=== PATIENT | female | born 1940 | race American Indian/Alaskan Native ===

== ENCOUNTER 2016-08-07 19:31 | Emergency (ER) | payer MEDICARE, OTHER ==
[2016-08-07 21:25] VITALS: BP 172/93
[2016-08-07] MEDS ORDERED: Acetaminophen 325 MG Tab PO ONE (21:26)
[2016-08-07] MEDS ORDERED: LORazepam 0.5 MG Tab PO ONE ×2 (21:51→22:54)
[2016-08-07] MEDS ORDERED: Albuterol 0.083% 2.5 MG/3 ML Neb Soln NEB ONE (21:52)
[2016-08-07 22:33] LABS: CHLORIDE,CL 103 mmol/L (101-111); SODIUM,NA 135 mmol/L (135-145)
--- NOTE | 2016-08-07 22:51 | EDM.PDOC ---
ED HPI GENERAL MEDICAL PROBLEM - General Chief Complaint: General Stated Complaint: FELL JITTERY/ANXIOUS/COLD Time Seen by Provider: 08/07/16 20:15 Source of Information: Reports: Patient History Limitations: Reports: No limitations - History of Present Illness INITIAL COMMENTS - FREE TEXT/NARRATIVE: c/o feeling anxious and "jittery" chilled all day. Cough past few days. Has been at hospital all day with spouse. Not used nebs or taken meds today. Seeing on 08/13 for anxiety. Quality: Reports: Same as previous episode Associated Symptoms: Reports: chest pain, cough, fever/chills, other (anxiety) - Related Data Allergies Allergy/AdvReac Type Severity Reaction Status Date / Time erythromycin base Allergy Unknown Rash Verified 08/07/16 20:10 [Erythromycin Base] ampicillin AdvReac Unknown swelling Verified 08/07/16 20:10 of legs and feet codeine AdvReac Unknown dizzy and Verified 08/07/16 20:10 lightheaded Penicillins AdvReac Unknown swelling Verified 08/07/16 20:10 of legs and feet Home Meds: Home Meds Albuterol [Proventil Neb Soln] 3 ml NEB Q6H PRN 07/23/13 [History] Hydrochlorothiazide 25 mg PO DAILY 07/23/13 [History] Lisinopril 40 mg PO DAILY 07/23/13 [History] Mometasone/Formoterol [Dulera 200 MCG/5 MCG] 2 puff INH BID 07/23/13 [History] Tiotropium [Spiriva Handihaler] 18 mcg INH BID 07/23/13 [History] metFORMIN [Glucophage] 1,000 mg PO DAILY 07/23/13 [History] Aspirin [Halfprin] 81 mg PO BRK 05/11/15 [History] Past Medical History Cardiovascular History: Reports: Hypertension Respiratory History: Reports: Asthma, COPD, SOB Other Gastrointestinal History: Appendicitis Musculoskeletal History: Reports: Arthritis Psychiatric History: Reports: Anxiety, Depression, Panic attack Endocrine/Metabolic History: Reports: Diabetes, type II Hematologic History: Reports: Anemia, Blood transfusion(s) - Infectious Disease History Infectious Disease History: Reports: None - Past Surgical History HEENT Surgical History: Reports: Tonsillectomy GI Surgical History: Reports: Appendectomy, Cholecystectomy Musculoskeletal Surgical History: Reports: Arthroscopic knee Social & Family History - Family History Family Medical History: Noncontributory - Tobacco Use Smoking Status *Q: Never Smoker Years of Tobacco use: 1 Used Tobacco, but Quit: Yes Month Tobacco Last Used: April Second Hand Smoke Exposure: Yes - Caffeine Use Caffeine Use: Reports: Coffee, Soda, Tea - Alcohol Use Days Per Week of Alcohol Use: 0 - Recreational Drug Use Recreational Drug Use: No - Living Situation & Occupation Living situation: Reports: with family Occupation: retired ED ROS GENERAL - Review of Systems Review Of Systems: See Below Constitutional: Reports: chills. Denies: decreased appetite HEENT: Reports: No symptoms Respiratory: Reports: Pleuritic Chest Pain, Cough, Sputum (green at times). Denies: Shortness of Breath Cardiovascular: Reports: No symptoms. Denies: Edema, Lightheadedness GI/Abdominal: Reports: No symptoms Musculoskeletal: Reports: no symptoms Skin: Reports: no symptoms Neurological: Reports: No Symptoms Psychiatric: Reports: Anxiety ED EXAM, GENERAL - Physical Exam Exam: See Below Exam Limited By: No limitations General Appearance: alert, anxious Eye Exam: bilateral eye: PERRL Ears: normal external exam, normal TMs Nose: normal inspection Throat/Mouth: Normal inspection Head: atraumatic, normocephalic Neck: normal inspection, supple Respiratory/Chest: no respiratory distress, lungs clear, decreased breath sounds (bases). No: respiratory distress, rales, rhonchi, wheezing Cardiovascular: normal peripheral pulses, regular rate, rhythm, no edema GI/Abdominal: normal bowel sounds Back Exam: normal inspection Extremities: normal inspection Neurological: alert, oriented, normal cognition Psychiatric: normal affect, anxious Skin Exam: Warm, Dry, Intact, Normal color Course - Vital Signs Last Recorded V/S: Last Vital Signs Temp 99.7 F 08/07/16 22:33 Pulse 104 H 08/07/16 22:13 Resp 24 H 08/07/16 21:25 BP 172/93 H 08/07/16 21:25 Pulse Ox 95 08/07/16 21:25 - Orders/Labs/Meds Orders: Active Orders 24 hr Category Date Time Status RT Aerosol Therapy [RC] ASDIRECTED Care 08/07/16 21:52 Active CULTURE BLOOD [BC] Stat Lab 08/07/16 21:45 Received CULTURE BLOOD [BC] Stat Lab 08/07/16 21:50 Received Blood Culture x2 Reflex Set [OM.PC] Stat Oth 08/07/16 21:26 Ordered Labs: Laboratory Tests 08/07/16 08/07/16 08/07/16 Range/Units 21:45 21:45 21:45 WBC 10.2 H (5.0-10.0) 10^3/uL RBC 4.56 (4.2-5.4) 10^6/uL Hgb 11.9 L (12.0-16.0) g/dL Hct 36.9 L (37.0-47.0) % MCV 80.9 (80-100) fL MCH 26.1 L (27.0-34.0) pg MCHC 32.2 L (33.0-35.0) g/dL Plt Count 247 (150-450) 10^3/uL Neut % (Auto) 75.2 (42.2-75.2) % Lymph % (Auto) 14.1 L (20.5-50.1) % [place] % (Auto) 8.9 H (2-8) % Eos % (Auto) 1.6 (1.0-3.0) % Baso % (Auto) 0.2 (0.0-1.0) % Sodium 135 (135-145) mmol/L Potassium 3.3 L (3.6-5.0) mmol/L Chloride 103 (101-111) mmol/L Carbon Dioxide 26.0 (21.0-31.0) mmol/L Anion Gap 9.3 BUN 9 (7-18) mg/dL Creatinine 0.8 (0.6-1.3) mg/dL Est Cr Clr Drug Dosing 45.14 mL/min Estimated GFR (MDRD) > 60 BUN/Creatinine Ratio 11.25 Glucose 160 H (74-105) mg/dL Calcium 8.4 (8.4-10.2) mg/dl Total Bilirubin 1.2 H (0.2-1.0) mg/dL AST 29 (10-42) IU/L ALT 17 (10-60) IU/L Alkaline Phosphatase 105 (42-121) IU/L C-Reactive Protein 2.1 H (0.0-1.3) mg/dL Total Protein 7.5 (6.7-8.2) g/dl Albumin 3.8 (3.2-5.5) g/dl Globulin 3.7 Albumin/Globulin Ratio 1.03 Meds: Medications Discontinued Medications Generic Name Dose Route Start Last Admin Trade Name Ashley PRN Reason Stop Dose Admin Acetaminophen 650 mg 08/07/16 21:26 08/07/16 21:32 Tylenol PO 08/07/16 21:27 650 mg NOW ONE Administration Albuterol 2.5 mg 08/07/16 21:52 08/07/16 22:00 Proventil Neb Soln NEB 08/07/16 21:53 2.5 mg ONETIME ONE Administration Lorazepam 0.5 mg 08/07/16 21:51 08/07/16 22:02 Ativan PO 08/07/16 21:52 0.5 mg ONETIME ONE Administration Lorazepam Confirm 08/07/16 22:54 08/07/16 23:33 Ativan Administered 08/07/16 22:55 Not Given Dose 1 mg .ROUTE .STK-MED ONE - Radiology Interpretation Free Text/Narrative:: CXR negative Departure - Departure Time of Disposition: 22:48 Disposition: Home, Self-Care 01 Condition: good Clinical Impression: COPD (chronic obstructive pulmonary disease) Qualifiers: COPD type: chronic bronchitis Chronic bronchitis type: unspecified Qualified Code(s): J42 - Unspecified chronic bronchitis Instructions: Shortness of Breath, [id number] Referrals: PCP,Unobtain [Primary Care Provider] - Forms: ED Department Discharge Additional Instructions: lorazepam 0.5mg one every 6 hours as needed for severe anxiety #2 Continue home medications Make sure to so scheduled nebulizer treatments during day follow up if symptoms change take rest periods during day - My Orders Last 24 Hours: My Active Orders 08/07/16 21:26 Blood Culture x2 Reflex Set [OM.PC] Stat 08/07/16 21:45 CULTURE BLOOD [BC] Stat 08/07/16 21:50 CULTURE BLOOD [BC] Stat 08/07/16 21:52 RT Aerosol Therapy [RC] ASDIRECTED - Assessment/Plan Last 24 Hours: My Active Orders 08/07/16 21:26 Blood Culture x2 Reflex Set [OM.PC] Stat 08/07/16 21:45 CULTURE BLOOD [BC] Stat 08/07/16 21:50 CULTURE BLOOD [BC] Stat 08/07/16 21:52 RT Aerosol Therapy [RC] ASDIRECTED
[2016-08-07] MEDS ORDERED: LORazepam 0.5 MG Tab ONE (22:54)
== END 2016-08-07 22:58 | disposition home or self-care (01) ==
LOC: DL.ED 19:31
DX: J42 Unspecified chronic bronchitis (principal); I10 Essential (primary) hypertension; J45.909 Unspecified asthma, uncomplicated; M19.90 Unspecified osteoarthritis, unspecified site; F41.9 Anxiety disorder, unspecified; F32.9 Major depressive disorder, single episode, unspecified; E11.9 Type 2 diabetes mellitus without complications; Z86.2 Personal history of diseases of the blood and blood-forming organs and certain disorders involving the immune mechanism; Z88.0 Allergy status to penicillin; Z88.1 Allergy status to other antibiotic agents; Z88.5 Allergy status to narcotic agent; Z79.82 Long term (current) use of aspirin; Z79.84 Long term (current) use of oral hypoglycemic drugs; Z79.899 Other long term (current) drug therapy; Z98.890 Other specified postprocedural states; Z90.49 Acquired absence of other specified parts of digestive tract
CPT/HCPCS: 36415; 71020; 80053; 85025; 86140; 87040; 94640; 99284; A9270; J7620; 99283

== ENCOUNTER 2016-10-02 22:03 | Emergency (ER) | payer MEDICARE, OTHER ==
[2016-10-02 22:50] VITALS: BP 134/93
--- NOTE | 2016-10-02 23:28 | EDM.PDOC ---
ED HPI GENERAL MEDICAL PROBLEM - General Chief Complaint: Respiratory Problem Stated Complaint: HIGH TEMP, [id number] Time Seen by Provider: 10/02/16 23:17 Source of Information: Reports: Patient History Limitations: Reports: No Limitations - History of Present Illness INITIAL COMMENTS - FREE TEXT/NARRATIVE: This 76 yo female patient reports to the ED with increased shortness of breath and a cough. The patient reports she has a history of COPD, but has been having the current cough for the past 3-4 days. The patient reports she had a fever while at home of 102. The patient reports she took Tylenol (1000 mg) due to her fever. The patient reports she has not been in to see a primary care facility due to a change in the providers at the [facility]. The patient reports she does have an appointment at the end of the month with Luanne Jasmine. Onset: Gradual Duration: Day(s):, Constant, Getting Worse Location: Reports: Chest Quality: Reports: Dull Severity: Moderate Improves with: Reports: Rest Worsens with: Reports: Movement Context: Reports: Other Associated Symptoms: Reports: cough w sputum, Fever/Chills Treatments SUPPORT TECHNICIAN: Reports: Acetaminophen Epigastric Pain Score (Numeric/FACES): 5 - Related Data Allergies Allergy/AdvReac Type Severity Reaction Status Date / Time erythromycin base Allergy Unknown Rash Verified 10/02/16 22:51 [Erythromycin Base] ampicillin AdvReac Unknown swelling Verified 10/02/16 22:51 of legs and feet codeine AdvReac Unknown dizzy and Verified 10/02/16 22:51 lightheaded Penicillins AdvReac Unknown swelling Verified 10/02/16 22:51 of legs and feet Home Meds: Home Meds Albuterol [Proventil Neb Soln] 3 ml NEB Q6H PRN 07/23/13 [History] Hydrochlorothiazide 25 mg PO DAILY 07/23/13 [History] Lisinopril 40 mg PO DAILY 07/23/13 [History] Mometasone/Formoterol [Dulera 200 MCG/5 MCG] 2 puff INH BID 07/23/13 [History] Tiotropium [Spiriva Handihaler] 18 mcg INH BID 07/23/13 [History] metFORMIN [Glucophage] 1,000 mg PO DAILY 07/23/13 [History] Aspirin [Halfprin] 81 mg PO BRK 05/11/15 [History] Past Medical History Cardiovascular History: Reports: Hypertension Respiratory History: Reports: Asthma, COPD, SOB Other Gastrointestinal History: Appendicitis Musculoskeletal History: Reports: Arthritis Psychiatric History: Reports: Anxiety, Depression, Panic Attack Endocrine/Metabolic History: Reports: Diabetes, Type II Hematologic History: Reports: Anemia, Blood Transfusion(s) - Infectious Disease History Infectious Disease History: Reports: None - Past Surgical History HEENT Surgical History: Reports: Tonsillectomy GI Surgical History: Reports: Appendectomy, Cholecystectomy Musculoskeletal Surgical History: Reports: Arthroscopic Knee Social & Family History - Family History Family Medical History: Noncontributory - Tobacco Use Smoking Status *Q: Never Smoker Years of Tobacco use: 1 Used Tobacco, but Quit: Yes Month Tobacco Last Used: April Hand Smoke Exposure: No - Caffeine Use Caffeine Use: Reports: Coffee, Soda, Tea - Alcohol Use Days Per Week of Alcohol Use: 0 - Recreational Drug Use Recreational Drug Use: No - Living Situation & Occupation Living situation: Reports: with Family Occupation: Retired ED ROS GENERAL - Review of Systems Review Of Systems: ROS reveals no pertinent complaints other than HPI. ED EXAM, GENERAL - Physical Exam Exam: See Below Exam Limited By: No Limitations General Appearance: Alert, WD/WN, Moderate Distress, Obese Eye Exam: Bilateral Eye: EOMI, Normal Inspection, PERRL Ears: Normal External Exam, Normal Canal, Hearing Grossly Normal, Normal TMs Nose: Normal Inspection, Normal Mucosa, No Blood Throat/Mouth: Normal Inspection, Normal Lips, Normal Teeth, Normal Gums, Normal Oropharynx, Normal Voice, No Airway Compromise Head: Atraumatic, Normocephalic Neck: Normal Inspection, Supple, Non-Tender, Full Range of Motion Respiratory/Chest: Decreased Breath Sounds, Rhonchi (diffuse) Cardiovascular: Normal Peripheral Pulses, Regular Rate, Rhythm, No Edema, No Gallop, No JVD, No Murmur, No Rub GI/Abdominal: Normal Bowel Sounds, Soft, Non-Tender, No Organomegaly, No Distention, No Abnormal Bruit, No Mass (Female) Exam: Deferred Rectal (Female) Exam: Deferred Back Exam: Normal Inspection, Full Range of Motion Extremities: Normal Inspection, Normal Range of Motion, Non-Tender, Normal Capillary Refill, No Pedal Edema Neurological: Alert, Oriented, CN II-XII Intact, Normal Cognition, No Motor/ Sensory Deficits Psychiatric: Normal Affect, Normal Mood Skin Exam: Warm, Dry, Intact, Normal Color, No Rash Lymphatic: No Adenopathy Course - Vital Signs Last Recorded V/S: Last Vital Signs Temp 37.6 C 10/02/16 22:46 Pulse 95 10/02/16 22:46 Resp 18 10/02/16 22:46 BP 134/93 H 10/02/16 22:46 Pulse Ox 95 10/02/16 22:46 - Orders/Labs/Meds Orders: Active Orders 24 hr Category Date Time Status CULTURE BLOOD [BC] Stat Lab 10/02/16 23:32 Received Sodium Chloride 0.9% [Normal Saline] 500 ml Med 10/02/16 23:30 Active IV .BOLUS cefTRIAXone [Rocephin] 1 gm Med 10/03/16 00:11 Ordered Sodium Chloride 0.9% [Normal Saline] 50 ml IV ONETIME Medication Orders Sodium Chloride (Normal Saline) 500 mls @ 999 mls/hr IV .BOLUS VLAD Last Admin: 10/02/16 23:33 Dose: 999 mls/hr Ceftriaxone Sodium 1 gm/ (Sodium Chloride) 50 mls @ 100 mls/hr IV ONETIME ONE Stop: 10/03/16 00:40 Labs: Laboratory Tests 10/02/16 10/02/16 10/02/16 Range/Units 23:32 23:32 23:32 WBC 12.9 H (5.0-10.0) 10^3/uL RBC 4.65 (4.2-5.4) 10^6/uL Hgb 12.2 (12.0-16.0) g/dL Hct 37.6 (37.0-47.0) % MCV 80.9 (80-100) fL MCH 26.2 L (27.0-34.0) pg MCHC 32.4 L (33.0-35.0) g/dL Plt Count 261 (150-450) 10^3/uL Neut % (Auto) 77.1 H (42.2-75.2) % Lymph % (Auto) 14.8 L (20.5-50.1) % [place] % (Auto) 7.0 (2-8) % Eos % (Auto) 0.9 L (1.0-3.0) % Baso % (Auto) 0.2 (0.0-1.0) % Sodium 135 (135-145) mmol/L Potassium 3.6 (3.6-5.0) mmol/L Chloride 102 (101-111) mmol/L Carbon Dioxide 25.0 (21.0-31.0) mmol/L Anion Gap 11.6 BUN 14 (7-18) mg/dL Creatinine 0.7 (0.6-1.3) mg/dL Est Cr Clr Drug Dosing 56.56 mL/min Estimated GFR (MDRD) > 60 BUN/Creatinine Ratio 20.00 Glucose 136 H (74-105) mg/dL Lactic Acid 0.9 (0.5-2.2) mmol/L Calcium 8.8 (8.4-10.2) mg/dl Total Bilirubin 1.3 H (0.2-1.0) mg/dL AST 32 (10-42) IU/L ALT 20 (10-60) IU/L Alkaline Phosphatase 97 (42-121) IU/L Total Protein 7.8 (6.7-8.2) g/dl Albumin 3.9 (3.2-5.5) g/dl Globulin 3.9 Albumin/Globulin Ratio 1.00 Meds: Medications Generic Name Dose Route Start Last Admin Trade Name Freq PRN Reason Stop Dose Admin Sodium Chloride 500 mls @ 999 mls/hr 10/02/16 23:30 10/02/16 23:33 Normal Saline IV 999 mls/hr .BOLUS VLAD Administration Ceftriaxone Sodium 1 gm/ 50 mls @ 100 mls/hr 10/03/16 00:11 Sodium Chloride IV 10/03/16 00:40 ONETIME ONE Discontinued Medications Generic Name Dose Route Start Last Admin Trade Name Freq PRN Reason Stop Dose Admin Azithromycin 500 mg 10/03/16 00:11 Zithromax PO 10/03/16 00:12 ONETIME ONE Benzonatate 200 mg 10/03/16 00:13 Tessalon Perles PO 10/03/16 00:14 ONETIME ONE Departure - Departure Time of Disposition: 00:25 Disposition: Home, Self-Care 01 Condition: fair Clinical Impression: Bronchitis - Discharge Information Instructions: Acute Bronchitis, [id number] Forms: ED Department Discharge Care Plan Goals: The patient was advised of the examination, lab and x-ray results during the visit. The patient was given an IV dose of Rocephin, an oral dose of Azithromycin and an oral dose of Tessalon Perles while in the ED. The patient was discharged with a script for Azithromycin (250 mg) #4 to take 1 by mouth daily for 4 days and Tessalon Perles (200 mg) #30 to take 1 by mouth 3 times per day. If the patient has any additional symptoms or concerns, the patient should follow-up with her primary care facility or return to the emergency department. - My Orders Last 24 Hours: My Active Orders 10/02/16 23:30 Sodium Chloride 0.9% [Normal Saline] 500 ml IV .BOLUS 10/02/16 23:32 CULTURE BLOOD [BC] Stat 10/03/16 00:11 cefTRIAXone [Rocephin] 1 gm Sodium Chloride 0.9% [Normal Saline] 50 ml IV ONETIME - Assessment/Plan Last 24 Hours: My Active Orders 10/02/16 23:30 Sodium Chloride 0.9% [Normal Saline] 500 ml IV .BOLUS 10/02/16 23:32 CULTURE BLOOD [BC] Stat 10/03/16 00:11 cefTRIAXone [Rocephin] 1 gm Sodium Chloride 0.9% [Normal Saline] 50 ml IV ONETIME
[2016-10-02] MEDS ORDERED: Sodium Chloride 0.9% 500 ML IV SCH (23:30)
[2016-10-03] LABS: CHLORIDE,CL 102 mmol/L (101-111); SODIUM,NA 135 mmol/L (135-145)
[2016-10-03] MEDS ORDERED: Azithromycin 250 MG Tab PO ONE (00:11)
[2016-10-03] MEDS ORDERED: cefTRIAXone 1 GM in Sodium Chloride 0.9% 50 ML IV ONE (00:11)
[2016-10-03] MEDS ORDERED: Benzonatate 100 MG Cap PO ONE (00:13)
== END 2016-10-03 01:00 | disposition home or self-care (01) ==
LOC: DL.ED 22:03
DX: J40 Bronchitis, not specified as acute or chronic (principal); I10 Essential (primary) hypertension; J45.909 Unspecified asthma, uncomplicated; J44.9 Chronic obstructive pulmonary disease, unspecified; M19.90 Unspecified osteoarthritis, unspecified site; E11.9 Type 2 diabetes mellitus without complications; Z86.2 Personal history of diseases of the blood and blood-forming organs and certain disorders involving the immune mechanism; Z90.49 Acquired absence of other specified parts of digestive tract; Z88.0 Allergy status to penicillin; Z88.1 Allergy status to other antibiotic agents; Z88.5 Allergy status to narcotic agent; Z79.899 Other long term (current) drug therapy; Z79.82 Long term (current) use of aspirin
CPT/HCPCS: 36415; 71020; 80053; 83605; 85025; 87040; 96365; 99284; A9270; J0696; J7040; J7050

== ENCOUNTER 2017-01-16 20:43 | Emergency (ER) | payer MEDICARE, OTHER ==
[2017-01-16] MEDS ORDERED: LORazepam 0.5 MG Tab PO ONE ×2 (20:44→23:39)
[2017-01-16 22:45] VITALS: BP 147/71
[2017-01-16] MEDS ORDERED: Albuterol 0.083% 2.5 MG/3 ML Neb Soln NEB ONE (23:39)
--- NOTE | 2017-01-17 00:45 | EDM.PDOC ---
ED HPI GENERAL MEDICAL PROBLEM - General Chief Complaint: Respiratory Problem Stated Complaint: HARD TIME BREATHING, [id number] Time Seen by Provider: 01/16/17 21:30 Source of Information: Reports: Patient History Limitations: Reports: No Limitations - History of Present Illness INITIAL COMMENTS - FREE TEXT/NARRATIVE: C/O of feeling short of breath, anxious and not sleeping well. Occasional cough. No fever. Reports upcoming pulmonology appointment. Has mental [facility] appointment tomorrow and felling anxious about that also. Notes some guilt that spouse is in [place] but admits that he is doing well and his health has been better since being in home. Onset: Today - Related Data Allergies Allergy/AdvReac Type Severity Reaction Status Date / Time erythromycin base Allergy Unknown Rash Verified 01/16/17 21:05 [Erythromycin Base] ampicillin AdvReac Unknown swelling Verified 01/16/17 21:05 of legs and feet codeine AdvReac Unknown dizzy and Verified 01/16/17 21:05 lightheaded Penicillins AdvReac Unknown swelling Verified 01/16/17 21:05 of legs and feet Home Meds: Home Meds Albuterol [Proventil Neb Soln] 3 ml NEB Q6H PRN 07/23/13 [History] Hydrochlorothiazide 25 mg PO DAILY 07/23/13 [History] Lisinopril 40 mg PO DAILY 07/23/13 [History] Mometasone/Formoterol [Dulera 200 MCG/5 MCG] 2 puff INH BID 07/23/13 [History] Tiotropium [Spiriva Handihaler] 18 mcg INH BID 07/23/13 [History] metFORMIN [Glucophage] 1,000 mg PO DAILY 07/23/13 [History] Aspirin [Halfprin] 81 mg PO BRK 05/11/15 [History] Past Medical History Cardiovascular History: Reports: Hypertension Respiratory History: Reports: Asthma, COPD, SOB Other Gastrointestinal History: Appendicitis 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: Musculoskeletal History: Reports: Arthritis Psychiatric History: Reports: Anxiety, Depression, Panic Attack Endocrine/Metabolic History: Reports: Diabetes, Type II Hematologic History: Reports: Anemia, Blood Transfusion(s) - Infectious Disease History Infectious Disease History: Reports: None - Past Surgical History HEENT Surgical History: Reports: Tonsillectomy GI Surgical History: Reports: Appendectomy, Cholecystectomy Musculoskeletal Surgical History: Reports: Arthroscopic Knee Social & Family History - Family History Family Medical History: Noncontributory - Tobacco Use Smoking Status *Q: Never Smoker Years of Tobacco use: 1 Used Tobacco, but Quit: Yes Month Tobacco Last Used: April Second Hand Smoke Exposure: Yes - Caffeine Use Caffeine Use: Reports: None - Alcohol Use Days Per Week of Alcohol Use: 0 - Recreational Drug Use Recreational Drug Use: No - Living Situation & Occupation Living situation: Reports: with Family Occupation: Retired ED ROS GENERAL - Review of Systems Review Of Systems: See Below Constitutional: Reports: No Symptoms. Denies: Fever HEENT: Reports: Throat Pain (intermittent) Respiratory: Reports: Shortness of Breath, Wheezing Cardiovascular: Reports: No Symptoms GI/Abdominal: Reports: No Symptoms Musculoskeletal: Reports: No Symptoms Skin: Reports: No Symptoms Neurological: Reports: No Symptoms Psychiatric: Reports: Anxiety ED EXAM, GENERAL - Physical Exam Exam: See Below Exam Limited By: No Limitations General Appearance: Alert, No Apparent Distress Eye Exam: Bilateral Eye: EOMI Ears: Normal External Exam, Hearing Grossly Normal, Normal TMs Ear Exam: Bilateral Ear: Auricle Normal, Canal Normal, TM normal Nose: Normal Inspection Throat/Mouth: Normal Inspection, Normal Oropharynx Head: Atraumatic, Normocephalic Neck: Normal Inspection. No: Lymphadenopathy (L), Lymphadenopathy (R) Respiratory/Chest: No Respiratory Distress, Decreased Breath Sounds, Wheezing ( scattered expiratory clears with deep inspiration) Cardiovascular: Normal Peripheral Pulses, Regular Rate, Rhythm GI/Abdominal: Normal Bowel Sounds Neurological: Alert, Oriented, Normal Cognition, Normal Gait Psychiatric: Normal Affect, Anxious, Flat Affect Skin Exam: Warm, Intact, Normal Color, No Rash Course - Vital Signs Last Recorded V/S: Last Vital Signs Temp 97.6 F 01/16/17 22:44 Pulse 70 01/16/17 22:44 Resp 16 01/16/17 22:44 BP 147/71 H 01/16/17 22:44 Pulse Ox 96 01/16/17 22:44 - Orders/Labs/Meds Meds: Medications Discontinued Medications Generic Name Dose Route Start Last Admin Trade Name Freq PRN Reason Stop Dose Admin Albuterol 2.5 mg 01/16/17 23:39 01/16/17 23:45 Proventil Neb Soln NEB 01/16/17 23:40 2.5 mg ONETIME ONE Administration Lorazepam 0.5 mg 01/16/17 23:39 01/16/17 23:44 Ativan PO 01/16/17 23:40 0.5 mg ONETIME ONE Administration Lorazepam Confirm 01/17/17 00:52 Ativan Administered 01/17/17 00:53 Dose 1 mg .ROUTE .STK-MED ONE Lorazepam 1 mg 01/16/17 20:44 Ativan PO 01/16/17 20:45 .STK-MED ONE - Radiology Interpretation Free Text/Narrative:: CXR unremarkable, no pnuemonia, - Re-Assessments/Exams Free Text/Narrative Re-Assessment/Exam: 01/24/17 10:52 Improved breath sounds following neb. 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
[2017-01-17] MEDS ORDERED: LORazepam 0.5 MG Tab ONE (00:52)
== END 2017-01-17 00:59 | disposition home or self-care (01) ==
LOC: DL.ED 20:43
DX: J44.9 Chronic obstructive pulmonary disease, unspecified (principal); F41.9 Anxiety disorder, unspecified; I10 Essential (primary) hypertension; F32.9 Major depressive disorder, single episode, unspecified; M19.90 Unspecified osteoarthritis, unspecified site; E11.21 Type 2 diabetes mellitus with diabetic nephropathy; Z86.2 Personal history of diseases of the blood and blood-forming organs and certain disorders involving the immune mechanism; Z90.49 Acquired absence of other specified parts of digestive tract; Z98.890 Other specified postprocedural states; Z87.891 Personal history of nicotine dependence; Z79.84 Long term (current) use of oral hypoglycemic drugs; Z79.82 Long term (current) use of aspirin; Z79.899 Other long term (current) drug therapy; Z88.0 Allergy status to penicillin; Z88.1 Allergy status to other antibiotic agents; Z88.5 Allergy status to narcotic agent
CPT/HCPCS: 71010; 99284; 99285; A9270; J7620

== ENCOUNTER 2017-02-18 20:31 | Emergency (ER) | payer MEDICARE, OTHER ==
[2017-02-18 20:37] VITALS: BP 156/62
[2017-02-18] MEDS ORDERED: Sodium Chloride 0.9% 10 ML Syringe FLUSH PRN (20:54)
--- NOTE | 2017-02-18 21:01 | EDM.PDOC ---
ED HPI GENERAL MEDICAL PROBLEM - General Chief Complaint: Syncope Stated Complaint: [facility] Time Seen by Provider: 02/18/17 20:40 Source of Information: Reports: Patient History Limitations: Reports: No Limitations, Altered Mental Status - History of Present Illness INITIAL COMMENTS - FREE TEXT/NARRATIVE: patient comes emergency department today with complaints of shortness of breath and cough. Patient does have a history of COPD and over the past 3 days has had increasing amount of coughing in the evening as well as shortness of breath. She has tried her home nebulizer without relief. She does complain of some generalized weakness and tiredness over the past 3 days as well. Denies any fevers but does complain of chills. Denies any pain in her chest. She is unable to produce anything when she coughs. Denies any abdominal pain nausea or vomiting. Denies any hematuria dysuria or urinary frequency. Denies any flank pain. She also relates that she has been dealing with quite a bit of stress recently and is quite anxious. She typically sleeps in the recliner at home and has done so for the past 4 years due to some pain in her knee following her procedure and she is unable to sleep in a bed. Her was recently put in the skilled nursing and she has to commute to see him every day. She lies awake at night many times worrying and concerned about many family tragic deaths as well as her in the skilled nursing. She lives a home alone for the first time in her life. 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 - Related Data Allergies Allergy/AdvReac Type Severity Reaction Status Date / Time erythromycin base Allergy Unknown Rash Verified 02/18/17 20:38 [Erythromycin Base] ampicillin AdvReac Unknown swelling Verified 02/18/17 20:38 of legs and feet codeine AdvReac Unknown dizzy and Verified 02/18/17 20:38 lightheaded Penicillins AdvReac Unknown swelling Verified 02/18/17 20:38 of legs and feet Home Meds: Home Meds Albuterol [Proventil Neb Soln] 3 ml NEB Q6H PRN 07/23/13 [History] Hydrochlorothiazide 25 mg PO DAILY 07/23/13 [History] Lisinopril 40 mg PO DAILY 07/23/13 [History] Mometasone/Formoterol [Dulera 200 MCG/5 MCG] 2 puff INH BID 07/23/13 [History] Tiotropium [Spiriva Handihaler] 18 mcg INH BID 07/23/13 [History] metFORMIN [Glucophage] 1,000 mg PO DAILY 07/23/13 [History] Aspirin [Halfprin] 81 mg PO BRK 05/11/15 [History] Past Medical History Cardiovascular History: Reports: Hypertension Respiratory History: Reports: Asthma, COPD, SOB Other Gastrointestinal History: Appendicitis 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: Musculoskeletal History: Reports: Arthritis Neurological History: Reports: Head Trauma Psychiatric History: Reports: Anxiety, Depression, Panic Attack Endocrine/Metabolic History: Reports: Diabetes, Type II Hematologic History: Reports: Anemia, Blood Transfusion(s) Immunologic History: Reports: None Oncologic (Cancer) History: Reports: None Dermatologic History: Reports: None - Infectious Disease History Infectious Disease History: Reports: None - Past Surgical History HEENT Surgical History: Reports: Tonsillectomy GI Surgical History: Reports: Appendectomy, Cholecystectomy Musculoskeletal Surgical History: Reports: Arthroscopic Knee Social & Family History - Family History Family Medical History: Noncontributory - Tobacco Use Smoking Status *Q: Never Smoker Years of Tobacco use: 1 Used Tobacco, but Quit: Yes Month Tobacco Last Used: April Second Hand Smoke Exposure: Yes - Caffeine Use Caffeine Use: Reports: None - Alcohol Use Days Per Week of Alcohol Use: 0 - Recreational Drug Use Recreational Drug Use: No - Living Situation & Occupation Living situation: Reports: with Family Occupation: Retired ED ROS GENERAL - Review of Systems Review Of Systems: ROS reveals no pertinent complaints other than HPI. ED EXAM, GENERAL - Physical Exam Exam: See Below Exam Limited By: No Limitations General Appearance: Alert, WD/WN, No Apparent Distress Ears: Normal External Exam, Normal Canal, Normal TMs Nose: Normal Inspection Throat/Mouth: Normal Inspection Head: Atraumatic, Normocephalic Neck: Normal Inspection, Supple, Non-Tender Respiratory/Chest: No Respiratory Distress, Lungs Clear, Normal Breath Sounds, No Accessory Muscle Use, Chest Non-Tender Cardiovascular: Normal Peripheral Pulses, Regular Rate, Rhythm, No Edema, No Gallop, No JVD, No Murmur Peripheral Pulses: 2+: Brachial (L), Brachial (R), Radial (L), Radial (R), Posterior Tibial (L), Posterior Tibial (R), Dorsalis Pedis (L), Dorsalis Pedis ( R) GI/Abdominal: Normal Bowel Sounds, Soft, Non-Tender, No Organomegaly, No Distention (Female) Exam: Deferred Rectal (Female) Exam: Deferred Back Exam: Normal Inspection, Full Range of Motion Extremities: Normal Inspection, Normal Range of Motion, Non-Tender, No Pedal Edema, Normal Capillary Refill Neurological: Alert, Oriented, CN II-XII Intact, Normal Cognition Psychiatric: Normal Affect Skin Exam: Warm, Dry, Intact, Normal Color, No Rash Lymphatic: No Adenopathy EKG INTERPRETATION EKG Date: 02/18/17 Time: 20:38 Rhythm: NSR Rate (Beats/Min): 79 P-Wave: Present QRS: Other (and Left anterior fasicular block.) ST-T: Normal QT: Normal Comparison: No Change Course - Vital Signs Last Recorded V/S: Last Vital Signs Temp 36.3 C 02/18/17 20:33 Pulse 77 02/18/17 20:33 Resp 20 02/18/17 20:33 BP 156/62 H 02/18/17 20:33 Pulse Ox 97 02/18/17 20:33 - Orders/Labs/Meds Orders: Active Orders 24 hr Category Date Time Status EKG 12 Lead [EKG Documentation Completion] [RC] STAT Care 02/18/17 20:39 Active Peripheral IV Care [RC] . DIRECTED Care 02/18/17 20:54 Active LORazepam [Ativan] Med 02/18/17 21:39 Once 0.5 mg PO ONETIME ONE Sodium Chloride 0.9% [Saline Flush] Med 02/18/17 20:54 Active 10 ml FLUSH ASDIRECTED PRN Peripheral IV Insertion Adult [OM.PC] Stat Oth 02/18/17 20:54 Ordered Medication Orders Sodium Chloride (Saline Flush) 10 ml FLUSH ASDIRECTED PRN PRN Reason: Keep Vein Open Last Admin: 02/18/17 20:50 Dose: 10 ml Labs: Laboratory Tests 02/18/17 02/18/17 02/18/17 Range/Units 20:47 20:47 20:47 WBC 6.6 (5.0-10.0) 10^3/uL RBC 4.23 (4.2-5.4) 10^6/uL Hgb 11.6 L (12.0-16.0) g/dL Hct 34.9 L (37.0-47.0) % MCV 82.5 (80-100) fL MCH 27.4 (27.0-34.0) pg MCHC 33.2 (33.0-35.0) g/dL Plt Count 267 (150-450) 10^3/uL Neut % (Auto) 46.4 (42.2-75.2) % Lymph % (Auto) 38.4 (20.5-50.1) % [place] % (Auto) 11.8 H (2-8) % Eos % (Auto) 3.2 H (1.0-3.0) % Baso % (Auto) 0.2 (0.0-1.0) % Sodium 133 L (135-145) mmol/L Potassium 3.4 L (3.6-5.0) mmol/L Chloride 99 L (101-111) mmol/L Carbon Dioxide 26.0 (21.0-31.0) mmol/L Anion Gap 11.4 BUN 13 (7-18) mg/dL Creatinine 0.6 (0.6-1.3) mg/dL Est Cr Clr Drug Dosing 67.80 mL/min Estimated GFR (MDRD) > 60 BUN/Creatinine Ratio 21.66 Glucose 120 H (74-105) mg/dL Lactic Acid 1.3 (0.5-2.2) mmol/L Calcium 8.9 (8.4-10.2) mg/dl Total Bilirubin 0.9 (0.2-1.0) mg/dL AST 27 (10-42) IU/L ALT 16 (10-60) IU/L Alkaline Phosphatase 92 (42-121) IU/L Troponin I < 0.02 (0.00-0.02) ng/ml B-Natriuretic Peptide (0-100) pg/ml Total Protein 7.4 (6.7-8.2) g/dl Albumin 3.8 (3.2-5.5) g/dl Globulin 3.6 Albumin/Globulin Ratio 1.06 02/18/17 Range/Units 20:47 WBC (5.0-10.0) 10^3/uL RBC (4.2-5.4) 10^6/uL Hgb (12.0-16.0) g/dL Hct (37.0-47.0) % MCV (80-100) fL MCH (27.0-34.0) pg MCHC (33.0-35.0) g/dL Plt Count (150-450) 10^3/uL Neut % (Auto) (42.2-75.2) % Lymph % (Auto) (20.5-50.1) % [place] % (Auto) (2-8) % Eos % (Auto) (1.0-3.0) % Baso % (Auto) (0.0-1.0) % Sodium (135-145) mmol/L Potassium (3.6-5.0) mmol/L Chloride (101-111) mmol/L Carbon Dioxide (21.0-31.0) mmol/L Anion Gap BUN (7-18) mg/dL Creatinine (0.6-1.3) mg/dL Est Cr Clr Drug Dosing mL/min Estimated GFR (MDRD) BUN/Creatinine Ratio Glucose (74-105) mg/dL Lactic Acid (0.5-2.2) mmol/L Calcium (8.4-10.2) mg/dl Total Bilirubin (0.2-1.0) mg/dL AST (10-42) IU/L ALT (10-60) IU/L Alkaline Phosphatase (42-121) IU/L Troponin I (0.00-0.02) ng/ml B-Natriuretic Peptide 20 (0-100) pg/ml Total Protein (6.7-8.2) g/dl Albumin (3.2-5.5) g/dl Globulin Albumin/Globulin Ratio Meds: Medications Generic Name Dose Route Start Last Admin Trade Name Freq PRN Reason Stop Dose Admin Sodium Chloride 10 ml 02/18/17 20:54 02/18/17 20:50 Saline Flush FLUSH 10 ml ASDIRECTED PRN Administration Keep Vein Open - Radiology Interpretation Free Text/Narrative:: CXR per radiology, No acute pulmonary findings. No significant interval change when compared to the chest 01/16/17. - Re-Assessments/Exams Free Text/Narrative Re-Assessment/Exam: 02/18/17 21:42 review of the laboratory evaluation as well as a chest x-ray and the labs with the patient and family as a negative workup was relayed to them. Further discussion with the patient and the family this really sounds like anxiety not a true COPD exacerbation. Further discussion identifies that she has been more anxious especially at night when she goes to sleep at home alone since her has moved into the skilled nursing and she is anxious about sleeping by herself at home. Her shortness of breath is primarily at night when she is getting ready to go to bed. Recently she was seen in this emergency department and was prescribed Ativan with resolution of the above symptoms. Follow-up with her primary care at that time. I will give her another short course of Ativan at this time for her anxiety I do not think acute management of COPD exacerbation as needed with a negative workup and history of this going on for quite some time. Discussed this with patient and her family are comfortable with this plan and her questions are answered. Departure - Departure Time of Disposition: 19:39 Disposition: Home, Self-Care 01 Clinical Impression: SOB (shortness of breath), Anxiety Instructions: Panic Attacks, [id number], Chronic Obstructive Pulmonary Disease, [id number] Forms: ED Department Discharge Additional Instructions: Continue previous medication therapy for COPD. Ativan 0.5mg every 6 hrs as needed for anxiety. Caution sedation. RX given to the patient. Contact PCP and make appointment in the next week for residential therapy of your anxiety and counseling. Return to the ed if new or worsening symptoms. Recheck as guided above. - My Orders Last 24 Hours: My Active Orders 02/18/17 20:39 EKG 12 Lead [EKG Documentation Completion] [RC] STAT 02/18/17 20:54 Peripheral IV Care [RC] . DIRECTED Sodium Chloride 0.9% [Saline Flush] 10 ml FLUSH ASDIRECTED PRN Peripheral IV Insertion Adult [OM.PC] Stat 02/18/17 21:39 LORazepam [Ativan] 0.5 mg PO ONETIME ONE - Assessment/Plan Last 24 Hours: My Active Orders 02/18/17 20:39 EKG 12 Lead [EKG Documentation Completion] [RC] STAT 02/18/17 20:54 Peripheral IV Care [RC] . DIRECTED Sodium Chloride 0.9% [Saline Flush] 10 ml FLUSH ASDIRECTED PRN Peripheral IV Insertion Adult [OM.PC] Stat 02/18/17 21:39 LORazepam [Ativan] 0.5 mg PO ONETIME ONE Assessment:: Anxiety SOB/COPD Plan: Continue previous medication therapy for COPD. Ativan 0.5mg every 6 hrs as needed for anxiety. Caution sedation. RX given to the patient. Contact PCP and make appointment in the next week for residential therapy of your anxiety and counseling. Return to the ed if new or worsening symptoms. Recheck as guided above.
[2017-02-18 21:15] LABS: CHLORIDE,CL 99 mmol/L (101-111); SODIUM,NA 133 mmol/L (135-145)
[2017-02-18] MEDS ORDERED: LORazepam 0.5 MG Tab PO ONE (21:39)
--- NOTE | 2017-02-19 11:16 | EKG ---
02/18/2017 - NETTE ROBLERO - TIME: 2037 hours. FINDINGS: EKG shows normal sinus rhythm. There is right bundle-branch block. [facility] /[id number]
== END 2017-02-18 21:49 | disposition home or self-care (01) ==
LOC: DL.ED 20:31
DX: R06.02 Shortness of breath (principal); F41.9 Anxiety disorder, unspecified; J44.9 Chronic obstructive pulmonary disease, unspecified; Z88.1 Allergy status to other antibiotic agents; Z88.0 Allergy status to penicillin; Z88.5 Allergy status to narcotic agent; Z79.84 Long term (current) use of oral hypoglycemic drugs; Z79.82 Long term (current) use of aspirin
CPT/HCPCS: 36415; 71020; 80053; 83605; 83880; 84484; 85025; 93005; 93010; 99285; A9270; J7050

== ENCOUNTER 2017-05-12 17:46 | Emergency (ER) | payer MEDICARE, OTHER ==
[2017-05-12 17:55] VITALS: BP 148/80
[2017-05-12] MEDS ORDERED: Albuterol/Ipratropium 3.0-0.5 MG/3 ML Neb Soln NEB ONE (18:24)
--- NOTE | 2017-05-12 18:28 | EDM.PDOC ---
ED HPI GENERAL MEDICAL PROBLEM - General Stated Complaint: COLD [id number] Time Seen by Provider: 05/12/17 18:20 Source of Information: Reports: Patient History Limitations: Reports: No Limitations - History of Present Illness INITIAL COMMENTS - FREE TEXT/NARRATIVE: This 77 yo female patient reports to the ED with a 4 day history of increased shortness of breath. The patient reports that she has used her albuterol neb treatment 2 times today which helped her shortness of breath. The patient reports she has been previously diagnosed with COPD, but later told that she does not have COPD. The patient denies any fever or chills. Onset Date: 05/09/17 Duration: Day(s): (4), Constant, Getting Worse Location: Reports: Chest Quality: Reports: Other Severity: Moderate Improves with: Reports: Rest Worsens with: Reports: Movement Associated Symptoms: Reports: Cough, Fever/Chills, Shortness of Breath - Related Data Allergies Allergy/AdvReac Type Severity Reaction Status Date / Time erythromycin base Allergy Unknown Rash Verified 05/12/17 18:04 [Erythromycin Base] ampicillin AdvReac Unknown swelling Verified 05/12/17 18:04 of legs and feet codeine AdvReac Unknown dizzy and Verified 05/12/17 18:04 lightheaded Penicillins AdvReac Unknown swelling Verified 05/12/17 18:04 of legs and feet Home Meds: Home Meds Albuterol [Proventil Neb Soln] 3 ml NEB Q6H PRN 07/23/13 [History] Hydrochlorothiazide 25 mg PO DAILY 07/23/13 [History] Lisinopril 40 mg PO DAILY 07/23/13 [History] Mometasone/Formoterol [Dulera 200 MCG/5 MCG] 2 puff INH BID 07/23/13 [History] Tiotropium [Spiriva Handihaler] 18 mcg INH BID 07/23/13 [History] metFORMIN [Glucophage] 1,000 mg PO DAILY 07/23/13 [History] Aspirin [Halfprin] 81 mg PO BRK 05/11/15 [History] Past Medical History Cardiovascular History: Reports: Hypertension Respiratory History: Reports: Asthma, COPD, SOB Other Gastrointestinal History: Appendicitis 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: Musculoskeletal History: Reports: Arthritis Neurological History: Reports: Head Trauma Psychiatric History: Reports: Anxiety, Depression, Panic Attack Endocrine/Metabolic History: Reports: Diabetes, Type II Hematologic History: Reports: Anemia, Blood Transfusion(s) Immunologic History: Reports: None Oncologic (Cancer) History: Reports: None Dermatologic History: Reports: None - Infectious Disease History Infectious Disease History: Reports: None - Past Surgical History HEENT Surgical History: Reports: Tonsillectomy GI Surgical History: Reports: Appendectomy, Cholecystectomy Musculoskeletal Surgical History: Reports: Arthroscopic Knee Social & Family History - Family History Family Medical History: Noncontributory - Tobacco Use Smoking Status *Q: Never Smoker Years of Tobacco use: 1 Used Tobacco, but Quit: No Month Tobacco Last Used: April Second Hand Smoke Exposure: Yes - Caffeine Use Caffeine Use: Reports: None - Alcohol Use Days Per Week of Alcohol Use: 0 - Recreational Drug Use Recreational Drug Use: No - Living Situation & Occupation Living situation: Reports: with Family Occupation: Retired ED ROS GENERAL - Review of Systems Review Of Systems: ROS reveals no pertinent complaints other than HPI. ED EXAM, GENERAL - Physical Exam Exam: See Below Exam Limited By: No Limitations General Appearance: Alert, WD/WN, Anxious, Moderate Distress Eye Exam: Bilateral Eye: EOMI, Normal Inspection, PERRL Ears: Normal External Exam, Normal Canal, Hearing Grossly Normal, Normal TMs Nose: Normal Inspection, Normal Mucosa, No Blood Throat/Mouth: Normal Inspection, Normal Lips, Normal Teeth, Normal Gums, Normal Oropharynx, Normal Voice, No Airway Compromise Head: Atraumatic, Normocephalic Neck: Normal Inspection, Supple, Non-Tender, Full Range of Motion Respiratory/Chest: No Accessory Muscle Use, Chest Non-Tender, Decreased Breath Sounds, Rhonchi (diffuse mild) Cardiovascular: Normal Peripheral Pulses, Regular Rate, Rhythm, No Edema, No Gallop, No JVD, No Murmur, No Rub GI/Abdominal: Normal Bowel Sounds, Soft, Non-Tender, No Organomegaly, No Distention, No Abnormal Bruit, No Mass (Female) Exam: Deferred Rectal (Female) Exam: Deferred Back Exam: Normal Inspection, Full Range of Motion, NT Extremities: Normal Inspection, Normal Range of Motion, Non-Tender, Normal Capillary Refill, No Pedal Edema Neurological: Alert, Oriented, CN II-XII Intact, Normal Cognition, Normal Gait, Normal Reflexes, No Motor/Sensory Deficits Psychiatric: Normal Affect, Anxious Skin Exam: Warm, Dry, Intact, Normal Color, No Rash Lymphatic: No Adenopathy Course - Vital Signs Last Recorded V/S: Last Vital Signs Temp 37.0 C 05/12/17 17:54 Pulse 106 H 05/12/17 17:54 Resp 18 05/12/17 17:54 BP 148/80 H 05/12/17 17:54 Pulse Ox 96 05/12/17 17:54 - Orders/Labs/Meds Orders: Active Orders 24 hr Category Date Time Status RT Aerosol Therapy [RC] ASDIRECTED Care 05/12/17 18:24 Ordered CULTURE STREP A CONFIRMATION [] Stat Lab 05/12/17 17:56 Results STREP SCRN A RAPID W CULT CONF [] Stat Lab 05/12/17 17:58 Ordered Labs: Laboratory Tests 05/12/17 05/12/17 Range/Units 18:05 18:05 WBC 6.7 (5.0-10.0) 10^3/uL RBC 4.31 (4.2-5.4) 10^6/uL Hgb 11.5 L (12.0-16.0) g/dL Hct 34.8 L (37.0-47.0) % MCV 80.7 (80-100) fL MCH 26.7 L (27.0-34.0) pg MCHC 33.0 (33.0-35.0) g/dL Plt Count 240 (150-450) 10^3/uL Neut % (Auto) 65.4 (42.2-75.2) % Lymph % (Auto) 19.9 L (20.5-50.1) % [place] % (Auto) 13.5 H (2-8) % Eos % (Auto) 0.9 L (1.0-3.0) % Baso % (Auto) 0.3 (0.0-1.0) % Sodium 131 L (135-145) mmol/L Potassium 3.3 L (3.6-5.0) mmol/L Chloride 98 L (101-111) mmol/L Carbon Dioxide 24.0 (21.0-31.0) mmol/L Anion Gap 12.3 BUN 11 (7-18) mg/dL Creatinine 0.8 (0.6-1.3) mg/dL Est Cr Clr Drug Dosing 48.72 mL/min Estimated GFR (MDRD) > 60 BUN/Creatinine Ratio 13.75 Glucose 120 H (74-105) mg/dL Calcium 8.6 (8.4-10.2) mg/dl Total Bilirubin 0.7 (0.2-1.0) mg/dL AST 36 (10-42) IU/L ALT 22 (10-60) IU/L Alkaline Phosphatase 82 (42-121) IU/L Total Protein 7.5 (6.7-8.2) g/dl Albumin 3.8 (3.2-5.5) g/dl Globulin 3.7 Albumin/Globulin Ratio 1.03 Meds: Medications Discontinued Medications Generic Name Dose Route Start Last Admin Trade Name Freq PRN Reason Stop Dose Admin Albuterol/Ipratropium 3 ml 05/12/17 18:24 Duoneb 3.0-0.5 Mg/3 Ml NEB 05/12/17 18:25 ONETIME ONE Levofloxacin 500 mg 05/12/17 18:31 Levaquin PO 05/12/17 18:32 ONETIME ONE Methylprednisolone Sodium Succinate 40 mg 05/12/17 18:31 Solu-Medrol IM 05/12/17 18:32 ONETIME ONE Departure - Departure Time of Disposition: 18:35 Disposition: Home, Self-Care 01 Condition: Fair Clinical Impression: Bronchitis, COPD exacerbation - Discharge Information Instructions: Chronic Obstructive Pulmonary Disease Exacerbation, [id number] , Acute Bronchitis, [id number] Forms: ED Department Discharge Care Plan Goals: The patient was advised of the examination, lab and x-ray results during the visit. The patient was given a Duoneb treatment, an injection of Solumedrol and an oral dose of Levaquin while in the ED. The patient was discharged with a script for Levaquin (500 mg) #5 to take 1 by mouth daily for 5 days and a Medrol Dose Pack to take as directed. If the patient has any additional symptoms or concerns, the patient should follow-up with her primary care facility or return to the emergency department. - My Orders Last 24 Hours: My Active Orders 05/12/17 17:56 CULTURE STREP A CONFIRMATION [RM] Stat 05/12/17 17:58 STREP SCRN A RAPID W CULT CONF [RM] Stat 05/12/17 18:24 RT Aerosol Therapy [RC] ASDIRECTED - Assessment/Plan Last 24 Hours: My Active Orders 05/12/17 17:56 CULTURE STREP A CONFIRMATION [RM] Stat 05/12/17 17:58 STREP SCRN A RAPID W CULT CONF [RM] Stat 05/12/17 18:24 RT Aerosol Therapy [RC] ASDIRECTED
[2017-05-12 18:29] LABS: CHLORIDE,CL 98 mmol/L (101-111); SODIUM,NA 131 mmol/L (135-145)
[2017-05-12] MEDS ORDERED: methylPREDNISolone Sodium Succinate 40 MG/1 ML SDV IM ONE (18:31)
[2017-05-12] MEDS ORDERED: Levofloxacin 500 MG Tab PO ONE (18:31)
== END 2017-05-12 19:14 | disposition home or self-care (01) ==
LOC: DL.ED 17:46
DX: J44.1 Chronic obstructive pulmonary disease with (acute) exacerbation (principal); I10 Essential (primary) hypertension; Z79.84 Long term (current) use of oral hypoglycemic drugs; E11.40 Type 2 diabetes mellitus with diabetic neuropathy, unspecified; Z88.1 Allergy status to other antibiotic agents; Z88.5 Allergy status to narcotic agent; Z88.0 Allergy status to penicillin; Z79.82 Long term (current) use of aspirin; Z79.899 Other long term (current) drug therapy
CPT/HCPCS: 36415; 71046; 80053; 85025; 87081; 87430; 87804; 94640; 96372; 99284; A9270; J2920; 99283

== ENCOUNTER 2017-06-10 21:00 | Emergency (ER) | payer MEDICARE, OTHER ==
[2017-06-10] MEDS ORDERED: Sodium Chloride 0.9% 10 ML Syringe FLUSH PRN (21:14)
[2017-06-10 21:48] LABS: CHLORIDE,CL 98 mmol/L (101-111); SODIUM,NA 133 mmol/L (135-145)
[2017-06-10 21:59] VITALS: BP 131/60
[2017-06-10] MEDS ORDERED: Azithromycin 250 MG Tab PO ONE (22:03)
--- NOTE | 2017-06-10 22:03 | EDM.PDOC ---
ED HPI GENERAL MEDICAL PROBLEM - General Chief Complaint: Respiratory Problem Stated Complaint: BY AMBULANCE Time Seen by Provider: 06/10/17 21:04 Source of Information: Reports: Patient, EMS, EMS Notes Reviewed, RN, RN Notes Reviewed History Limitations: Reports: No Limitations - History of Present Illness INITIAL COMMENTS - FREE TEXT/NARRATIVE: Pt presents to ER per [facility] with c/o being sick for 1 week, and has worsened over the past 2 days. She states she has DMII and COPD. She states her sister recently and they had her this week. Pt states has had a cough, congestion, fever and chills, and SOB. She denies N/V/D, or Chest pain. Onset: Gradual - Related Data Allergies Allergy/AdvReac Type Severity Reaction Status Date / Time erythromycin base Allergy Unknown Rash Verified 06/10/17 22:02 [Erythromycin Base] ampicillin AdvReac Unknown swelling Verified 06/10/17 22:02 of legs and feet codeine AdvReac Unknown dizzy and Verified 06/10/17 22:02 lightheaded Penicillins AdvReac Unknown swelling Verified 06/10/17 22:02 of legs and feet Home Meds: Home Meds Albuterol [Proventil Neb Soln] 3 ml NEB Q6H PRN 07/23/13 [History] Hydrochlorothiazide 25 mg PO DAILY 07/23/13 [History] Lisinopril 40 mg PO DAILY 07/23/13 [History] Mometasone/Formoterol [Dulera 200 MCG/5 MCG] 2 puff INH BID 07/23/13 [History] Tiotropium [Spiriva Handihaler] 18 mcg INH BID 07/23/13 [History] metFORMIN [Glucophage] 1,000 mg PO DAILY 07/23/13 [History] Aspirin [Halfprin] 81 mg PO BRK 05/11/15 [History] Past Medical History Cardiovascular History: Reports: Hypertension Respiratory History: Reports: Asthma, COPD, SOB Other Gastrointestinal History: Appendicitis 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: Musculoskeletal History: Reports: Arthritis Neurological History: Reports: Head Trauma Psychiatric History: Reports: Anxiety, Depression, Panic Attack Endocrine/Metabolic History: Reports: Diabetes, Type II Hematologic History: Reports: Anemia, Blood Transfusion(s) Immunologic History: Reports: None Oncologic (Cancer) History: Reports: None Dermatologic History: Reports: None - Infectious Disease History Infectious Disease History: Reports: None - Past Surgical History HEENT Surgical History: Reports: Tonsillectomy GI Surgical History: Reports: Appendectomy, Cholecystectomy Musculoskeletal Surgical History: Reports: Arthroscopic Knee Social & Family History - Family History Family Medical History: Noncontributory - Tobacco Use Smoking Status *Q: Never Smoker Years of Tobacco use: 1 Used Tobacco, but Quit: No Month Tobacco Last Used: April Second Hand Smoke Exposure: Yes - Caffeine Use Caffeine Use: Reports: None - Alcohol Use Days Per Week of Alcohol Use: 0 - Recreational Drug Use Recreational Drug Use: No - Living Situation & Occupation Living situation: Reports: with Family Occupation: Retired ED ROS GENERAL - Review of Systems Review Of Systems: ROS reveals no pertinent complaints other than HPI. ED EXAM, GENERAL - Physical Exam Exam: See Below Exam Limited By: No Limitations General Appearance: Alert, WD/WN, Mild Distress Eye Exam: Bilateral Eye: EOMI, Normal Inspection, PERRL Ears: Normal External Exam, Hearing Grossly Normal Nose: Normal Inspection Throat/Mouth: Normal Inspection, Normal Lips, Normal Teeth, Normal Gums, Normal Oropharynx, Normal Voice, No Airway Compromise Head: Atraumatic, Normocephalic Neck: Normal Inspection, Supple, Non-Tender, Full Range of Motion Respiratory/Chest: Decreased Breath Sounds, Crackles, Wheezing Cardiovascular: Normal Peripheral Pulses, Regular Rate, Rhythm, No Edema, No Gallop, No JVD, No Murmur, No Rub Peripheral Pulses: 2+: Radial (L), Radial (R) GI/Abdominal: Normal Bowel Sounds, Soft, Non-Tender, No Distention (Female) Exam: Deferred Rectal (Female) Exam: Deferred Back Exam: Normal Inspection, Full Range of Motion Extremities: Normal Inspection, Normal Range of Motion, Non-Tender, No Pedal Edema, Normal Capillary Refill Neurological: Alert, Oriented, Normal Cognition, No Motor/Sensory Deficits Psychiatric: Normal Affect, Normal Mood, Anxious Skin Exam: Warm, Dry, Intact, Normal Color, No Rash Lymphatic: No Adenopathy Course - Vital Signs Last Recorded V/S: Last Vital Signs Temp 97.4 F 06/10/17 21:20 Pulse 87 06/10/17 21:20 Resp 19 06/10/17 21:20 BP 131/60 06/10/17 21:20 Pulse Ox 98 02/12/18 21:20 - Orders/Labs/Meds Orders: Active Orders 24 hr Category Date Time Status Peripheral IV Care [RC] . DIRECTED Care 06/10/17 21:14 Active CULTURE BLOOD [BC] Stat Lab 06/10/17 21:25 Received CULTURE BLOOD [BC] Stat Lab 06/10/17 21:27 Received UA W/MICROSCOPIC [URIN] Stat Lab 06/10/17 21:45 Received Sodium Chloride 0.9% [Saline Flush] Med 06/10/17 21:14 Active 10 ml FLUSH ASDIRECTED PRN Blood Culture x2 Reflex Set [OM.PC] Stat Oth 06/10/17 21:14 Ordered Peripheral IV Insertion Adult [OM.PC] Stat Oth 06/10/17 21:14 Ordered Medication Orders Sodium Chloride (Saline Flush) 10 ml FLUSH ASDIRECTED PRN PRN Reason: Keep Vein Open Last Admin: 06/10/17 22:14 Dose: 10 ml Labs: Laboratory Tests 06/10/17 06/10/17 06/10/17 Range/Units 21:25 21:25 21:25 WBC 8.1 (5.0-10.0) 10^3/uL RBC 4.42 (4.2-5.4) 10^6/uL Hgb 11.6 L (12.0-16.0) g/dL Hct 35.3 L (37.0-47.0) % MCV 79.9 L (80-100) fL MCH 26.2 L (27.0-34.0) pg MCHC 32.9 L (33.0-35.0) g/dL Plt Count 245 (150-450) 10^3/uL Neut % (Auto) 54.4 (42.2-75.2) % Lymph % (Auto) 32.0 (20.5-50.1) % [place] % (Auto) 11.3 H (2-8) % Eos % (Auto) 2.1 (1.0-3.0) % Baso % (Auto) 0.2 (0.0-1.0) % Sodium 133 L (135-145) mmol/L Potassium 3.2 L (3.6-5.0) mmol/L Chloride 98 L (101-111) mmol/L Carbon Dioxide 27.0 (21.0-31.0) mmol/L Anion Gap 11.2 BUN 9 (7-18) mg/dL Creatinine 0.6 (0.6-1.3) mg/dL Est Cr Clr Drug Dosing TNP Estimated GFR (MDRD) > 60 BUN/Creatinine Ratio 15.00 Glucose 115 H (74-105) mg/dL Lactic Acid 1.2 (0.5-2.2) mmol/L Calcium 8.7 (8.4-10.2) mg/dl Total Bilirubin 1.0 (0.2-1.0) mg/dL AST 31 (10-42) IU/L ALT 17 (10-60) IU/L Alkaline Phosphatase 78 (42-121) IU/L Total Protein 7.3 (6.7-8.2) g/dl Albumin 3.7 (3.2-5.5) g/dl Globulin 3.6 Albumin/Globulin Ratio 1.03 Meds: Medications Generic Name Dose Route Start Last Admin Trade Name Freq PRN Reason Stop Dose Admin Sodium Chloride 10 ml 06/10/17 21:14 06/10/17 22:14 Saline Flush FLUSH 10 ml ASDIRECTED PRN Administration Keep Vein Open Discontinued Medications Generic Name Dose Route Start Last Admin Trade Name Freq PRN Reason Stop Dose Admin Azithromycin 500 mg 06/10/17 22:03 06/10/17 22:13 Zithromax PO 06/10/17 22:04 500 mg ONETIME ONE Administration Methylprednisolone Sodium Succinate 125 mg 06/10/17 22:07 06/10/17 22:14 Solu-Medrol IVPUSH 06/10/17 22:08 125 mg ONETIME ONE Administration - Radiology Interpretation Free Text/Narrative:: Chest xray: Stable mild hyperinflation of the lungs. Calcified left lower lobe granuloma, unchanged. No focal consolidation. No pulmonary edema. See rad report Departure - Departure Time of Disposition: 22:01 Disposition: Home, Self-Care 01 Condition: Fair Clinical Impression: COPD exacerbation - Discharge Information Instructions: Chronic Obstructive Pulmonary Disease Exacerbation, [id number] , Shortness of Breath, [id number], Upper Respiratory Infection, Adult, Easy-to -Read Forms: ED Department Discharge Additional Instructions: RX: Azithromycin, prednisone Tylenol or ibuprofen for pain/fever as directed Continue nebs and inhaler as directed at home. Follow up with your primary care facility this week - My Orders Last 24 Hours: My Active Orders 06/10/17 21:14 Peripheral IV Care [RC] . DIRECTED Sodium Chloride 0.9% [Saline Flush] 10 ml FLUSH ASDIRECTED PRN Blood Culture x2 Reflex Set [OM.PC] Stat Peripheral IV Insertion Adult [OM.PC] Stat 06/10/17 21:25 CULTURE BLOOD [BC] Stat 06/10/17 21:27 CULTURE BLOOD [BC] Stat 06/10/17 21:45 UA W/MICROSCOPIC [URIN] Stat - Assessment/Plan Last 24 Hours: My Active Orders 06/10/17 21:14 Peripheral IV Care [RC] . DIRECTED Sodium Chloride 0.9% [Saline Flush] 10 ml FLUSH ASDIRECTED PRN Blood Culture x2 Reflex Set [OM.PC] Stat Peripheral IV Insertion Adult [OM.PC] Stat 06/10/17 21:25 CULTURE BLOOD [BC] Stat 06/10/17 21:27 CULTURE BLOOD [BC] Stat 06/10/17 21:45 UA W/MICROSCOPIC [URIN] Stat
[2017-06-10] MEDS ORDERED: methylPREDNISolone Sodium Succinate 125 MG/2 ML SDV IVPUSH ONE (22:07)
== END 2017-06-10 22:28 | disposition home or self-care (01) ==
LOC: DL.ED 21:00
DX: J44.1 Chronic obstructive pulmonary disease with (acute) exacerbation (principal); I10 Essential (primary) hypertension; E11.21 Type 2 diabetes mellitus with diabetic nephropathy; Z88.1 Allergy status to other antibiotic agents; Z88.5 Allergy status to narcotic agent; Z88.0 Allergy status to penicillin; Z79.899 Other long term (current) drug therapy
CPT/HCPCS: 36415; 71046; 80053; 81001; 83605; 85025; 87040; 96374; 99284; A9270; J2930; J7050; 99283

== ENCOUNTER 2017-07-04 21:20 | Emergency (ER) | payer MEDICARE, OTHER ==
[2017-07-04] MEDS ORDERED: Sodium Chloride 0.9% 10 ML Syringe FLUSH PRN (21:23)
[2017-07-04 21:28] VITALS: BP 148/63
[2017-07-04 22:01] LABS: ANION GAP 10.3; CHLORIDE,CL 100 mmol/L (101-111); SODIUM,NA 134 mmol/L (135-145)
--- NOTE | 2017-07-04 22:14 | EDM.PDOC ---
ED HPI GENERAL MEDICAL PROBLEM - General Chief Complaint: Cardiovascular Problem Stated Complaint: BY AMBULANCE Time Seen by Provider: 07/04/17 21:22 Source of Information: Reports: Patient, EMS, EMS Notes Reviewed, RN, RN Notes Reviewed History Limitations: Reports: No Limitations - History of Present Illness INITIAL COMMENTS - FREE TEXT/NARRATIVE: Pt presents to the ER per [facility] with c/o swelling in her ankles and shortness of breath. Pt states she noticed the swelling in her ankles last evening. She states she became more SOB today. She states a history of COPD and asthma, and exposure to second hand smoke. Pt states she used a nebulizer this morning, and she was given one in the ambulance and that made her feel better. Pt admits to chills and diarrhea, but denies chest pains, fever, N/V. Onset: Gradual Onset Date: 07/03/17 - Related Data Allergies Allergy/AdvReac Type Severity Reaction Status Date / Time erythromycin base Allergy Unknown Rash Verified 06/10/17 22:02 [Erythromycin Base] ampicillin AdvReac Unknown swelling Verified 06/10/17 22:02 of legs and feet codeine AdvReac Unknown dizzy and Verified 06/10/17 22:02 lightheaded Penicillins AdvReac Unknown swelling Verified 06/10/17 22:02 of legs and feet Home Meds: Home Meds Albuterol [Proventil Neb Soln] 3 ml NEB Q6H PRN 07/23/13 [History] Hydrochlorothiazide 25 mg PO DAILY 07/23/13 [History] Lisinopril 40 mg PO DAILY 07/23/13 [History] Mometasone/Formoterol [Dulera 200 MCG/5 MCG] 2 puff INH BID 07/23/13 [History] Tiotropium [Spiriva Handihaler] 18 mcg INH BID 07/23/13 [History] metFORMIN [Glucophage] 1,000 mg PO DAILY 07/23/13 [History] Aspirin [Halfprin] 81 mg PO BRK 05/11/15 [History] Past Medical History Cardiovascular History: Reports: Hypertension Respiratory History: Reports: Asthma, COPD, SOB Other Gastrointestinal History: Appendicitis 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: Musculoskeletal History: Reports: Arthritis Neurological History: Reports: Head Trauma Psychiatric History: Reports: Anxiety, Depression, Panic Attack Endocrine/Metabolic History: Reports: Diabetes, Type II Hematologic History: Reports: Anemia, Blood Transfusion(s) Immunologic History: Reports: None Oncologic (Cancer) History: Reports: None Dermatologic History: Reports: None - Infectious Disease History Infectious Disease History: Reports: None - Past Surgical History HEENT Surgical History: Reports: Tonsillectomy GI Surgical History: Reports: Appendectomy, Cholecystectomy Musculoskeletal Surgical History: Reports: Arthroscopic Knee Social & Family History - Family History Family Medical History: Noncontributory - Tobacco Use Smoking Status *Q: Unknown Ever Smoked Years of Tobacco use: 1 Used Tobacco, but Quit: No Month Tobacco Last Used: April Second Hand Smoke Exposure: Yes - Caffeine Use Caffeine Use: Reports: Coffee, Soda, Tea - Alcohol Use Days Per Week of Alcohol Use: 0 - Recreational Drug Use Recreational Drug Use: No - Living Situation & Occupation Living situation: Reports: with Family Occupation: Retired ED ROS GENERAL - Review of Systems Review Of Systems: ROS reveals no pertinent complaints other than HPI. ED EXAM, GENERAL - Physical Exam Exam: See Below Exam Limited By: No Limitations General Appearance: Alert, WD/WN, No Apparent Distress Eye Exam: Bilateral Eye: EOMI, Normal Inspection, PERRL Ears: Normal External Exam, Hearing Grossly Normal Nose: Normal Inspection Throat/Mouth: Normal Inspection, Normal Lips, Normal Teeth, Normal Gums, Normal Oropharynx, Normal Voice, No Airway Compromise Head: Atraumatic, Normocephalic Neck: Normal Inspection, Supple, Non-Tender, Full Range of Motion Respiratory/Chest: No Respiratory Distress, No Accessory Muscle Use, Chest Non- Tender, Decreased Breath Sounds, Rales (right base) Cardiovascular: Normal Peripheral Pulses, Regular Rate, Rhythm, No Gallop, No JVD, No Murmur, No Rub. No: No Edema (pedal/ankle edema bilaterally) Peripheral Pulses: 2+: Radial (L), Radial (R), Dorsalis Pedis (L), Dorsalis Pedis (R) GI/Abdominal: Normal Bowel Sounds, Soft, Non-Tender, No Organomegaly, No Distention, No Abnormal Bruit, No Mass (Female) Exam: Deferred Rectal (Female) Exam: Deferred Back Exam: Normal Inspection, Full Range of Motion, NT Extremities: Normal Inspection, Normal Range of Motion, Non-Tender, Normal Capillary Refill, No Pedal Edema Neurological: Alert, Oriented, CN II-XII Intact, Normal Cognition, Normal Gait, Normal Reflexes, No Motor/Sensory Deficits Psychiatric: Normal Affect, Normal Mood Skin Exam: Warm, Dry, Intact, Normal Color, No Rash Lymphatic: No Adenopathy EKG INTERPRETATION EKG Date: 07/04/17 Time: 21:20 Rhythm: NSR Rate (Beats/Min): 88 Comparison: No Change EKG Interpretation Comments: RBBB Course - Vital Signs Last Recorded V/S: Last Vital Signs Temp 98.8 F 07/04/17 21:27 Pulse 87 07/04/17 21:27 Resp 14 07/04/17 21:27 BP 148/63 H 07/04/17 21:27 Pulse Ox 97 07/04/17 21:27 - Orders/Labs/Meds Orders: Active Orders 24 hr Category Date Time Status EKG Documentation Completion [RC] STAT Care 07/04/17 21:23 Active Peripheral IV Care [RC] . DIRECTED Care 07/04/17 21:24 Active Peripheral IV Insertion Adult [OM.PC] Stat Oth 07/04/17 21:23 Ordered Labs: Laboratory Tests 07/04/17 07/04/17 07/04/17 Range/Units 21:35 21:35 22:00 WBC 7.3 (5.0-10.0) 10^3/uL RBC 4.38 (4.2-5.4) 10^6/uL Hgb 11.4 L (12.0-16.0) g/dL Hct 34.5 L (37.0-47.0) % MCV 78.8 L (80-100) fL MCH 26.0 L (27.0-34.0) pg MCHC 33.0 (33.0-35.0) g/dL Plt Count 248 (150-450) 10^3/uL Neut % (Auto) 56.5 (42.2-75.2) % Lymph % (Auto) 29.5 (20.5-50.1) % [place] % (Auto) 10.1 H (2-8) % Eos % (Auto) 3.5 H (1.0-3.0) % Baso % (Auto) 0.4 (0.0-1.0) % Sodium 134 L (135-145) mmol/L Potassium 3.3 L (3.6-5.0) mmol/L Chloride 100 L (101-111) mmol/L Carbon Dioxide 27.0 (21.0-31.0) mmol/L Anion Gap 10.3 BUN 14 (7-18) mg/dL Creatinine 0.7 (0.6-1.3) mg/dL Est Cr Clr Drug Dosing 55.68 mL/min Estimated GFR (MDRD) > 60 BUN/Creatinine Ratio 20.00 Glucose 120 H (74-105) mg/dL Calcium 8.6 (8.4-10.2) mg/dl Total Bilirubin 0.7 (0.2-1.0) mg/dL AST 31 (10-42) IU/L ALT 18 (10-60) IU/L Alkaline Phosphatase 79 (42-121) IU/L Troponin I 0.02 (0.00-0.02) ng/ml B-Natriuretic Peptide 14 (0-100) pg/ml Total Protein 7.2 (6.7-8.2) g/dl Albumin 3.6 (3.2-5.5) g/dl Globulin 3.6 Albumin/Globulin Ratio 1.00 Urine Color Yellow (YELLOW) Urine Appearance Slightly cloudy (CLEAR) Urine pH 7.0 (5.0-9.0) Ur Specific [place] 1.015 (1.005-1.030) Urine Protein Negative (NEGATIVE) Urine Glucose (UA) Negative (NEGATIVE) Urine Ketones Negative (NEGATIVE) Urine Occult Blood Negative (NEGATIVE) Urine Nitrite Negative (NEGATIVE) Urine Bilirubin Negative (NEGATIVE) Urine Urobilinogen 1.0 (0.2-1.0) mg/dL Ur Leukocyte Esterase Small H (NEGATIVE) Urine RBC 0-5 /HPF Urine WBC 0-5 (0-5/HPF) /HPF Ur Epithelial Cells Moderate H /HPF Urine Bacteria Moderate H (0-FEW/HPF) /HPF Influenza A and B: Negative Meds: Medications Discontinued Medications Generic Name Dose Route Start Last Admin Trade Name Freq PRN Reason Stop Dose Admin Sodium Chloride 10 ml 07/04/17 21:23 Saline Flush FLUSH ASDIRECTED PRN Keep Vein Open - Radiology Interpretation Free Text/Narrative:: Chest xray: No acute findings See rad report Departure - Departure Time of Disposition: 22:37 Disposition: Home, Self-Care 01 Condition: Fair Clinical Impression: SOB (shortness of breath) URI (upper respiratory infection) Qualifiers: URI type: unspecified viral URI Qualified Code(s): J06.9 - Acute upper respiratory infection, unspecified Instructions: Shortness of Breath, Adult, [id number], Upper Respiratory Infection, Adult, [id number] Forms: ED Department Discharge Additional Instructions: Use your nebulizers as directed Follow up with your primary care facility - My Orders Last 24 Hours: My Active Orders 07/04/17 21:23 EKG Documentation Completion [RC] STAT Peripheral IV Insertion Adult [OM.PC] Stat 07/04/17 21:24 Peripheral IV Care [RC] . DIRECTED - Assessment/Plan Last 24 Hours: My Active Orders 07/04/17 21:23 EKG Documentation Completion [RC] STAT Peripheral IV Insertion Adult [OM.PC] Stat 07/04/17 21:24 Peripheral IV Care [RC] . DIRECTED
--- NOTE | 2017-07-08 14:06 | EKG ---
07/04/2017- NETTE ROBLERO - FINDINGS: EKG, per my reading, shows sinus rhythm with a right bundle-branch block. [facility] /[id number]
== END 2017-07-04 22:58 | disposition home or self-care (01) ==
LOC: DL.ED 21:20
DX: J06.9 Acute upper respiratory infection, unspecified (principal); R06.02 Shortness of breath; I10 Essential (primary) hypertension; E11.21 Type 2 diabetes mellitus with diabetic nephropathy; Z88.1 Allergy status to other antibiotic agents; Z88.5 Allergy status to narcotic agent; Z88.0 Allergy status to penicillin; Z79.899 Other long term (current) drug therapy; Z79.84 Long term (current) use of oral hypoglycemic drugs
CPT/HCPCS: 36415; 71046; 80053; 81001; 83880; 84484; 85025; 87804; 93005; 93010; 99284; 99285

== ENCOUNTER 2017-08-07 21:23 | Emergency (ER) | payer MEDICARE, OTHER ==
--- NOTE | 2017-08-07 21:54 | EDM.PDOC ---
ED HPI GENERAL MEDICAL PROBLEM - General Chief Complaint: Abdominal Pain Stated Complaint: [id number] extreme pain in stomach Time Seen by Provider: 08/07/17 21:40 Source of Information: Reports: Patient, RN, RN Notes Reviewed History Limitations: Reports: No Limitations - History of Present Illness INITIAL COMMENTS - FREE TEXT/NARRATIVE: Pt presents to the ER with c/o RLQ pain for the past few weeks. Pt states the pain has worsened tonight after trying to get out of her recliner. Patient states she has normal bowel movements daily, with small amounts of bright red blood at times. She states she has diarrhea on and off at times. Pt admits to fever and chills, N/V/D, but denies chest pain. She states SOB and cough at times as she has a hx of COPD. Pt states she has had her gallbladder removed and was told that her appendix was removed at that time as well. Onset: Gradual Duration: Waxing/Waning Location: Reports: Abdomen (RLQ) Quality: Reports: Sharp, Stabbing Severity: Moderate Improves with: Reports: None Worsens with: Reports: None Associated Symptoms: Reports: Fever/Chills, Nausea/Vomiting, Weakness - Related Data Allergies Allergy/AdvReac Type Severity Reaction Status Date / Time erythromycin base Allergy Unknown Rash Verified 06/10/17 22:02 [Erythromycin Base] ampicillin AdvReac Unknown swelling Verified 06/10/17 22:02 of legs and feet codeine AdvReac Unknown dizzy and Verified 06/10/17 22:02 lightheaded Penicillins AdvReac Unknown swelling Verified 06/10/17 22:02 of legs and feet Home Meds: Home Meds Albuterol [Proventil Neb Soln] 3 ml NEB Q6H PRN 07/23/13 [History] Hydrochlorothiazide 25 mg PO DAILY 07/23/13 [History] Lisinopril 40 mg PO DAILY 07/23/13 [History] Mometasone/Formoterol [Dulera 200 MCG/5 MCG] 2 puff INH BID 07/23/13 [History] Tiotropium [Spiriva Handihaler] 18 mcg INH BID 07/23/13 [History] metFORMIN [Glucophage] 1,000 mg PO DAILY 07/23/13 [History] Aspirin [Halfprin] 81 mg PO BRK 05/11/15 [History] traZODone HCl [Trazodone HCl] 50 mg PO DAILY 08/07/17 [History] Past Medical History Cardiovascular History: Reports: Hypertension Respiratory History: Reports: Asthma, COPD, SOB Other Gastrointestinal History: Appendicitis 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: Musculoskeletal History: Reports: Arthritis Neurological History: Reports: Head Trauma Psychiatric History: Reports: Anxiety, Depression, Panic Attack Endocrine/Metabolic History: Reports: Diabetes, Type II Hematologic History: Reports: Anemia, Blood Transfusion(s) Immunologic History: Reports: None Oncologic (Cancer) History: Reports: None Dermatologic History: Reports: None - Infectious Disease History Infectious Disease History: Reports: None - Past Surgical History HEENT Surgical History: Reports: Tonsillectomy GI Surgical History: Reports: Appendectomy, Cholecystectomy Musculoskeletal Surgical History: Reports: Arthroscopic Knee Social & Family History - Family History Family Medical History: Noncontributory - Tobacco Use Smoking Status *Q: Unknown Ever Smoked Years of Tobacco use: 1 Used Tobacco, but Quit: No Month/Year Tobacco Last Used: April Second Hand Smoke Exposure: Yes - Caffeine Use Caffeine Use: Reports: Coffee, Soda, Tea - Alcohol Use Days Per Week of Alcohol Use: 0 - Recreational Drug Use Recreational Drug Use: No - Living Situation & Occupation Living situation: Reports: with Family Occupation: Retired ED ROS GENERAL - Review of Systems Review Of Systems: ROS reveals no pertinent complaints other than HPI. ED EXAM, GI/ABD - Physical Exam Exam: See Below Exam Limited By: No Limitations General Appearance: Alert, WD/WN, No Apparent Distress Eyes: Bilateral: Normal Appearance, EOMI Ears: Normal External Exam, Hearing Grossly Normal Nose: Normal Inspection Throat/Mouth: Normal Inspection, Normal Voice, No Airway Compromise Head: Atraumatic, Normocephalic Neck: Normal Inspection, Supple, Non-Tender, Full Range of Motion Respiratory/Chest: No Respiratory Distress, No Accessory Muscle Use, Chest Non- Tender, Decreased Breath Sounds, Wheezing (Exp, right side) Cardiovascular: Normal Peripheral Pulses, Regular Rate, Rhythm, No Gallop, No JVD, No Murmur, No Rub. No: No Edema (+1 pedal/ankle edema) GI/Abdominal Exam: Normal Bowel Sounds, Soft, No Organomegaly, No Distention, Guarding, Tender (RLQ, RUQ, LLQ) (Female) Exam: Deferred Rectal (Female) Exam: Deferred Back Exam: Normal Inspection, Full Range of Motion Extremities: Normal Capillary Refill, Limited Range of Motion Neurological: Alert, Oriented, CN II-XII Intact, Normal Cognition, Normal Gait, Normal Reflexes, No Motor/Sensory Deficits Psychiatric: Depressed Mood Skin Exam: Warm, Dry, Intact, Normal Color, No Rash Lymphatic: No Adenopathy Course - Vital Signs Last Recorded V/S: Last Vital Signs Temp 99.2 F 08/07/17 21:30 Pulse 80 08/07/17 23:00 Resp 20 08/07/17 23:00 BP 143/68 H 08/07/17 23:00 Pulse Ox 95 08/07/17 23:00 - Orders/Labs/Meds Orders: Active Orders 24 hr Category Date Time Status UA W/MICROSCOPIC [URIN] Stat Lab 08/07/17 22:32 Ordered Labs: Laboratory Tests 08/07/17 08/07/17 08/07/17 Range/Units 21:56 21:56 21:56 WBC 6.7 (5.0-10.0) 10^3/uL RBC 4.35 (4.2-5.4) 10^6/uL Hgb 11.2 L (12.0-16.0) g/dL Hct 34.4 L (37.0-47.0) % MCV 79.1 L (80-100) fL MCH 25.7 L (27.0-34.0) pg MCHC 32.6 L (33.0-35.0) g/dL Plt Count 259 (150-450) 10^3/uL Neut % (Auto) 61.4 (42.2-75.2) % Lymph % (Auto) 20.8 (20.5-50.1) % [place] % (Auto) 13.1 H (2-8) % Eos % (Auto) 4.5 H (1.0-3.0) % Baso % (Auto) 0.2 (0.0-1.0) % Sodium 130 L (135-145) mmol/L Potassium 3.7 (3.6-5.0) mmol/L Chloride 96 L (101-111) mmol/L Carbon Dioxide 27.0 (21.0-31.0) mmol/L Anion Gap 10.7 BUN 14 (7-18) mg/dL Creatinine 0.7 (0.6-1.3) mg/dL Est Cr Clr Drug Dosing 55.68 mL/min Estimated GFR (MDRD) > 60 BUN/Creatinine Ratio 20.00 Glucose 109 H (74-105) mg/dL Lactic Acid 0.7 (0.5-2.2) mmol/L Calcium 8.8 (8.4-10.2) mg/dl Total Bilirubin 1.1 H (0.2-1.0) mg/dL AST 28 (10-42) IU/L ALT 18 (10-60) IU/L Alkaline Phosphatase 84 (42-121) IU/L Total Protein 7.5 (6.7-8.2) g/dl Albumin 3.7 (3.2-5.5) g/dl Globulin 3.8 Albumin/Globulin Ratio 0.97 Lipase 31 (22-51) U/L Urine Color (YELLOW) Urine Appearance (CLEAR) Urine pH (5.0-9.0) Ur Specific [place] (1.005-1.030) Urine Protein (NEGATIVE) Urine Glucose (UA) (NEGATIVE) Urine Ketones (NEGATIVE) Urine Occult Blood (NEGATIVE) Urine Nitrite (NEGATIVE) Urine Bilirubin (NEGATIVE) Urine Urobilinogen (0.2-1.0) mg/dL Ur Leukocyte Esterase (NEGATIVE) Urine RBC /HPF Urine WBC (0-5/HPF) /HPF Ur Epithelial Cells /HPF Amorphous Sediment (0/HPF) /HPF Urine Bacteria (0-FEW/HPF) /HPF 08/07/17 Range/Units 22:32 WBC (5.0-10.0) 10^3/uL RBC (4.2-5.4) 10^6/uL Hgb (12.0-16.0) g/dL Hct (37.0-47.0) % MCV (80-100) fL MCH (27.0-34.0) pg MCHC (33.0-35.0) g/dL Plt Count (150-450) 10^3/uL Neut % (Auto) (42.2-75.2) % Lymph % (Auto) (20.5-50.1) % [place] % (Auto) (2-8) % Eos % (Auto) (1.0-3.0) % Baso % (Auto) (0.0-1.0) % Sodium (135-145) mmol/L Potassium (3.6-5.0) mmol/L Chloride (101-111) mmol/L Carbon Dioxide (21.0-31.0) mmol/L Anion Gap BUN (7-18) mg/dL Creatinine (0.6-1.3) mg/dL Est Cr Clr Drug Dosing mL/min Estimated GFR (MDRD) BUN/Creatinine Ratio Glucose (74-105) mg/dL Lactic Acid (0.5-2.2) mmol/L Calcium (8.4-10.2) mg/dl Total Bilirubin (0.2-1.0) mg/dL AST (10-42) IU/L ALT (10-60) IU/L Alkaline Phosphatase (42-121) IU/L Total Protein (6.7-8.2) g/dl Albumin (3.2-5.5) g/dl Globulin Albumin/Globulin Ratio Lipase (22-51) U/L Urine Color Yellow (YELLOW) Urine Appearance Slightly cloudy (CLEAR) Urine pH 7.0 (5.0-9.0) Ur Specific [place] 1.015 (1.005-1.030) Urine Protein Negative (NEGATIVE) Urine Glucose (UA) Negative (NEGATIVE) Urine Ketones Negative (NEGATIVE) Urine Occult Blood Negative (NEGATIVE) Urine Nitrite Negative (NEGATIVE) Urine Bilirubin Negative (NEGATIVE) Urine Urobilinogen 1.0 (0.2-1.0) mg/dL Ur Leukocyte Esterase Moderate H (NEGATIVE) Urine RBC 0-5 /HPF Urine WBC 5-10 H (0-5/HPF) /HPF Ur Epithelial Cells Few /HPF Amorphous Sediment Rare (0/HPF) /HPF Urine Bacteria Few (0-FEW/HPF) /HPF Meds: Medications Discontinued Medications Generic Name Dose Route Start Last Admin Trade Name Freq PRN Reason Stop Dose Admin Iopamidol 75 ml 08/07/17 23:28 08/07/17 23:29 Isovue-300 (61%) IVPUSH 08/07/17 23:29 75 ml ONETIME ONE Administration - Radiology Interpretation Free Text/Narrative:: CT Abdomen/Pelvis: No acute findings See rad report Departure - Departure Time of Disposition: 00:04 Disposition: Home, Self-Care 01 Condition: Fair Clinical Impression: Abdominal pain Qualifiers: Abdominal location: right lower quadrant Qualified Code(s): R10.31 - Right lower quadrant pain - Discharge Information Instructions: Abdominal Pain, Adult, [id number] Forms: ED Department Discharge Additional Instructions: Follow up with your primary care facility - My Orders Last 24 Hours: My Active Orders 08/07/17 22:32 UA W/MICROSCOPIC [URIN] Stat - Assessment/Plan Last 24 Hours: My Active Orders 08/07/17 22:32 UA W/MICROSCOPIC [URIN] Stat
[2017-08-07 22:25] LABS: CHLORIDE,CL 96 mmol/L (101-111); SODIUM,NA 130 mmol/L (135-145)
[2017-08-07] MEDS ORDERED: Iopamidol 612 MG/ML 75 ML Bottle IVPUSH ONE (23:28)
[2017-08-08 00:28] VITALS: BP 132/66
== END 2017-08-08 00:14 | disposition home or self-care (01) ==
LOC: DL.ED 21:23
DX: R10.31 Right lower quadrant pain (principal); E11.21 Type 2 diabetes mellitus with diabetic nephropathy; J44.9 Chronic obstructive pulmonary disease, unspecified; Z88.1 Allergy status to other antibiotic agents; Z88.0 Allergy status to penicillin; Z88.5 Allergy status to narcotic agent; Z79.84 Long term (current) use of oral hypoglycemic drugs; Z79.899 Other long term (current) drug therapy
CPT/HCPCS: 36415; 74177; 80053; 81001; 83605; 83690; 85025; 99284; Q9967

== ENCOUNTER 2017-08-27 19:51 | Emergency (ER) | payer MEDICARE, OTHER ==
--- NOTE | 2017-08-27 20:27 | EDM.PDOC ---
ED HPI GENERAL MEDICAL PROBLEM - General Chief Complaint: Cardiovascular Problem Stated Complaint: [id number] lightheaded and vomitting Time Seen by Provider: 08/27/17 20:00 Source of Information: Reports: Patient History Limitations: Reports: No Limitations - History of Present Illness INITIAL COMMENTS - FREE TEXT/NARRATIVE: This 77 yo female patient reports to the ED with a 3 week history of dizziness and nausea/vomiting x1 today. The patient reports she was seen in the Clinic last week for these symptoms and was given "an extra pill". The patient reports that she does not have another follow-up until September 17. The patient reports her symptoms have not gotten any worse today, but she "just wants to feel better." The patient denies any pain or other problems today. Onset: Gradual Duration: Week(s): Location: Reports: Generalized Quality: Reports: Other Severity: Moderate Improves with: Reports: None Worsens with: Reports: None Context: Reports: Other Associated Symptoms: Reports: No Other Symptoms Headache Pain Score (Numeric/FACES): 3 - Related Data Allergies Allergy/AdvReac Type Severity Reaction Status Date / Time erythromycin base Allergy Unknown Rash Verified 08/27/17 20:00 [Erythromycin Base] ampicillin AdvReac Unknown swelling Verified 08/27/17 20:00 of legs and feet codeine AdvReac Unknown dizzy and Verified 08/27/17 20:00 lightheaded Penicillins AdvReac Unknown swelling Verified 08/27/17 20:00 of legs and feet Home Meds: Home Meds Albuterol [Proventil Neb Soln] 3 ml NEB Q6H PRN 07/23/13 [History] Hydrochlorothiazide 25 mg PO DAILY 07/23/13 [History] Lisinopril 40 mg PO DAILY 07/23/13 [History] Mometasone/Formoterol [Dulera 200 MCG/5 MCG] 2 puff INH BID 07/23/13 [History] Tiotropium [Spiriva Handihaler] 18 mcg INH BID 07/23/13 [History] metFORMIN [Glucophage] 1,000 mg PO DAILY 07/23/13 [History] Aspirin [Halfprin] 81 mg PO BRK 05/11/15 [History] traZODone HCl [Trazodone HCl] 50 mg PO DAILY 08/07/17 [History] Sertraline [Zoloft] 100 mg PO DAILY 08/27/17 [History] Past Medical History Cardiovascular History: Reports: Hypertension Respiratory History: Reports: Asthma, COPD, SOB Other Gastrointestinal History: Appendicitis 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: Musculoskeletal History: Reports: Arthritis Neurological History: Reports: Head Trauma Psychiatric History: Reports: Anxiety, Depression, Panic Attack Endocrine/Metabolic History: Reports: Diabetes, Type II Hematologic History: Reports: Anemia, Blood Transfusion(s) Immunologic History: Reports: None Oncologic (Cancer) History: Reports: None Dermatologic History: Reports: None - Infectious Disease History Infectious Disease History: Reports: Measles - Past Surgical History HEENT Surgical History: Reports: Tonsillectomy GI Surgical History: Reports: Appendectomy, Cholecystectomy Musculoskeletal Surgical History: Reports: Arthroscopic Knee Social & Family History - Family History Family Medical History: Noncontributory - Tobacco Use Smoking Status *Q: Never Smoker Years of Tobacco use: 1 Used Tobacco, but Quit: No Month/Year Tobacco Last Used: April Second Hand Smoke Exposure: Yes - Caffeine Use Caffeine Use: Reports: Coffee, Soda, Tea - Alcohol Use Days Per Week of Alcohol Use: 0 - Recreational Drug Use Recreational Drug Use: No - Living Situation & Occupation Living situation: Reports: with Family Occupation: Retired ED ROS GENERAL - Review of Systems Review Of Systems: ROS reveals no pertinent complaints other than HPI. ED EXAM, GENERAL - Physical Exam Exam: See Below Exam Limited By: No Limitations General Appearance: Alert, WD/WN, Moderate Distress Eye Exam: Bilateral Eye: EOMI, Normal Inspection, PERRL Ears: Normal External Exam, Normal Canal, Hearing Grossly Normal, Normal TMs Nose: Normal Inspection, Normal Mucosa, No Blood Throat/Mouth: Normal Inspection, Normal Lips, Normal Teeth, Normal Gums, Normal Oropharynx, Normal Voice, No Airway Compromise Head: Atraumatic, Normocephalic Neck: Normal Inspection, Supple, Non-Tender, Full Range of Motion Respiratory/Chest: No Respiratory Distress, Lungs Clear, Normal Breath Sounds, No Accessory Muscle Use, Chest Non-Tender Cardiovascular: Normal Peripheral Pulses, Regular Rate, Rhythm, No Edema, No Gallop, No JVD, No Murmur, No Rub GI/Abdominal: Normal Bowel Sounds, Soft, Non-Tender, No Organomegaly, No Distention, No Abnormal Bruit, No Mass (Female) Exam: Deferred Rectal (Female) Exam: Deferred Back Exam: Normal Inspection, Full Range of Motion, NT Extremities: Normal Inspection, Normal Range of Motion, Non-Tender, Normal Capillary Refill, No Pedal Edema Neurological: Alert, Oriented, CN II-XII Intact, Normal Cognition, Normal Gait, Normal Reflexes, No Motor/Sensory Deficits Psychiatric: Normal Affect, Normal Mood Skin Exam: Warm, Dry, Intact, Normal Color, No Rash Lymphatic: No Adenopathy Course - Vital Signs Last Recorded V/S: Last Vital Signs Temp 36.8 C 08/27/17 19:55 Pulse 78 08/27/17 19:55 Resp 18 08/27/17 19:55 BP 166/79 H 08/27/17 19:55 Pulse Ox 97 08/27/17 19:55 - Orders/Labs/Meds Orders: Active Orders 24 hr Category Date Time Status EKG Documentation Completion [RC] URGENT Care 08/27/17 20:08 Active UA W/MICROSCOPIC [URIN] Stat Lab 08/27/17 21:15 Ordered Labs: Laboratory Tests 08/27/17 08/27/17 08/27/17 Range/Units 20:28 20:28 21:15 WBC 6.1 (5.0-10.0) 10^3/uL RBC 4.25 (4.2-5.4) 10^6/uL Hgb 10.9 L (12.0-16.0) g/dL Hct 33.7 L (37.0-47.0) % MCV 79.3 L (80-100) fL MCH 25.6 L (27.0-34.0) pg MCHC 32.3 L (33.0-35.0) g/dL Plt Count 242 (150-450) 10^3/uL Neut % (Auto) 60.2 (42.2-75.2) % Lymph % (Auto) 26.0 (20.5-50.1) % [place] % (Auto) 12.4 H (2-8) % Eos % (Auto) 1.1 (1.0-3.0) % Baso % (Auto) 0.3 (0.0-1.0) % Sodium 134 L (135-145) mmol/L Potassium 3.4 L (3.6-5.0) mmol/L Chloride 102 (101-111) mmol/L Carbon Dioxide 25.0 (21.0-31.0) mmol/L Anion Gap 10.4 BUN 14 (7-18) mg/dL Creatinine 0.7 (0.6-1.3) mg/dL Est Cr Clr Drug Dosing 55.68 mL/min Estimated GFR (MDRD) > 60 BUN/Creatinine Ratio 20.00 Glucose 141 H (74-105) mg/dL Calcium 8.7 (8.4-10.2) mg/dl Total Bilirubin 1.1 H (0.2-1.0) mg/dL AST 29 (10-42) IU/L ALT 16 (10-60) IU/L Alkaline Phosphatase 86 (42-121) IU/L Troponin I < 0.02 (0.00-0.02) ng/ml Total Protein 7.2 (6.7-8.2) g/dl Albumin 3.7 (3.2-5.5) g/dl Globulin 3.5 Albumin/Globulin Ratio 1.06 Urine Color Yellow (YELLOW) Urine Appearance Slightly cloudy (CLEAR) Urine pH 6.5 (5.0-9.0) Ur Specific [place] 1.015 (1.005-1.030) Urine Protein Negative (NEGATIVE) Urine Glucose (UA) Negative (NEGATIVE) Urine Ketones Negative (NEGATIVE) Urine Occult Blood Negative (NEGATIVE) Urine Nitrite Negative (NEGATIVE) Urine Bilirubin Negative (NEGATIVE) Urine Urobilinogen >=8.0 H (0.2-1.0) mg/dL Ur Leukocyte Esterase Small H (NEGATIVE) Urine RBC 0-5 /HPF Urine WBC 20-30 H (0-5/HPF) /HPF Ur Epithelial Cells Few /HPF Calcium Oxalate Crystal Moderate H /HPF Amorphous Sediment Few (0/HPF) /HPF Urine Bacteria Few (0-FEW/HPF) /HPF Meds: Medications Discontinued Medications Generic Name Dose Route Start Last Admin Trade Name Freq PRN Reason Stop Dose Admin Nitrofurantoin Macrocrystals 100 mg 08/27/17 21:54 Macrobid PO 08/27/17 21:55 ONETIME ONE Departure - Departure Time of Disposition: 21:56 Disposition: Home, Self-Care 01 Condition: Fair Clinical Impression: UTI (urinary tract infection), uncomplicated Referrals: Luanne Jasmine NP [Primary Care Provider] - Forms: ED Department Discharge Care Plan Goals: The patient was advised of the examination, lab and EKG results during the visit. The patient was given an oral dose of Macrobid during the visit. The patient was discharged with a script for Macrobid (100 mg) to take 1 by mouth 2 times per day for 10 days. If the patient has any additional symptoms or concerns, the patient should follow-up with her primary care facility or return to the emergency department. - My Orders Last 24 Hours: My Active Orders 08/27/17 20:08 EKG Documentation Completion [RC] URGENT 08/27/17 21:15 UA W/MICROSCOPIC [URIN] Stat - Assessment/Plan Last 24 Hours: My Active Orders 08/27/17 20:08 EKG Documentation Completion [RC] URGENT 08/27/17 21:15 UA W/MICROSCOPIC [URIN] Stat
[2017-08-27 21:03] LABS: CHLORIDE,CL 102 mmol/L (101-111); SODIUM,NA 134 mmol/L (135-145)
[2017-08-27] MEDS ORDERED: Nitrofurantoin Monohydrate/Macrocrystalline 100 MG Cap PO ONE (21:54)
[2017-08-27 22:04] VITALS: BP 169/85
--- NOTE | 2017-08-28 14:28 | EKG ---
08/27/2017 - NETTE ROBLERO - TIME: 8:14 p.m. FINDINGS: Sinus rhythm. Right bundle branch block. [facility] /[id number]
== END 2017-08-27 22:06 | disposition home or self-care (01) ==
LOC: DL.ED 19:51
DX: N39.0 Urinary tract infection, site not specified (principal); I10 Essential (primary) hypertension; E11.21 Type 2 diabetes mellitus with diabetic nephropathy; Z88.1 Allergy status to other antibiotic agents; Z88.5 Allergy status to narcotic agent; Z88.0 Allergy status to penicillin; Z79.899 Other long term (current) drug therapy; Z79.84 Long term (current) use of oral hypoglycemic drugs; Z79.82 Long term (current) use of aspirin
CPT/HCPCS: 36415; 80053; 81001; 84484; 85025; 93005; 93010; 99284; A9270

== ENCOUNTER 2017-10-10 19:42 | Emergency (ER) | payer MEDICARE, OTHER ==
[2017-10-10 19:56] VITALS: BP 167/86
--- NOTE | 2017-10-10 19:59 | EDM.PDOC ---
ED HPI GENERAL MEDICAL PROBLEM - General Chief Complaint: Cardiovascular Problem Stated Complaint: [id number] DIZZY LIGHT HEADED Time Seen by Provider: 10/10/17 19:56 Source of Information: Reports: Patient History Limitations: Reports: No Limitations - History of Present Illness INITIAL COMMENTS - FREE TEXT/NARRATIVE: states been light headed & dizzy all winter got worse recently since spouse got pneumonia and ended up on life support and got transferred to [place]. thinks she is stressed. denies CP, only has dizziness on-off. also hadn't been able to sleep. Treatments ALTERATIONS EXPERT: Reports: Other (see below) Other Treatments ALTERATIONS EXPERT: none - Related Data Allergies Allergy/AdvReac Type Severity Reaction Status Date / Time erythromycin base Allergy Unknown Rash Verified 10/10/17 19:55 [Erythromycin Base] ampicillin AdvReac Unknown swelling Verified 10/10/17 19:55 of legs and feet codeine AdvReac Unknown dizzy and Verified 10/10/17 19:55 lightheaded Penicillins AdvReac Unknown swelling Verified 10/10/17 19:55 of legs and feet Home Meds: Home Meds Albuterol [Proventil Neb Soln] 3 ml NEB Q6H PRN 07/23/13 [History] Hydrochlorothiazide 25 mg PO DAILY 07/23/13 [History] Lisinopril 40 mg PO DAILY 07/23/13 [History] Mometasone/Formoterol [Dulera 200 MCG/5 MCG] 2 puff INH BID 07/23/13 [History] Tiotropium [Spiriva Handihaler] 18 mcg INH BID 07/23/13 [History] metFORMIN [Glucophage] 1,000 mg PO DAILY 07/23/13 [History] Aspirin [Halfprin] 81 mg PO BRK 05/11/15 [History] traZODone HCl [Trazodone HCl] 50 mg PO DAILY 08/07/17 [History] Sertraline [Zoloft] 100 mg PO DAILY 08/27/17 [History] Antibiotic 2 tab PO TID 10/10/17 [History] Past Medical History Cardiovascular History: Reports: Hypertension Respiratory History: Reports: Asthma, COPD, SOB Other Gastrointestinal History: Appendicitis 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: Musculoskeletal History: Reports: Arthritis Neurological History: Reports: Head Trauma Psychiatric History: Reports: Anxiety, Depression, Panic Attack Endocrine/Metabolic History: Reports: Diabetes, Type II Hematologic History: Reports: Anemia, Blood Transfusion(s) Immunologic History: Reports: None Oncologic (Cancer) History: Reports: None Dermatologic History: Reports: None - Infectious Disease History Infectious Disease History: Reports: Measles - Past Surgical History HEENT Surgical History: Reports: Tonsillectomy GI Surgical History: Reports: Appendectomy, Cholecystectomy Musculoskeletal Surgical History: Reports: Arthroscopic Knee Social & Family History - Family History Family Medical History: Noncontributory - Caffeine Use Caffeine Use: Reports: Coffee, Soda, Tea - Living Situation & Occupation Living situation: Reports: with Family Occupation: Retired ED ROS GENERAL - Review of Systems Review Of Systems: ROS reveals no pertinent complaints other than HPI. ED EXAM, GENERAL - Physical Exam Exam: See Below Exam Limited By: No Limitations General Appearance: Alert, WD/WN, Mild Distress, Other (distraught) Eye Exam: Bilateral Eye: PERRL (pupils ess ER @ 4mm) Ears: Hearing Grossly Normal Throat/Mouth: Normal Voice, No Airway Compromise Head: Atraumatic Neck: Non-Tender, Full Range of Motion Respiratory/Chest: No Respiratory Distress Cardiovascular: Regular Rate, Rhythm GI/Abdominal: Soft, Non-Tender Neurological: Alert, Oriented, Normal Cognition, Normal Gait, No Motor/Sensory Deficits Psychiatric: Flat Affect Skin Exam: Warm, Dry, Normal Color Lymphatic: No Adenopathy Course - Vital Signs Last Recorded V/S: Last Vital Signs Temp 36.9 C 10/10/17 19:53 Pulse 85 10/10/17 19:53 Resp 20 10/10/17 19:53 BP 167/86 H 10/10/17 19:53 Pulse Ox 98 10/10/17 19:53 - Orders/Labs/Meds Orders: Active Orders 24 hr Category Date Time Status EKG 12 Lead [EKG Documentation Completion] [RC] STAT Care 10/10/17 19:55 Active Labs: Laboratory Tests 10/10/17 10/10/17 Range/Units 20:00 20:00 WBC 6.6 (5.0-10.0) 10^3/uL RBC 4.25 (4.2-5.4) 10^6/uL Hgb 11.0 L (12.0-16.0) g/dL Hct 33.9 L (37.0-47.0) % MCV 79.8 L (80-100) fL MCH 25.9 L (27.0-34.0) pg MCHC 32.4 L (33.0-35.0) g/dL Plt Count 268 (150-450) 10^3/uL Neut % (Auto) 62.9 (42.2-75.2) % Lymph % (Auto) 23.7 (20.5-50.1) % [place] % (Auto) 11.4 H (2-8) % Eos % (Auto) 1.8 (1.0-3.0) % Baso % (Auto) 0.2 (0.0-1.0) % Sodium 135 (135-145) mmol/L Potassium 3.3 L (3.6-5.0) mmol/L Chloride 102 (101-111) mmol/L Carbon Dioxide 26.0 (21.0-31.0) mmol/L Anion Gap 10.3 BUN 13 (7-18) mg/dL Creatinine 0.8 (0.6-1.3) mg/dL Est Cr Clr Drug Dosing 48.72 mL/min Estimated GFR (MDRD) > 60 BUN/Creatinine Ratio 16.25 Glucose 104 (74-105) mg/dL Calcium 8.8 (8.4-10.2) mg/dl Total Bilirubin 1.0 (0.2-1.0) mg/dL AST 31 (10-42) IU/L ALT 18 (10-60) IU/L Alkaline Phosphatase 75 (42-121) IU/L Troponin I 0.02 (0.00-0.02) ng/ml B-Natriuretic Peptide 20 (0-100) pg/ml Total Protein 7.4 (6.7-8.2) g/dl Albumin 3.7 (3.2-5.5) g/dl Globulin 3.7 Albumin/Globulin Ratio 1.00 - Re-Assessments/Exams Free Text/Narrative Re-Assessment/Exam: 10/10/17 20:35 results discussed with pt who is feeling ok presently but would like something for her anxiety and sleep since they are driving out to [place] tomorrow to see her . 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
[2017-10-10 20:26] LABS: CHLORIDE,CL 102 mmol/L (101-111); SODIUM,NA 135 mmol/L (135-145)
[2017-10-10] MEDS ORDERED: LORazepam 1 MG Tab PO ONE (20:37)
--- NOTE | 2017-10-11 13:45 | EKG ---
10/10/2017- NETTE ROBLERO - FINDINGS: EKG, per my reading, shows sinus rhythm at the rate of 78 with a right bundle-branch block. [id number] /[id number]
== END 2017-10-10 20:59 | disposition home or self-care (01) ==
LOC: DL.ED 19:42
DX: F51.04 Psychophysiologic insomnia (principal); F43.0 Acute stress reaction; I10 Essential (primary) hypertension; E11.21 Type 2 diabetes mellitus with diabetic nephropathy; Z88.1 Allergy status to other antibiotic agents; Z88.5 Allergy status to narcotic agent; Z88.0 Allergy status to penicillin; Z79.82 Long term (current) use of aspirin; Z79.84 Long term (current) use of oral hypoglycemic drugs; Z79.899 Other long term (current) drug therapy
CPT/HCPCS: 36415; 80053; 83880; 84484; 85025; 93005; 93010; 99283; 99284; A9270

== ENCOUNTER 2017-12-29 16:55 | Emergency (ER) | payer MEDICARE, OTHER ==
[2017-12-29] MEDS ORDERED: Benzonatate 100 MG Cap PO ONE ×2 (16:56→17:13)
[2017-12-29] MEDS ORDERED: Levofloxacin 500 MG Tab PO ONE ×2 (16:56→17:47)
[2017-12-29 17:02] VITALS: BP 166/87
--- NOTE | 2017-12-29 17:55 | EDM.PDOC ---
Scribed by Cecy Jade 12/29/17 [id number] for Mark Marques MD ED HPI GENERAL MEDICAL PROBLEM - General Chief Complaint: Respiratory Problem Stated Complaint: HARD TIME BREATHING Time Seen by Provider: 12/29/17 17:08 Source of Information: Reports: Patient, RN, RN Notes Reviewed History Limitations: Reports: No Limitations - History of Present Illness INITIAL COMMENTS - FREE TEXT/NARRATIVE: Patient presents to ER with onset of cough 2 or 3 days ago, worse today with shortness of breath. Patient states she has had intermittent fever up to 105 oral. Cough has been mostly dry. Denies wheezing. Admits to some sore throat. She has had sick grandkids in her home. Kids have gotten better and have not been taken to the doctor. Onset Date: 12/27/17 Duration: Getting Worse Location: Reports: Chest, Other (throat) Quality: Reports: Ache Severity: Moderate Improves with: Reports: None Worsens with: Reports: None Associated Symptoms: Reports: No Other Symptoms Left Feet Pain Score (Numeric/FACES): 7 - Related Data Allergies Allergy/AdvReac Type Severity Reaction Status Date / Time erythromycin base Allergy Unknown Rash Verified 12/29/17 17:02 [Erythromycin Base] ampicillin AdvReac Unknown swelling Verified 12/29/17 17:02 of legs and feet codeine AdvReac Unknown dizzy and Verified 12/29/17 17:02 lightheaded Penicillins AdvReac Unknown swelling Verified 12/29/17 17:02 of legs and feet Home Meds: Home Meds Albuterol [Proventil Neb Soln] 3 ml NEB Q6H PRN 07/23/13 [History] Hydrochlorothiazide 25 mg PO DAILY 07/23/13 [History] Lisinopril 40 mg PO DAILY 07/23/13 [History] Mometasone/Formoterol [Dulera 200 MCG/5 MCG] 2 puff INH BID 07/23/13 [History] Tiotropium [Spiriva Handihaler] 18 mcg INH BID 07/23/13 [History] metFORMIN [Glucophage] 1,000 mg PO DAILY 07/23/13 [History] Aspirin [Halfprin] 81 mg PO BRK 05/11/15 [History] traZODone HCl [Trazodone HCl] 50 mg PO DAILY 08/07/17 [History] Sertraline [Zoloft] 100 mg PO DAILY 08/27/17 [History] Past Medical History Cardiovascular History: Reports: Hypertension Respiratory History: Reports: Asthma, COPD, SOB Other Gastrointestinal History: Appendicitis 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 [employer] History: Reports: Musculoskeletal History: Reports: Arthritis Neurological History: Reports: Head Trauma Psychiatric History: Reports: Anxiety, Depression, Panic Attack Endocrine/Metabolic History: Reports: Diabetes, Type II Hematologic History: Reports: Anemia, Blood Transfusion(s) Immunologic History: Reports: None Oncologic (Cancer) History: Reports: None Dermatologic History: Reports: None - Infectious Disease History Infectious Disease History: Reports: Measles - Past Surgical History HEENT Surgical History: Reports: Tonsillectomy GI Surgical History: Reports: Appendectomy, Cholecystectomy Musculoskeletal Surgical History: Reports: Arthroscopic Knee Social & Family History - Family History Family Medical History: Noncontributory - Caffeine Use Caffeine Use: Reports: Coffee - Living Situation & Occupation Living situation: Reports: with Family Occupation: Retired ED ROS GENERAL - Review of Systems Review Of Systems: ROS reveals no pertinent complaints other than HPI. ED EXAM, GENERAL - Physical Exam Exam: See Below Exam Limited By: No Limitations General Appearance: Alert, No Apparent Distress, Other (mildly ill but nontoxic appearing) Eye Exam: Bilateral Eye: Normal Inspection Ears: Normal External Exam, Normal Canal, Hearing Grossly Normal, Normal TMs Nose: No Blood, Nasal Drainage (mild and clear, congestion.) Throat/Mouth: Normal Lips, Normal Teeth, Normal Gums, Normal Voice, No Airway Compromise, Other (mild streaky pharyngeal erythema and small amount of post nasal drip. No exudates.) Head: Atraumatic Neck: Normal Inspection, Supple, Non-Tender, Full Range of Motion Respiratory/Chest: No Respiratory Distress, No Accessory Muscle Use, Chest Non- Tender, Decreased Breath Sounds, Crackles (coarse breath sounds throughout with moist nonproductive cough.). No: Rales, Rhonchi, Wheezing Cardiovascular: Regular Rate, Rhythm, No Edema GI/Abdominal: Normal Bowel Sounds, Soft, Non-Tender, No Distention. No: Guarding, Rigid, Rebound (Female) Exam: Deferred Rectal (Female) Exam: Deferred Back Exam: Normal Inspection Extremities: Normal Inspection, Normal Range of Motion, Non-Tender, Normal Capillary Refill, No Pedal Edema Neurological: Alert, Oriented, CN II-XII Intact, Normal Cognition, Normal Gait, No Motor/Sensory Deficits Psychiatric: Normal Mood Skin Exam: Warm, Dry, Intact, Normal Color, No Rash Course - Vital Signs Last Recorded V/S: Last Vital Signs Temp 36.8 C 12/29/17 16:59 Pulse 85 12/29/17 16:59 Resp 18 12/29/17 16:59 BP 166/87 H 12/29/17 16:59 Pulse Ox 98 12/29/17 16:59 - Orders/Labs/Meds Orders: Active Orders 24 hr Category Date Time Status Chest 2V [CR] Stat Exams 12/29/17 17:12 Taken STREP SCRN A RAPID W CULT CONF [RM] Stat Lab 12/29/17 17:35 Received Labs: Laboratory Tests 12/29/17 Range/Units 17:37 WBC 6.3 (5.0-10.0) 10^3/uL RBC 4.49 (4.2-5.4) 10^6/uL Hgb 11.5 L (12.0-16.0) g/dL Hct 36.1 L (37.0-47.0) % MCV 80.4 (80-100) fL MCH 25.6 L (27.0-34.0) pg MCHC 31.9 L (33.0-35.0) g/dL Plt Count 240 (150-450) 10^3/uL Neut % (Auto) 57.0 (42.2-75.2) % Lymph % (Auto) 26.8 (20.5-50.1) % Moore % (Auto) 11.8 H (2-8) % Eos % (Auto) 4.1 H (1.0-3.0) % Baso % (Auto) 0.3 (0.0-1.0) % Meds: Medications Discontinued Medications Generic Name Dose Route Start Last Admin Trade Name Freq PRN Reason Stop Dose Admin Benzonatate 200 mg 12/29/17 17:13 12/29/17 17:39 Tessalon Perles PO 12/29/17 17:14 200 mg ONETIME ONE Administration Levofloxacin 500 mg 12/29/17 17:47 Levaquin PO 12/29/17 17:48 ONETIME ONE - Radiology Interpretation Free Text/Narrative:: [facility] Final Radiology Report Call: [phone] assistance Online chat: [email or web address] Name: NETTE ROBLERO Age: 77Years F Date: 12/29/2017 SSN: -- : 1940 Study: XR CHEST 2 VIEWS Requesting Physician: MARK MARQUES Images: 2 Addl Studies: Provided Clinical History: Contrast: Contrast Medium: Contrast Amount: Contrast Method: CONFIDENTIALITY STATEMENT This report is intended only for use by the referring physician, and only in accordance with law. If you received this in error, call [phone]. Page 1 of 1 EXAM: XR Chest, 2 Views CLINICAL HISTORY: 77 years old, female; Signs and symptoms; Cough and dyspnea TECHNIQUE: Frontal and lateral views of the chest. COMPARISON: CR - Chest 2V 07/04/2017 10:10 PM FINDINGS: Lungs: Unremarkable. No consolidation. Pleural space: Unremarkable. No pneumothorax. Heart: Unremarkable. No cardiomegaly. Mediastinum: Unremarkable. Bones/joints: Unremarkable. IMPRESSION: No acute cardiopulmonary process. There is no significant interval change. Thank you for allowing us to participate in the care of your patient. Dictated and Authenticated by: Alberto Hemphill MD 12/29/2017 5:40 PM Central Time Departure - Departure Time of Disposition: 17:51 Disposition: Home, Self-Care 01 Condition: Good Clinical Impression: Acute bronchitis Qualifiers: Bronchitis organism: other organism Qualified Code(s): J20.8 - Acute bronchitis due to other specified organisms Pharyngitis Qualifiers: Pharyngitis/tonsillitis etiology: unspecified etiology Qualified Code(s): J02.9 - Acute pharyngitis, unspecified - Discharge Information Instructions: Acute Bronchitis, Adult, [id number], Pharyngitis, [id number] Forms: ED Department Discharge Additional Instructions: RX: Levaguin 500mg. RX: Tessalon [id number]. Follow up in clinic if not improved in 3 to 4 days. - My Orders Last 24 Hours: My Active Orders 12/29/17 17:12 Chest 2V [CR] Stat 12/29/17 17:35 STREP SCRN A RAPID W CULT CONF [RM] Stat - Assessment/Plan Last 24 Hours: My Active Orders 12/29/17 17:12 Chest 2V [CR] Stat 12/29/17 17:35 STREP SCRN A RAPID W CULT CONF [RM] Stat I have read and agree with the documentation that has been completed regarding this visit. By signing this record, I attest that the documentation was completed in my physical presence and is an accurate record of the encounter.
[2017-12-29] MEDS ORDERED: Levofloxacin 500 MG Tab ONE (17:56)
[2017-12-29] MEDS ORDERED: Benzonatate 100 MG Cap ONE (17:56)
== END 2017-12-29 18:04 | disposition home or self-care (01) ==
LOC: DL.ED 16:55
DX: J20.8 Acute bronchitis due to other specified organisms (principal); J02.9 Acute pharyngitis, unspecified; E11.21 Type 2 diabetes mellitus with diabetic nephropathy; I10 Essential (primary) hypertension; Z88.0 Allergy status to penicillin; Z88.5 Allergy status to narcotic agent; Z88.1 Allergy status to other antibiotic agents
CPT/HCPCS: 36415; 71046; 85025; 87081; 87430; 99285; A9270; 99283

== ENCOUNTER 2018-05-14 21:27 | Emergency (ER) | payer MEDICARE, OTHER ==
[2018-05-14 22:20] LABS: ANION GAP 12.6; CHLORIDE,CL 104 mmol/L (101-111); SODIUM,NA 135 mmol/L (135-145)
--- NOTE | 2018-05-14 23:17 | EDM.PDOC ---
ED HPI GENERAL MEDICAL PROBLEM - General Chief Complaint: Trauma Stated Complaint: UNKNOWN Time Seen by Provider: 05/14/18 21:30 Source of Information: Reports: Patient, EMS History Limitations: Reports: No Limitations - History of Present Illness INITIAL COMMENTS - FREE TEXT/NARRATIVE: Arrival via [facility] Alert talking No acute distress, C- collar on. Stated getting up out of recliner chair when heard kids coming. Dizzy with change of position and fell backwards, stated hit towards back of head, assisted up to chair by family, Initial neck pain resolved when had her usual pillow. Denied loss of consciousness, denied other injury Scheduled with PCP for problems with dizziness. - Related Data Allergies Allergy/AdvReac Type Severity Reaction Status Date / Time erythromycin base Allergy Unknown Rash Verified 05/01/18 16:26 [Erythromycin Base] ampicillin AdvReac Unknown swelling Verified 05/01/18 16:26 of legs and feet codeine AdvReac Unknown dizzy and Verified 05/01/18 16:26 lightheaded Penicillins AdvReac Unknown swelling Verified 05/01/18 16:26 of legs and feet Home Meds: Home Meds Albuterol [Proventil Neb Soln] 3 ml NEB Q6H PRN 07/23/13 [History] Hydrochlorothiazide 25 mg PO DAILY 07/23/13 [History] Lisinopril 40 mg PO DAILY 07/23/13 [History] Mometasone/Formoterol [Dulera 200 MCG/5 MCG] 2 puff INH QAM 07/23/13 [History] Tiotropium [Spiriva Handihaler] 18 mcg INH BID 07/23/13 [History] metFORMIN [Glucophage] 1,000 mg PO BID 07/23/13 [History] Aspirin [Halfprin] 81 mg PO BRK 05/11/15 [History] traZODone HCl [Trazodone HCl] 50 mg PO BEDTIME 08/07/17 [History] Sertraline [Zoloft] 100 mg PO DAILY 08/27/17 [History] Past Medical History Cardiovascular History: Reports: Hypertension Respiratory History: Reports: Asthma, COPD, SOB Other Gastrointestinal History: Appendicitis 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 [employer] History: Reports: Musculoskeletal History: Reports: Arthritis Neurological History: Reports: Head Trauma Psychiatric History: Reports: Anxiety, Depression, Panic Attack Endocrine/Metabolic History: Reports: Diabetes, Type II Hematologic History: Reports: Anemia, Blood Transfusion(s) Immunologic History: Reports: None Oncologic (Cancer) History: Reports: None Dermatologic History: Reports: None - Infectious Disease History Infectious Disease History: Reports: Measles, Shingles Other Infectious Disease History: 02/12/18 recent diagnosis of shingles - Past Surgical History HEENT Surgical History: Reports: Tonsillectomy GI Surgical History: Reports: Appendectomy, Cholecystectomy Musculoskeletal Surgical History: Reports: Arthroscopic Knee Social & Family History - Family History Family Medical History: Noncontributory - Caffeine Use Caffeine Use: Reports: Coffee - Living Situation & Occupation Living situation: Reports: with Family Occupation: Retired Review of Systems - Review of Systems Review Of Systems: See Below Constitutional: Reports: Weakness (general no recent change) Eyes: Reports: No Symptoms Ears: Reports: No Symptoms Nose: Reports: No Symptoms Mouth/Throat: Reports: No Symptoms Respiratory: Reports: No Symptoms Cardiovascular: Reports: Lightheadedness (changing position) GI/Abdominal: Reports: No Symptoms Musculoskeletal: Reports: Neck Pain Skin: Reports: No Symptoms Neurological: Reports: Headache. Denies: Confusion, Seizure, Syncope, Tremors, Difficulty Walking Psychiatric: Reports: No Symptoms ED EXAM, GENERAL - Physical Exam Exam: See Below Exam Limited By: No Limitations General Appearance: Alert, No Apparent Distress Eye Exam: Bilateral Eye: EOMI, PERRL (2) Ears: Normal External Exam, Hearing Grossly Normal, Normal TMs Nose: Normal Inspection Throat/Mouth: Normal Inspection Head: Atraumatic, Normocephalic Neck: Tender Lateral, Tender Midline (upper), Other (C collar on at scene per EMS) Respiratory/Chest: No Respiratory Distress, Lungs Clear, Normal Breath Sounds Cardiovascular: Normal Peripheral Pulses, Regular Rate, Rhythm, No Edema GI/Abdominal: Normal Bowel Sounds, Soft, Non-Tender Back Exam: Normal Inspection. No: CVA Tenderness (L), CVA Tenderness (R), Paraspinal Tenderness, Vertebral Tenderness Extremities: Normal Inspection Neurological: Oriented, CN II-XII Intact, No Motor/Sensory Deficits. No: Confused, Disoriented Psychiatric: Normal Affect Skin Exam: Warm, Dry, Intact, Normal Color. No: Wound/Incision Course - Vital Signs Last Recorded V/S: Orthostatic Blood Pressure [ 153/79 Standing] Orthostatic Blood Pressure [ 148/96 Sitting] Orthostatic Blood Pressure [ 141/77 Supine] - Orders/Labs/Meds Orders: Active Orders 24 hr Category Date Time Status Orthostatic Vital Signs [RC] ASDIRECTED Care 05/14/18 22:57 Active CULTURE URINE [RM] Urgent Lab 05/14/18 22:14 Received Labs: Laboratory Tests 05/14/18 05/14/18 05/14/18 Range/Units 21:39 21:39 21:39 WBC 4.7 L (5.0-10.0) 10^3/uL RBC 4.16 L (4.2-5.4) 10^6/uL Hgb 11.2 L (12.0-16.0) g/dL Hct 33.5 L (37.0-47.0) % MCV 80.5 (80-100) fL MCH 26.9 L (27.0-34.0) pg MCHC 33.4 (33.0-35.0) g/dL Plt Count 230 (150-450) 10^3/uL Neut % (Auto) 51.2 (42.2-75.2) % Lymph % (Auto) 30.4 (20.5-50.1) % Tate % (Auto) 14.6 H (2-8) % Eos % (Auto) 3.2 H (1.0-3.0) % Baso % (Auto) 0.6 (0.0-1.0) % PT 11.0 D (9.0-12.0) SEC INR 1.1 (0.9-1.2) Sodium 135 (135-145) mmol/L Potassium 3.6 (3.6-5.0) mmol/L Chloride 104 (101-111) mmol/L Carbon Dioxide 22.0 (21.0-31.0) mmol/L Anion Gap 12.6 BUN 11 (7-18) mg/dL Creatinine 0.7 (0.6-1.3) mg/dL Est Cr Clr Drug Dosing TNP Estimated GFR (MDRD) > 60 BUN/Creatinine Ratio 15.71 Glucose 101 (74-105) mg/dL Calcium 8.8 (8.4-10.2) mg/dl Total Bilirubin 1.4 H (0.2-1.0) mg/dL AST 32 (10-42) IU/L ALT 16 (10-60) IU/L Alkaline Phosphatase 82 (42-121) IU/L Total Protein 7.3 (6.7-8.2) g/dl Albumin 3.7 (3.2-5.5) g/dl Globulin 3.6 Albumin/Globulin Ratio 1.03 Urine Color (YELLOW) Urine Appearance (CLEAR) Urine pH (5.0-9.0) Ur Specific [place] (1.005-1.030) Urine Protein (NEGATIVE) Urine Glucose (UA) (NEGATIVE) Urine Ketones (NEGATIVE) Urine Occult Blood (NEGATIVE) Urine Nitrite (NEGATIVE) Urine Bilirubin (NEGATIVE) Urine Urobilinogen (0.2-1.0) mg/dL Ur Leukocyte Esterase (NEGATIVE) Urine RBC /HPF Urine WBC (0-5/HPF) /HPF Ur Epithelial Cells /HPF Amorphous Sediment (0/HPF) /HPF Urine Bacteria (0-FEW/HPF) /HPF 05/14/18 Range/Units 22:14 WBC (5.0-10.0) 10^3/uL RBC (4.2-5.4) 10^6/uL Hgb (12.0-16.0) g/dL Hct (37.0-47.0) % MCV (80-100) fL MCH (27.0-34.0) pg MCHC (33.0-35.0) g/dL Plt Count (150-450) 10^3/uL Neut % (Auto) (42.2-75.2) % Lymph % (Auto) (20.5-50.1) % Tate % (Auto) (2-8) % Eos % (Auto) (1.0-3.0) % Baso % (Auto) (0.0-1.0) % PT (9.0-12.0) SEC INR (0.9-1.2) Sodium (135-145) mmol/L Potassium (3.6-5.0) mmol/L Chloride (101-111) mmol/L Carbon Dioxide (21.0-31.0) mmol/L Anion Gap BUN (7-18) mg/dL Creatinine (0.6-1.3) mg/dL Est Cr Clr Drug Dosing Estimated GFR (MDRD) BUN/Creatinine Ratio Glucose (74-105) mg/dL Calcium (8.4-10.2) mg/dl Total Bilirubin (0.2-1.0) mg/dL AST (10-42) IU/L ALT (10-60) IU/L Alkaline Phosphatase (42-121) IU/L Total Protein (6.7-8.2) g/dl Albumin (3.2-5.5) g/dl Globulin Albumin/Globulin Ratio Urine Color Yellow (YELLOW) Urine Appearance Clear (CLEAR) Urine pH 7.0 (5.0-9.0) Ur Specific [place] 1.015 (1.005-1.030) Urine Protein Negative (NEGATIVE) Urine Glucose (UA) Negative (NEGATIVE) Urine Ketones Negative (NEGATIVE) Urine Occult Blood Negative (NEGATIVE) Urine Nitrite Negative (NEGATIVE) Urine Bilirubin Negative (NEGATIVE) Urine Urobilinogen 1.0 (0.2-1.0) mg/dL Ur Leukocyte Esterase Trace H (NEGATIVE) Urine RBC 0-5 /HPF Urine WBC 0-5 (0-5/HPF) /HPF Ur Epithelial Cells Rare /HPF Amorphous Sediment Rare (0/HPF) /HPF Urine Bacteria Rare (0-FEW/HPF) /HPF - Radiology Interpretation Free Text/Narrative:: Head and c- cspine negative - Re-Assessments/Exams Free Text/Narrative Re-Assessment/Exam: 05/15/18 08:06 Alert, Reports pain in back of head from fall resolved, 2215 C collar removed, c- spine cleared . Normal c-spine CT. Patient reports pain resolved with removal of C- collar. Family here, Patient conversant. Oriented. Up to bedside commode with supervision. Departure - Departure Time of Disposition: 23:14 Disposition: Home, Self-Care 01 Condition: Good Clinical Impression: Fall in home Qualifiers: Encounter type: initial encounter Qualified Code(s): W19.XXXA - Unspecified fall, initial encounter; Y92.009 - Unspecified place in unspecified non- institutional (private) residence as the place of occurrence of the external cause Contusion Qualifiers: Encounter type: initial encounter Contusion area: head Contusion of head detail : scalp Qualified Code(s): S00.03XA - Contusion of scalp, initial encounter - Discharge Information *PRESCRIPTION DRUG MONITORING PROGRAM REVIEWED*: No *COPY OF PRESCRIPTION DRUG MONITORING REPORT IN PATIENT AARON: No Instructions: Fall Prevention in the Home, [id number] Referrals: Khushboo Mei MD [Primary Care Provider] - Forms: ED Department Discharge Additional Instructions: use walker change positions slowly follow up with primary care medications as ordered family to check during night. - My Orders Last 24 Hours: My Active Orders 05/14/18 22:14 CULTURE URINE [RM] Urgent 05/14/18 22:57 Orthostatic Vital Signs [RC] ASDIRECTED - Assessment/Plan Last 24 Hours: My Active Orders 05/14/18 22:14 CULTURE URINE [RM] Urgent 05/14/18 22:57 Orthostatic Vital Signs [RC] ASDIRECTED
== END 2018-05-14 23:30 | disposition home or self-care (01) ==
LOC: DL.ED 21:27
DX: S00.03XA Contusion of scalp, initial encounter (principal); E11.9 Type 2 diabetes mellitus without complications; J44.9 Chronic obstructive pulmonary disease, unspecified; Z88.1 Allergy status to other antibiotic agents; Z88.5 Allergy status to narcotic agent; Z79.899 Other long term (current) drug therapy; W07.XXXA Fall from chair, initial encounter; Y92.009 Unspecified place in unspecified non-institutional (private) residence as the place of occurrence of the external cause
CPT/HCPCS: 36415; 70450; 72125; 72170; 80053; 81001; 85025; 85610; 87086; 99284

== ENCOUNTER 2018-06-13 18:36 | Emergency (ER) | payer MEDICARE, OTHER ==
[2018-06-13 18:40] VITALS: BP 103/57
[2018-06-13 19:43] LABS: ANION GAP 16.5; CHLORIDE,CL 97 mmol/L (101-111); SODIUM,NA 134 mmol/L (135-145)
--- NOTE | 2018-06-13 21:10 | EDM.PDOC ---
ED HPI GENERAL MEDICAL PROBLEM - General Chief Complaint: General Stated Complaint: [facility] Time Seen by Provider: 06/13/18 19:10 Source of Information: Reports: Patient, EMS History Limitations: Reports: No Limitations - History of Present Illness INITIAL COMMENTS - FREE TEXT/NARRATIVE: ED with c/o dizziness when up and generalized weakness. Reports MRI for same c/ o done this week but has not heard results. Patient admits to being anxious and feeling depressed. Expresses worry over family members. No recent fever or chills. No cough. Appetite fair. No urinary c/o No nausea, vomiting or diarrhea. - Related Data Allergies Allergy/AdvReac Type Severity Reaction Status Date / Time erythromycin base Allergy Unknown Rash Verified 06/13/18 18:37 [Erythromycin Base] ampicillin AdvReac Unknown swelling Verified 06/13/18 18:37 of legs and feet codeine AdvReac Unknown dizzy and Verified 06/13/18 18:37 lightheaded Penicillins AdvReac Unknown swelling Verified 06/13/18 18:37 of legs and feet Home Meds: Home Meds Albuterol [Proventil Neb Soln] 3 ml NEB Q6H PRN 07/23/13 [History] Hydrochlorothiazide 25 mg PO DAILY 07/23/13 [History] Lisinopril 40 mg PO DAILY 07/23/13 [History] Mometasone/Formoterol [Dulera 200 MCG/5 MCG] 2 puff INH QAM 07/23/13 [History] Tiotropium [Spiriva Handihaler] 18 mcg INH BID 07/23/13 [History] metFORMIN [Glucophage] 1,000 mg PO BID 07/23/13 [History] Aspirin [Halfprin] 81 mg PO BRK 05/11/15 [History] traZODone HCl [Trazodone HCl] 50 mg PO BEDTIME 08/07/17 [History] Sertraline [Zoloft] 100 mg PO DAILY 08/27/17 [History] Past Medical History Cardiovascular History: Reports: Hypertension Respiratory History: Reports: Asthma, COPD, SOB Other Gastrointestinal History: Appendicitis 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 [employer] History: Reports: Musculoskeletal History: Reports: Arthritis Neurological History: Reports: Head Trauma Psychiatric History: Reports: Anxiety, Depression, Panic Attack Endocrine/Metabolic History: Reports: Diabetes, Type II Hematologic History: Reports: Anemia, Blood Transfusion(s) Immunologic History: Reports: None Oncologic (Cancer) History: Reports: None Dermatologic History: Reports: None - Infectious Disease History Infectious Disease History: Reports: Measles, Shingles Other Infectious Disease History: 02/12/18 recent diagnosis of shingles - Past Surgical History HEENT Surgical History: Reports: Tonsillectomy GI Surgical History: Reports: Appendectomy, Cholecystectomy Musculoskeletal Surgical History: Reports: Arthroscopic Knee Social & Family History - Family History Family Medical History: Noncontributory - Tobacco Use Smoking Status *Q: Never Smoker - Caffeine Use Caffeine Use: Reports: Coffee - Recreational Drug Use Recreational Drug Use: No - Living Situation & Occupation Living situation: Reports: with Family Occupation: Retired ED ROS GENERAL - Review of Systems Review Of Systems: ROS reveals no pertinent complaints other than HPI. ED EXAM, GENERAL - Physical Exam Exam: See Below Exam Limited By: No Limitations General Appearance: Alert, No Apparent Distress, Anxious Eye Exam: Bilateral Eye: EOMI, Normal Fundi, Normal Inspection, PERRL Ears: Normal External Exam, Normal TMs Nose: Normal Inspection Throat/Mouth: Normal Inspection Head: Atraumatic, Normocephalic Neck: Normal Inspection, Supple, Full Range of Motion Respiratory/Chest: No Respiratory Distress, Lungs Clear, Normal Breath Sounds Cardiovascular: Normal Peripheral Pulses, Regular Rate, Rhythm GI/Abdominal: Normal Bowel Sounds, Soft, Non-Tender, No Distention Back Exam: Full Range of Motion Extremities: Normal Range of Motion, Pedal Edema (1+pedal bilateral) Neurological: Alert, Oriented Psychiatric: Anxious Skin Exam: Warm, Dry, Intact, Normal Color Course - Vital Signs Last Recorded V/S: Last Vital Signs Temp 96.7 F 06/13/18 18:37 Pulse 78 06/13/18 18:37 Resp 18 06/13/18 18:37 BP 103/57 L 06/13/18 18:37 Pulse Ox 95 06/13/18 18:37 Orthostatic Blood Pressure [ 121/70 Standing] Orthostatic Blood Pressure [ 117/73 Sitting] Orthostatic Blood Pressure [ 97/52 Supine] - Orders/Labs/Meds Orders: Active Orders 24 hr Category Date Time Status EKG 12 Lead [EKG Documentation Completion] [RC] STAT Care 06/13/18 19:53 Active Labs: Laboratory Tests 06/13/18 06/13/18 Range/Units 19:08 19:08 WBC 5.0 (5.0-10.0) 10^3/uL RBC 4.58 (4.2-5.4) 10^6/uL Hgb 11.9 L (12.0-16.0) g/dL Hct 36.7 L (37.0-47.0) % MCV 80.1 (80-100) fL MCH 26.0 L (27.0-34.0) pg MCHC 32.4 L (33.0-35.0) g/dL Plt Count 237 (150-450) 10^3/uL Neut % (Auto) 51.9 (42.2-75.2) % Lymph % (Auto) 28.4 (20.5-50.1) % [place] % (Auto) 15.3 H (2-8) % Eos % (Auto) 4.2 H (1.0-3.0) % Baso % (Auto) 0.2 (0.0-1.0) % Sodium 134 L (135-145) mmol/L Potassium 3.5 L (3.6-5.0) mmol/L Chloride 97 L (101-111) mmol/L Carbon Dioxide 24.0 (21.0-31.0) mmol/L Anion Gap 16.5 BUN 23 H (7-18) mg/dL Creatinine 0.9 (0.6-1.3) mg/dL Est Cr Clr Drug Dosing 44.49 mL/min Estimated GFR (MDRD) > 60 BUN/Creatinine Ratio 25.55 Glucose 118 H (74-105) mg/dL Calcium 9.2 (8.4-10.2) mg/dl Total Bilirubin 0.9 (0.2-1.0) mg/dL AST 28 (10-42) IU/L ALT 15 (10-60) IU/L Alkaline Phosphatase 80 (42-121) IU/L Troponin I 0.03 H* (0.00-0.02) ng/ml Total Protein 7.4 (6.7-8.2) g/dl Albumin 3.8 (3.2-5.5) g/dl Globulin 3.6 Albumin/Globulin Ratio 1.06 - Re-Assessments/Exams Free Text/Narrative Re-Assessment/Exam: 06/14/18 05:26 Previous MRI reviewed, No acute process. Chronic microvascular infarcts. Departure - Departure Time of Disposition: 21:08 Disposition: Home, Self-Care 01 Condition: Good Clinical Impression: Anxiety, Dizzy - Discharge Information *PRESCRIPTION DRUG MONITORING PROGRAM REVIEWED*: Not Applicable Instructions: Vertigo Referrals: PCP,None [Primary Care Provider] - Forms: ED Department Discharge Additional Instructions: follow up with primary care next week home medications s ordered by primary care change positions slowly urgent follow up if symptoms worsen - My Orders Last 24 Hours: My Active Orders 06/13/18 19:53 EKG 12 Lead [EKG Documentation Completion] [RC] STAT - Assessment/Plan Last 24 Hours: My Active Orders 06/13/18 19:53 EKG 12 Lead [EKG Documentation Completion] [RC] STAT
== END 2018-06-13 21:17 | disposition home or self-care (01) ==
LOC: DL.ED 18:36
DX: F41.9 Anxiety disorder, unspecified (principal); R42 Dizziness and giddiness; E11.21 Type 2 diabetes mellitus with diabetic nephropathy; I10 Essential (primary) hypertension; F32.9 Major depressive disorder, single episode, unspecified; Z88.5 Allergy status to narcotic agent; Z88.0 Allergy status to penicillin; Z88.1 Allergy status to other antibiotic agents; Z79.899 Other long term (current) drug therapy
CPT/HCPCS: 36415; 80053; 84484; 85025; 93005; 99284

== ENCOUNTER 2018-10-22 20:39 | Emergency (ER) | payer MEDICARE, OTHER ==
[2018-10-22 21:22] LABS: CHLORIDE,CL 95 mmol/L (101-111); SODIUM,NA 128 mmol/L (135-145)
[2018-10-22] MEDS: Ondansetron 4 MG/2 ML SDV IV ONE (21:47)
[2018-10-22] MEDS: Sodium Chloride 0.9% 500 ML IV ONE (21:49)
[2018-10-22] MEDS: Potassium Chloride 10 MEQ in Premix Bag 1 BAG IV ONE (21:49)
[2018-10-22 22:04] VITALS: BP 144/71
--- NOTE | 2018-10-22 22:40 | EDM.PDOC ---
ED HPI GENERAL MEDICAL PROBLEM - General Chief Complaint: General Stated Complaint: ALBULANCE Time Seen by Provider: 10/22/18 21:00 Source of Information: Reports: Patient, EMS History Limitations: Reports: No Limitations - History of Present Illness INITIAL COMMENTS - FREE TEXT/NARRATIVE: ED with c/o nausea and vomiting pat 3 days approximately 3 times daily has been drinking fluid today, only ate watermelon, fell to knees today. Has walker but rodriguez snot been using. Home health visits to check medications and vitals. Dizziness chronic issue. No c/o SOB or chest pain. No cough. No urinary symptoms , No blood in stools or emesis. No fever or chills. Has not hit head with falls. Pain to left kneecap. Left Knee Pain Score (Numeric/FACES): 4 - Related Data Allergies Allergy/AdvReac Type Severity Reaction Status Date / Time erythromycin base Allergy Unknown Rash Verified 10/22/18 20:57 [Erythromycin Base] ampicillin AdvReac Unknown swelling Verified 10/22/18 20:57 of legs and feet codeine AdvReac Unknown dizzy and Verified 10/22/18 20:57 lightheaded Penicillins AdvReac Unknown swelling Verified 10/22/18 20:57 of legs and feet Home Meds: Home Meds Hydrochlorothiazide 50 mg PO DAILY 07/23/13 [History] Lisinopril 40 mg PO DAILY 07/23/13 [History] Tiotropium [Spiriva Handihaler] 18 mcg INH DAILY 07/23/13 [History] metFORMIN [Glucophage] 500 mg PO BID 07/23/13 [History] Aspirin [Halfprin] 81 mg PO BRK 05/11/15 [History] Sertraline [Zoloft] 100 mg PO DAILY 08/27/17 [History] Acetaminophen [Acetaminophen Extra Strength] 1,000 mg pe PO Q6HR PRN 10/13/18 [ History] Budesonide [Pulmicort] 1 vial IH BID 10/13/18 [History] Ferrous Gluconate 324 mg PO BID 10/13/18 [History] Formoterol Fumarate [Perforomist] 1 vial IH BID 10/13/18 [History] Albuterol Sulfate [Albuterol Sulfate Hfa] 8.5 gm IH DAILY 10/14/18 [History] Carboxymethylcellulose Sodium [Lubricant Eye Drops] 1 drop EYEBOTH QID PRN 10/14 [History] Cholecalciferol (Vitamin D3) [Vitamin D3] 1,000 unit PO DAILY 10/14/18 [History] Ferrous Gluconate 324 mg PO BID 10/14/18 [History] Past Medical History Cardiovascular History: Reports: Hypertension Respiratory History: Reports: Asthma, COPD, SOB Other Gastrointestinal History: Appendicitis 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: Musculoskeletal History: Reports: Arthritis Neurological History: Reports: Head Trauma Psychiatric History: Reports: Anxiety, Depression, Panic Attack Endocrine/Metabolic History: Reports: Diabetes, Type II Hematologic History: Reports: Anemia, Blood Transfusion(s) Immunologic History: Reports: None Oncologic (Cancer) History: Reports: None Dermatologic History: Reports: None - Infectious Disease History Infectious Disease History: Reports: Measles, Shingles Other Infectious Disease History: 02/12/18 recent diagnosis of shingles - Past Surgical History HEENT Surgical History: Reports: Tonsillectomy GI Surgical History: Reports: Appendectomy, Cholecystectomy Musculoskeletal Surgical History: Reports: Arthroscopic Knee Social & Family History - Family History Family Medical History: Noncontributory - Tobacco Use Smoking Status *Q: Never Smoker Second Hand Smoke Exposure: No - Caffeine Use Caffeine Use: Reports: Coffee, Soda, Tea - Recreational Drug Use Recreational Drug Use: No - Living Situation & Occupation Living situation: Reports: with Family Occupation: Retired ED ROS GENERAL - Review of Systems Review Of Systems: ROS reveals no pertinent complaints other than HPI. ED EXAM, GENERAL - Physical Exam Exam: See Below Exam Limited By: No Limitations General Appearance: Alert, No Apparent Distress Eye Exam: Bilateral Eye: EOMI, PERRL Ears: Normal External Exam, Normal TMs Nose: Normal Inspection Head: Atraumatic, Normocephalic Neck: Normal Inspection Respiratory/Chest: No Respiratory Distress, Lungs Clear, Normal Breath Sounds Cardiovascular: Normal Peripheral Pulses, Regular Rate, Rhythm GI/Abdominal: Normal Bowel Sounds, Non-Tender Extremities: Normal Range of Motion, Other (tender with palpation to left patella. No swelling bruising or effusion). No: Joint Swelling Psychiatric: Flat Affect Skin Exam: Warm, Dry, Intact EKG INTERPRETATION Rhythm: Other (accelerated junctional) Course - Vital Signs Last Recorded V/S: Last Vital Signs Temp 97.7 F 10/22/18 22:03 Pulse 67 10/22/18 22:03 Resp 18 10/22/18 22:03 BP 144/71 H 10/22/18 22:03 Pulse Ox 97 10/22/18 22:03 Orthostatic Blood Pressure [ 153/71 Standing] Orthostatic Blood Pressure [ 150/74 Sitting] Orthostatic Blood Pressure [ 133/64 Supine] - Orders/Labs/Meds Orders: Active Orders 24 hr Category Date Time Status EKG 12 Lead [EKG Documentation Completion] [RC] URGENT Care 10/22/18 21:02 Active Knee 3V Lt [CR] Urgent Exams 10/22/18 21:33 Taken CULTURE URINE [RM] Urgent Lab 10/22/18 21:26 Received Labs: Laboratory Tests 10/22/18 10/22/18 10/22/18 Range/Units 20:48 20:48 20:48 WBC 5.5 (5.0-10.0) 10^3/uL RBC 4.12 L (4.2-5.4) 10^6/uL Hgb 11.9 L (12.0-16.0) g/dL Hct 35.0 L (37.0-47.0) % MCV 85.0 D (80-100) fL MCH 28.9 (27.0-34.0) pg MCHC 34.0 (33.0-35.0) g/dL Plt Count 242 (150-450) 10^3/uL Neut % (Auto) 51.5 (42.2-75.2) % Lymph % (Auto) 29.3 (20.5-50.1) % [place] % (Auto) 17.0 H (2-8) % Eos % (Auto) 1.8 (1.0-3.0) % Baso % (Auto) 0.4 (0.0-1.0) % Sodium 128 L (135-145) mmol/L Potassium 3.0 L (3.6-5.0) mmol/L Chloride 95 L (101-111) mmol/L Carbon Dioxide 22.0 (21.0-31.0) mmol/L Anion Gap 14.0 BUN 14 (7-18) mg/dL Creatinine 0.6 (0.6-1.3) mg/dL Est Cr Clr Drug Dosing 63.92 mL/min Estimated GFR (MDRD) > 60 BUN/Creatinine Ratio 23.33 Glucose 107 H (74-105) mg/dL POC Glucose 104 (83-110) mg/dl Calcium 8.8 (8.4-10.2) mg/dl Magnesium 1.5 L (1.8-2.5) mg/dL Total Bilirubin 1.0 (0.2-1.0) mg/dL AST 33 (10-42) IU/L ALT 18 (10-60) IU/L Alkaline Phosphatase 74 (42-121) IU/L Troponin I < 0.02 (0.00-0.02) ng/ml B-Natriuretic Peptide 14 (0-100) pg/ml Total Protein 7.0 (6.7-8.2) g/dl Albumin 4.0 (3.2-5.5) g/dl Globulin 3.0 Albumin/Globulin Ratio 1.33 Amylase 45 (28-100) U/L Lipase 43 (22-51) U/L Urine Color (YELLOW) Urine Appearance (CLEAR) Urine pH (5.0-9.0) Ur Specific [place] (1.005-1.030) Urine Protein (NEGATIVE) Urine Glucose (UA) (NEGATIVE) Urine Ketones (NEGATIVE) Urine Occult Blood (NEGATIVE) Urine Nitrite (NEGATIVE) Urine Bilirubin (NEGATIVE) Urine Urobilinogen (0.2-1.0) mg/dL Ur Leukocyte Esterase (NEGATIVE) Urine RBC /HPF Urine WBC (0-5/HPF) /HPF Ur Epithelial Cells (NOT SEEN) /HPF Amorphous Sediment (NOT SEEN) /HPF Urine Bacteria (0-FEW/HPF) /HPF Urine Mucus (NOT SEEN) /LPF 10/22/ Range/Units 21:26 WBC (5.0-10.0) 10^3/uL RBC (4.2-5.4) 10^6/uL Hgb (12.0-16.0) g/dL Hct (37.0-47.0) % MCV (80-100) fL MCH (27.0-34.0) pg MCHC (33.0-35.0) g/dL Plt Count (150-450) 10^3/uL Neut % (Auto) (42.2-75.2) % Lymph % (Auto) (20.5-50.1) % [place] % (Auto) (2-8) % Eos % (Auto) (1.0-3.0) % Baso % (Auto) (0.0-1.0) % Sodium (135-145) mmol/L Potassium (3.6-5.0) mmol/L Chloride (101-111) mmol/L Carbon Dioxide (21.0-31.0) mmol/L Anion Gap BUN (7-18) mg/dL Creatinine (0.6-1.3) mg/dL Est Cr Clr Drug Dosing mL/min Estimated GFR (MDRD) BUN/Creatinine Ratio Glucose (74-105) mg/dL POC Glucose (83-110) mg/dl Calcium (8.4-10.2) mg/dl Magnesium (1.8-2.5) mg/dL Total Bilirubin (0.2-1.0) mg/dL AST (10-42) IU/L ALT (10-60) IU/L Alkaline Phosphatase (42-121) IU/L Troponin I (0.00-0.02) ng/ml B-Natriuretic Peptide (0-100) pg/ml Total Protein (6.7-8.2) g/dl Albumin (3.2-5.5) g/dl Globulin Albumin/Globulin Ratio Amylase (28-100) U/L Lipase (22-51) U/L Urine Color Yellow (YELLOW) Urine Appearance Slightly cloudy (CLEAR) Urine pH 7.5 (5.0-9.0) Ur Specific [place] 1.015 (1.005-1.030) Urine Protein Negative (NEGATIVE) Urine Glucose (UA) Negative (NEGATIVE) Urine Ketones Negative (NEGATIVE) Urine Occult Blood Negative (NEGATIVE) Urine Nitrite Negative (NEGATIVE) Urine Bilirubin Negative (NEGATIVE) Urine Urobilinogen 4.0 H (0.2-1.0) mg/dL Ur Leukocyte Esterase Trace H (NEGATIVE) Urine RBC 0-5 /HPF Urine WBC 5-10 H (0-5/HPF) /HPF Ur Epithelial Cells Few (NOT SEEN) /HPF Amorphous Sediment Rare (NOT SEEN) /HPF Urine Bacteria Occasional (0-FEW/HPF) /HPF Urine Mucus Few H (NOT SEEN) /LPF Meds: Medications Discontinued Medications Generic Name Dose Route Start Last Admin Trade Name Freq PRN Reason Stop Dose Admin Potassium Chloride 10 meq/ 100 mls @ 100 mls/hr 10/22/18 21:32 10/22/18 21:49 Premix IV 10/22/18 22:31 100 mls/hr ONETIME ONE Administration Sodium Chloride 500 mls @ 100 mls/hr 10/22/18 21:33 10/22/18 21:49 Normal Saline IV 10/23/18 02:32 100 mls/hr .BOLUS ONE Administration Ondansetron HCl 4 mg 10/22/18 21:32 10/22/18 21:47 Zofran IV 10/22/18 21:33 4 mg ONETIME ONE Administration Departure - Departure Time of Disposition: 22:56 Disposition: Home, Self-Care 01 Condition: Good Clinical Impression: Hypokalemia, Hyponatremia Nausea & vomiting Qualifiers: Vomiting type: bilious vomiting Qualified Code(s): R11.14 - Bilious vomiting Fall at home Qualifiers: Encounter type: initial encounter Qualified Code(s): W19.XXXA - Unspecified fall, initial encounter - Discharge Information *PRESCRIPTION DRUG MONITORING PROGRAM REVIEWED*: No *COPY OF PRESCRIPTION DRUG MONITORING REPORT IN PATIENT AARON: No Instructions: Hypokalemia, Nausea and Vomiting, Adult, [id number] Referrals: Khushboo Mei MD [Primary Care Provider] - Forms: ED Department Discharge Additional Instructions: zofran 4mg every 4 hours as needed for nausea fluids small amounts more frequently clinic follow up recheck lab on saturday use walker - My Orders Last 24 Hours: My Active Orders 10/22/18 21:02 EKG 12 Lead [EKG Documentation Completion] [RC] URGENT 10/22/18 21:26 CULTURE URINE [RM] Urgent 10/22/18 21:33 Knee 3V Lt [CR] Urgent - Assessment/Plan Last 24 Hours: My Active Orders 10/22/18 21:02 EKG 12 Lead [EKG Documentation Completion] [RC] URGENT 10/22/18 21:26 CULTURE URINE [RM] Urgent 10/22/18 21:33 Knee 3V Lt [CR] Urgent
== END 2018-10-22 23:06 | disposition home or self-care (01) ==
LOC: DL.ED 20:39
DX: E87.1 Hypo-osmolality and hyponatremia (principal); E87.6 Hypokalemia; M25.562 Pain in left knee; E11.21 Type 2 diabetes mellitus with diabetic nephropathy; I10 Essential (primary) hypertension; D64.9 Anemia, unspecified; Z79.84 Long term (current) use of oral hypoglycemic drugs; Z79.899 Other long term (current) drug therapy; Z88.5 Allergy status to narcotic agent; Z88.1 Allergy status to other antibiotic agents; Z88.0 Allergy status to penicillin; W19.XXXA Unspecified fall, initial encounter; Y92.009 Unspecified place in unspecified non-institutional (private) residence as the place of occurrence of the external cause
CPT/HCPCS: 36415; 73562; 80053; 81001; 82150; 82962; 83690; 83735; 83880; 84484; 85025; 87086; 93005; 96365; 96375; 99285; A4217; J2405; J3480; J7040

== ENCOUNTER 2019-01-21 16:24 | Emergency (ER) | payer MEDICARE, OTHER ==
[2019-01-21 16:39] VITALS: BP 125/71; PULSE 75
--- NOTE | 2019-01-21 17:22 | EDM.PDOC ---
Scribed by Cecy Jade 01/21/19 [id number] for Cecilia Johnson NP ED HPI GENERAL MEDICAL PROBLEM - General Chief Complaint: General Stated Complaint: HARD TIME BREATHING PER PT. Time Seen by Provider: 01/21/19 16:44 Source of Information: Reports: Patient, RN, RN Notes Reviewed History Limitations: Reports: No Limitations - History of Present Illness INITIAL COMMENTS - FREE TEXT/NARRATIVE: Patient presents to ER with complaint of being tired out, weakness, shaky-- began about 1 week ago. She has gotten worse. She has had a decreased appetite, chills, shortness of breath and nausea. No fever, chest pain, vomiting, diarrhea , cough, black or bloody stools. No urinary symptoms. She has history of diabetes and chronic obstructive pulmonary. Onset: Gradual Onset Date: 01/14/19 Duration: Getting Worse Location: Reports: Generalized Quality: Reports: Ache Severity: Moderate Improves with: Reports: None Worsens with: Reports: None Associated Symptoms: Reports: No Other Symptoms - Related Data Allergies Allergy/AdvReac Type Severity Reaction Status Date / Time erythromycin base Allergy Unknown Rash Verified 01/21/19 16:32 [Erythromycin Base] ampicillin AdvReac Unknown swelling Verified 01/21/19 16:32 of legs and feet codeine AdvReac Unknown dizzy and Verified 01/21/19 16:32 lightheaded Penicillins AdvReac Unknown swelling Verified 01/21/19 16:32 of legs and feet Home Meds: Home Meds Hydrochlorothiazide 50 mg PO DAILY 07/23/13 [History] Lisinopril 40 mg PO DAILY 07/23/13 [History] Tiotropium [Spiriva Handihaler] 18 mcg INH DAILY 07/23/13 [History] metFORMIN [Glucophage] 500 mg PO BID 07/23/13 [History] Aspirin [Halfprin] 81 mg PO BRK 05/11/15 [History] Sertraline [Zoloft] 100 mg PO DAILY 08/27/17 [History] Acetaminophen [Acetaminophen Extra Strength] 1,000 mg pe PO Q6HR PRN 10/13/18 [ History] Budesonide [Pulmicort] 1 vial IH BID 10/13/18 [History] Ferrous Gluconate 324 mg PO BID 10/13/18 [History] Formoterol Fumarate [Perforomist] 1 vial IH BID 10/13/18 [History] Albuterol Sulfate [Albuterol Sulfate Hfa] 8.5 gm IH DAILY 10/14/18 [History] Carboxymethylcellulose Sodium [Lubricant Eye Drops] 1 drop EYEBOTH QID PRN 10/14 [History] Cholecalciferol (Vitamin D3) [Vitamin D3] 1,000 unit PO DAILY 10/14/18 [History] Ferrous Gluconate 324 mg PO BID 10/14/18 [History] Past Medical History HEENT History: Reports: None Cardiovascular History: Reports: Hypertension Respiratory History: Reports: Asthma, COPD, SOB Gastrointestinal History: Reports: None Other Gastrointestinal History: Appendicitis 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 [employer]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: Musculoskeletal History: Reports: Arthritis Neurological History: Reports: Head Trauma Psychiatric History: Reports: Anxiety, Depression, Panic Attack Endocrine/Metabolic History: Reports: Diabetes, Type II Hematologic History: Reports: Anemia, Blood Transfusion(s) Immunologic History: Reports: None Oncologic (Cancer) History: Reports: None Dermatologic History: Reports: None - Infectious Disease History Infectious Disease History: Reports: Measles, Shingles Other Infectious Disease History: 02/12/18 recent diagnosis of shingles - Past Surgical History HEENT Surgical History: Reports: Tonsillectomy GI Surgical History: Reports: Appendectomy, Cholecystectomy Musculoskeletal Surgical History: Reports: Arthroscopic Knee Social & Family History - Family History Family Medical History: Noncontributory - Caffeine Use Caffeine Use: Reports: Coffee, Soda, Tea - Living Situation & Occupation Living situation: Reports: with Family Occupation: Retired ED ROS GENERAL - Review of Systems Review Of Systems: ROS reveals no pertinent complaints other than HPI. ED EXAM, GENERAL - Physical Exam Exam: See Below Exam Limited By: No Limitations General Appearance: Other (weak and tired) Eye Exam: Bilateral Eye: EOMI, Normal Inspection, PERRL Ears: Normal External Exam, Normal Canal, Hearing Grossly Normal, Normal TMs Nose: Normal Inspection, Normal Mucosa, No Blood Throat/Mouth: Normal Inspection, Normal Lips, Normal Teeth, Normal Gums, Normal Oropharynx, Normal Voice, No Airway Compromise Head: Atraumatic, Normocephalic Neck: Normal Inspection, Supple, Non-Tender, Full Range of Motion Respiratory/Chest: Rhonchi (decreased) Cardiovascular: Other (murmur) GI/Abdominal: Normal Bowel Sounds, Soft, Non-Tender, No Organomegaly, No Distention, No Abnormal Bruit, No Mass (Female) Exam: Deferred Rectal (Female) Exam: Deferred Back Exam: Normal Inspection, Full Range of Motion, NT Extremities: Normal Inspection, Normal Range of Motion, Non-Tender, Normal Capillary Refill, No Pedal Edema Neurological: Alert, Oriented, CN II-XII Intact, Normal Cognition, Normal Gait, Normal Reflexes, No Motor/Sensory Deficits Psychiatric: Normal Affect, Normal Mood Skin Exam: Warm, Dry, Intact, Normal Color, No Rash Lymphatic: No Adenopathy Course - Vital Signs Last Recorded V/S: Last Vital Signs Temp 97.8 F 01/21/19 16:33 Pulse 75 01/21/19 16:33 Resp 14 01/21/19 16:33 BP 125/71 01/21/19 16:33 Pulse Ox 96 01/21/19 16:33 - Orders/Labs/Meds Orders: Active Orders 24 hr Category Date Time Status EKG Documentation Completion [RC] STAT Care 01/21/19 16:43 Active EKG Documentation Completion [RC] STAT Care 01/21/19 16:43 Inactive Chest 1V Frontal [CR] Stat Exams 01/21/19 16:43 Taken CULTURE BLOOD [BC] Stat Lab 01/21/19 17:03 Received CULTURE BLOOD [BC] Stat Lab 01/21/19 17:08 Received CULTURE URINE [RM] Stat Lab 01/21/19 16:43 Received Blood Culture x2 Reflex Set [OM.PC] Stat Oth 01/21/19 16:44 Ordered Labs: Laboratory Tests 01/21/19 01/21/19 01/21/19 Range/Units 16:43 17:03 17:03 WBC 5.3 (5.0-10.0) 10^3/uL RBC 3.91 L (4.2-5.4) 10^6/uL Hgb 11.6 L (12.0-16.0) g/dL Hct 34.6 L (37.0-47.0) % MCV 88.5 (80-100) fL MCH 29.7 (27.0-34.0) pg MCHC 33.5 (33.0-35.0) g/dL Plt Count 242 (150-450) 10^3/uL Neut % (Auto) 48.2 (42.2-75.2) % Lymph % (Auto) 35.0 (20.5-50.1) % [place] % (Auto) 13.7 H (2-8) % Eos % (Auto) 2.9 (1.0-3.0) % Baso % (Auto) 0.2 (0.0-1.0) % Sodium 135 (135-145) mmol/L Potassium 4.4 (3.6-5.0) mmol/L Chloride 100 L (101-111) mmol/L Carbon Dioxide 27.0 (21.0-31.0) mmol/L Anion Gap 12.4 BUN 23 H (7-18) mg/dL Creatinine 0.8 (0.6-1.3) mg/dL Est Cr Clr Drug Dosing 47.94 mL/min Estimated GFR (MDRD) > 60 BUN/Creatinine Ratio 28.75 Glucose 121 H (74-105) mg/dL Lactic Acid (0.5-2.2) mmol/L Calcium 9.1 (8.4-10.2) mg/dl Total Bilirubin 0.9 (0.2-1.0) mg/dL AST 36 (10-42) IU/L ALT 25 (10-60) IU/L Alkaline Phosphatase 66 (42-121) IU/L Troponin I 0.02 (0.00-0.02) ng/ml B-Natriuretic Peptide 11 (0-100) pg/ml Total Protein 7.2 (6.7-8.2) g/dl Albumin 3.7 (3.2-5.5) g/dl Globulin 3.5 Albumin/Globulin Ratio 1.06 Urine Color Yellow (YELLOW) Urine Appearance Slightly cloudy (CLEAR) Urine pH 5.5 (5.0-9.0) Ur Specific [place] 1.025 (1.005-1.030) Urine Protein Negative (NEGATIVE) Urine Glucose (UA) Negative (NEGATIVE) Urine Ketones Negative (NEGATIVE) Urine Occult Blood Negative (NEGATIVE) Urine Nitrite Negative (NEGATIVE) Urine Bilirubin Negative (NEGATIVE) Urine Urobilinogen 1.0 (0.2-1.0) mg/dL Ur Leukocyte Esterase Trace H (NEGATIVE) Urine RBC 0-5 /HPF Urine WBC 5-10 H (0-5/HPF) /HPF Ur Epithelial Cells Few (NOT SEEN) /HPF Amorphous Sediment Few (NOT SEEN) /HPF Urine Bacteria Few (0-FEW/HPF) /HPF Urine Mucus Rare (NOT SEEN) /LPF 01/21/19 Range/Units 17:03 WBC (5.0-10.0) 10^3/uL RBC (4.2-5.4) 10^6/uL Hgb (12.0-16.0) g/dL Hct (37.0-47.0) % MCV (80-100) fL MCH (27.0-34.0) pg MCHC (33.0-35.0) g/dL Plt Count (150-450) 10^3/uL Neut % (Auto) (42.2-75.2) % Lymph % (Auto) (20.5-50.1) % [place] % (Auto) (2-8) % Eos % (Auto) (1.0-3.0) % Baso % (Auto) (0.0-1.0) % Sodium (135-145) mmol/L Potassium (3.6-5.0) mmol/L Chloride (101-111) mmol/L Carbon Dioxide (21.0-31.0) mmol/L Anion Gap BUN (7-18) mg/dL Creatinine (0.6-1.3) mg/dL Est Cr Clr Drug Dosing mL/min Estimated GFR (MDRD) BUN/Creatinine Ratio Glucose (74-105) mg/dL Lactic Acid 2.2 (0.5-2.2) mmol/L Calcium (8.4-10.2) mg/dl Total Bilirubin (0.2-1.0) mg/dL AST (10-42) IU/L ALT (10-60) IU/L Alkaline Phosphatase (42-121) IU/L Troponin I (0.00-0.02) ng/ml B-Natriuretic Peptide (0-100) pg/ml Total Protein (6.7-8.2) g/dl Albumin (3.2-5.5) g/dl Globulin Albumin/Globulin Ratio Urine Color (YELLOW) Urine Appearance (CLEAR) Urine pH (5.0-9.0) Ur Specific [place] (1.005-1.030) Urine Protein (NEGATIVE) Urine Glucose (UA) (NEGATIVE) Urine Ketones (NEGATIVE) Urine Occult Blood (NEGATIVE) Urine Nitrite (NEGATIVE) Urine Bilirubin (NEGATIVE) Urine Urobilinogen (0.2-1.0) mg/dL Ur Leukocyte Esterase (NEGATIVE) Urine RBC /HPF Urine WBC (0-5/HPF) /HPF Ur Epithelial Cells (NOT SEEN) /HPF Amorphous Sediment (NOT SEEN) /HPF Urine Bacteria (0-FEW/HPF) /HPF Urine Mucus (NOT SEEN) /LPF - Radiology Interpretation Free Text/Narrative:: Chest xray: FINDINGS: Lungs: Well inflated lungs consistent with COPD. Pleural space: Unremarkable. No pleural effusion. No pneumothorax. Heart/Mediastinum: Uncoiled thoracic aorta. Bones/joints: Osteoporosis. IMPRESSION: No acute findings. Thank you for allowing us to participate in the care of your patient. Dictated and Authenticated by: Ta Silvestre MD 01/21/2019 5:17 PM Central Time ([place] & [place]) See rad report Departure - Departure Time of Disposition: 17:47 Disposition: Home, Self-Care 01 Condition: Fair Clinical Impression: Viral illness - Discharge Information *PRESCRIPTION DRUG MONITORING PROGRAM REVIEWED*: No *COPY OF PRESCRIPTION DRUG MONITORING REPORT IN PATIENT AARON: No Instructions: Viral Illness, Adult, Dehydration, Elderly, [id number] Forms: ED Department Discharge Additional Instructions: Drink plenty of fluids Rest May use Tylenol and/or Ibuprofen as directed Follow up with your primary care facility if no improvement - My Orders Last 24 Hours: My Active Orders 01/21/19 16:43 EKG Documentation Completion [RC] STAT EKG Documentation Completion [RC] STAT Chest 1V Frontal [CR] Stat CULTURE URINE [RM] Stat 01/21/19 16:44 Blood Culture x2 Reflex Set [OM.PC] Stat 01/21/19 17:03 CULTURE BLOOD [BC] Stat 01/21/19 17:08 CULTURE BLOOD [BC] Stat - Assessment/Plan Last 24 Hours: My Active Orders 01/21/19 16:43 EKG Documentation Completion [RC] STAT EKG Documentation Completion [RC] STAT Chest 1V Frontal [CR] Stat CULTURE URINE [RM] Stat 01/21/19 16:44 Blood Culture x2 Reflex Set [OM.PC] Stat 01/21/19 17:03 CULTURE BLOOD [BC] Stat 01/21/19 17:08 CULTURE BLOOD [BC] Stat I have read and agree with the documentation that has been completed regarding this visit. By signing this record, I attest that the documentation was completed in my physical presence and is an accurate record of the encounter.
[2019-01-21 17:34] LABS: ANION GAP 12.4; CHLORIDE,CL 100 mmol/L (101-111); SODIUM,NA 135 mmol/L (135-145)
== END 2019-01-21 17:53 | disposition home or self-care (01) ==
LOC: DL.ED 16:24
DX: B34.9 Viral infection, unspecified (principal); I10 Essential (primary) hypertension; J44.9 Chronic obstructive pulmonary disease, unspecified; E11.21 Type 2 diabetes mellitus with diabetic nephropathy; M19.90 Unspecified osteoarthritis, unspecified site; F32.9 Major depressive disorder, single episode, unspecified; F41.0 Panic disorder [episodic paroxysmal anxiety]; D64.9 Anemia, unspecified; Z88.1 Allergy status to other antibiotic agents; Z88.5 Allergy status to narcotic agent; Z88.0 Allergy status to penicillin; Z79.82 Long term (current) use of aspirin; Z79.84 Long term (current) use of oral hypoglycemic drugs; Z79.899 Other long term (current) drug therapy
CPT/HCPCS: 36415; 71045; 80053; 81001; 83605; 83880; 84484; 85025; 87040; 87086; 93005; 99285-25

== ENCOUNTER 2019-04-08 18:01 | Emergency (ER) | payer MEDICARE, OTHER ==
[2019-04-08 18:10] VITALS: BP 136/72; PULSE 66
[2019-04-08 18:59] LABS: ANION GAP 10.2; CHLORIDE,CL 102 mmol/L (101-111); SODIUM,NA 133 mmol/L (135-145)
--- NOTE | 2019-04-08 19:52 | EDM.PDOC ---
ED HPI GENERAL MEDICAL PROBLEM - General Chief Complaint: Syncope Stated Complaint: AMBULANCE Time Seen by Provider: 04/08/19 19:00 Source of Information: Reports: Patient, RN, RN Notes Reviewed History Limitations: Reports: No Limitations - History of Present Illness INITIAL COMMENTS - FREE TEXT/NARRATIVE: patient presents to ER with complaint of syncopal episode at home. Patient states she was sitting in her recliner, she thinks she was going to get up t something to eat, and the next thing she knew she woke up on the floor. Patient denies hitting her head. Patient states she is diabetic but her blood sugar was checked and was fine. Patient states this has been happening frequently. Patient was seen in the ER in December with similar episode, she states she has followed up with her primary care provider in the clinic, and has been referred to neurology in [place] in April. Patient denies chest pains or shortness of breath, headaches, nausea, vomiting, diarrhea. Patient denies any pain at this time. Onset: Today, Sudden Duration: Intermittent - Related Data Allergies Allergy/AdvReac Type Severity Reaction Status Date / Time erythromycin base Allergy Unknown Rash Verified 01/21/19 16:32 [Erythromycin Base] ampicillin AdvReac Unknown swelling Verified 01/21/19 16:32 of legs and feet codeine AdvReac Unknown dizzy and Verified 01/21/19 16:32 lightheaded Penicillins AdvReac Unknown swelling Verified 01/21/19 16:32 of legs and feet Home Meds: Home Meds Hydrochlorothiazide 50 mg PO DAILY 07/23/13 [History] Lisinopril 40 mg PO DAILY 07/23/13 [History] Tiotropium [Spiriva Handihaler] 18 mcg INH DAILY 07/23/13 [History] metFORMIN [Glucophage] 500 mg PO BID 07/23/13 [History] Aspirin [Halfprin] 81 mg PO BRK 05/11/15 [History] Sertraline [Zoloft] 100 mg PO DAILY 08/27/17 [History] Acetaminophen [Acetaminophen Extra Strength] 1,000 mg pe PO Q6HR PRN 10/13/18 [ History] Budesonide [Pulmicort] 1 vial IH BID 10/13/18 [History] Formoterol Fumarate [Perforomist] 2 ml IH BID 10/13/18 [History] Albuterol Sulfate [Albuterol Sulfate Hfa] 1 puff IH DAILY PRN 10/14/18 [History] Carboxymethylcellulose Sodium [Lubricant Eye Drops] 1 drop EYEBOTH QID PRN 10/14 [History] Cholecalciferol (Vitamin D3) [Vitamin D3] 1,000 unit PO DAILY 10/14/18 [History] Ferrous Gluconate 324 mg PO BID 10/14/18 [History] Past Medical History HEENT History: Reports: None Cardiovascular History: Reports: Hypertension Respiratory History: Reports: Asthma, COPD, SOB Gastrointestinal History: Reports: None Other Gastrointestinal History: Appendicitis 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 [employer]ATOR History: Reports: Musculoskeletal History: Reports: Arthritis Neurological History: Reports: Head Trauma Psychiatric History: Reports: Anxiety, Depression, Panic Attack Endocrine/Metabolic History: Reports: Diabetes, Type II Hematologic History: Reports: Anemia, Blood Transfusion(s) Immunologic History: Reports: None Oncologic (Cancer) History: Reports: None Dermatologic History: Reports: None - Infectious Disease History Infectious Disease History: Reports: Measles, Shingles Other Infectious Disease History: 02/12/18 recent diagnosis of shingles - Past Surgical History HEENT Surgical History: Reports: Tonsillectomy GI Surgical History: Reports: Appendectomy, Cholecystectomy Musculoskeletal Surgical History: Reports: Arthroscopic Knee Social & Family History - Family History Family Medical History: Noncontributory - Tobacco Use Smoking Status *Q: Never Smoker - Caffeine Use Caffeine Use: Reports: Coffee - Recreational Drug Use Recreational Drug Use: No - Living Situation & Occupation Living situation: Reports: with Family Occupation: Retired ED ROS GENERAL - Review of Systems Review Of Systems: Comprehensive ROS is negative, except as noted in HPI. - Physical Exam Exam: See Below Exam Limited By: No Limitations General Appearance: Alert, WD/WN, No Apparent Distress Eye Exam: Bilateral Eye: EOMI, Normal Inspection, PERRL (2, brisk) Ears: Normal External Exam, Hearing Grossly Normal Nose: Normal Inspection Throat/Mouth: Normal Inspection, Normal Voice, No Airway Compromise Head Exam: Atraumatic, Normocephalic Neck: Normal Inspection, Supple, Non-Tender, Full Range of Motion Respiratory/Chest: No Respiratory Distress, Lungs Clear, Normal Breath Sounds, No Accessory Muscle Use, Chest Non-Tender Cardiovascular: Normal Peripheral Pulses, Regular Rate, Rhythm, No Edema, No Gallop, No JVD, No Murmur, No Rub GI/Abdominal: Normal Bowel Sounds, Soft, Non-Tender, No Organomegaly, No Distention, No Abnormal Bruit, No Mass (Female) Exam: Deferred Rectal (Female) Exam: Deferred Neuro Exam (Abbreviated): Alert, Oriented, CN II-XII Intact, Normal Cognition, Normal Reflexes, No Motor/Sensory Deficits, Abnormal Gait (somewhat unsteady) Back Exam: Normal Inspection, Full Range of Motion Extremities: Normal Inspection, Normal Range of Motion, Non-Tender, No Pedal Edema, Normal Capillary Refill Psychiatric: Normal Affect, Normal Mood Skin Exam: Warm, Dry, Intact, Normal Color, No Rash EKG INTERPRETATION Time: 18:15 Rhythm: NSR Rate (Beats/Min): 66 [place]: Normal P-Wave: Present QRS: RBBB Course - Vital Signs Last Recorded V/S: Last Vital Signs Temp 97.8 F 04/08/19 18:05 Pulse 66 04/08/19 18:05 Resp 20 04/08/19 18:05 BP 136/72 04/08/19 18:05 Pulse Ox 99 04/08/19 18:05 - Orders/Labs/Meds Orders: Active Orders 24 hr Category Date Time Status EKG Documentation Completion [RC] URGENT Care 04/08/19 18:12 Active CULTURE URINE [RM] Urgent Lab 04/08/19 19:21 Received Labs: Laboratory Tests 04/08/19 04/08/19 04/08/19 Range/Units 18:28 18:28 19:21 WBC 4.6 L (5.0-10.0) 10^3/uL RBC 3.69 L (4.2-5.4) 10^6/uL Hgb 10.9 L (12.0-16.0) g/dL Hct 32.5 L (37.0-47.0) % MCV 88.1 (80-100) fL MCH 29.5 (27.0-34.0) pg MCHC 33.5 (33.0-35.0) g/dL Plt Count 222 (150-450) 10^3/uL Neut % (Auto) 50.8 (42.2-75.2) % Lymph % (Auto) 28.9 (20.5-50.1) % [place] % (Auto) 17.5 H (2-8) % Eos % (Auto) 2.6 (1.0-3.0) % Baso % (Auto) 0.2 (0.0-1.0) % Sodium 133 L (135-145) mmol/L Potassium 4.2 (3.6-5.0) mmol/L Chloride 102 (101-111) mmol/L Carbon Dioxide 25.0 (21.0-31.0) mmol/L Anion Gap 10.2 BUN 24 H (7-18) mg/dL Creatinine 0.8 (0.6-1.3) mg/dL Est Cr Clr Drug Dosing 47.17 mL/min Estimated GFR (MDRD) > 60 BUN/Creatinine Ratio 30.00 Glucose 104 (74-105) mg/dL Calcium 9.1 (8.4-10.2) mg/dl Total Bilirubin 0.5 (0.2-1.0) mg/dL AST 33 (10-42) IU/L ALT 26 (10-60) IU/L Alkaline Phosphatase 83 (42-121) IU/L Troponin I < 0.02 (0.00-0.02) ng/ml Total Protein 7.0 (6.7-8.2) g/dl Albumin 3.7 (3.2-5.5) g/dl Globulin 3.3 Albumin/Globulin Ratio 1.12 Urine Color Yellow (YELLOW) Urine Appearance Slightly cloudy (CLEAR) Urine pH 6.0 (5.0-9.0) Ur Specific [place] 1.025 (1.005-1.030) Urine Protein Negative (NEGATIVE) Urine Glucose (UA) Negative (NEGATIVE) Urine Ketones Negative (NEGATIVE) Urine Occult Blood Negative (NEGATIVE) Urine Nitrite Negative (NEGATIVE) Urine Bilirubin Negative (NEGATIVE) Urine Urobilinogen 0.2 (0.2-1.0) mg/dL Ur Leukocyte Esterase Trace H (NEGATIVE) Urine RBC 0-5 /HPF Urine WBC 20-30 H (0-5/HPF) /HPF Ur Epithelial Cells Few (NOT SEEN) /HPF Amorphous Sediment Occasional (NOT SEEN) /HPF Urine Bacteria Few (0-FEW/HPF) /HPF Urine Mucus Rare (NOT SEEN) /LPF Meds: Medications Discontinued Medications Generic Name Dose Route Start Last Admin Trade Name Freq PRN Reason Stop Dose Admin Nitrofurantoin Macrocrystals 100 mg 04/08/19 20:19 04/08/19 20:55 Macrobid PO 04/08/19 20:20 100 mg ONETIME ONE Administration - Radiology Interpretation Free Text/Narrative:: Chest xray: FINDINGS: Lungs: Lung aeration and architecture is normal. Pleural space: The pleural surfaces are normal. There are no signs of effusion or pneumothorax. Heart/Mediastinum: The heart and mediastinum are normal for AP technique. Bones/joints: Normal IMPRESSION: Normal, no change. Thank you for allowing us to participate in the care of your patient. Dictated and Authenticated by: Lm Sheridan MD 04/08/2019 6:54 PM Central Time ([place] & [place]) Head CT wo contrast: FINDINGS: Brain: No acute intracranial hemorrhage. No acute infarct. No intra-axial or extra-axial masses. Graywhite matter differentiation is preserved. No cerebral edema. No extra-axial fluid collections. The cerebellar tonsils extend to just below the level of the foramen magnum. Midline shift: No midline shift. Ventricles: No hydrocephalus. Bones/joints: No acute fracture. Sinuses: Visualized paranasal sinuses are clear. Mastoid air cells: Unremarkable as visualized. Orbits: Globes and lenses, extraocular muscles, and optic nerves are intact bilaterally. No acute intraorbital abnormality. Soft tissues: The extracranial soft tissues are unremarkable. IMPRESSION: 1. No acute abnormality of the brain. 2. Low-lying cerebellar tonsils. 3. Incidental/nonacute findings are listed in the report. Thank you for allowing us to participate in the care of your patient. Dictated and Authenticated by: Lucía Mohamud MD 04/08/2019 8:44 PM Central Time ([place] & [place]) See rad report Departure - Departure Time of Disposition: 20:57 Disposition: Home, Self-Care 01 Condition: Fair Clinical Impression: UTI (urinary tract infection), uncomplicated Episode of syncope Qualifiers: Syncope type: unspecified Qualified Code(s): R55 - Syncope and collapse - Discharge Information *PRESCRIPTION DRUG MONITORING PROGRAM REVIEWED*: No *COPY OF PRESCRIPTION DRUG MONITORING REPORT IN PATIENT AARON: No Instructions: Urinary Tract Infection, Adult, [id number], Syncope, Easy-to- Read Referrals: Khushboo Mei MD [Primary Care Provider] - Forms: ED Department Discharge Additional Instructions: Drink plenty of water RX: Macrobid 100mg orally twice daily for 7 days Follow up with your primary care facility Return to the ER with any further problems Follow up with your Neurology referral in April Sepsis Event Note - Evaluation Sepsis Screening Result: No Definite Risk - Focused Exam Vital Signs: Vital Signs Temp Pulse Resp BP Pulse Ox 04/08/19 18:05 97.8 F 66 20 136/72 99 Date Exam was Performed: 04/08/19 Time Exam was Performed: 22:13
[2019-04-08] MEDS ORDERED: Nitrofurantoin Monohydrate/Macrocrystalline 100 MG Cap PO ONE (20:19)
== END 2019-04-08 21:06 | disposition home or self-care (01) ==
LOC: DL.ED 18:01
DX: N39.0 Urinary tract infection, site not specified (principal); I10 Essential (primary) hypertension; E11.40 Type 2 diabetes mellitus with diabetic neuropathy, unspecified; J44.9 Chronic obstructive pulmonary disease, unspecified; Z79.899 Other long term (current) drug therapy; Z79.82 Long term (current) use of aspirin; Z79.51 Long term (current) use of inhaled steroids; Z79.84 Long term (current) use of oral hypoglycemic drugs
CPT/HCPCS: 36415; 70450; 71045; 80053; 81001; 82962; 84484; 85025; 87086; 87088; 87186; 93005; 99285; A9270

== ENCOUNTER 2019-10-03 21:55 | Emergency (ER) | payer MEDICARE, OTHER ==
--- NOTE | 2019-10-03 22:02 | EDM.PDOC ---
ED HPI GENERAL MEDICAL PROBLEM - General Chief Complaint: Respiratory Problem Stated Complaint: AMBULANCE Time Seen by Provider: 10/03/19 21:59 Source of Information: Reports: Patient, EMS History Limitations: Reports: No Limitations - History of Present Illness INITIAL COMMENTS - FREE TEXT/NARRATIVE: EMS arrived at scene pt alert with O2 sat 90s, family states pt was breathing hard and not responding. pt states no CP but SOB tonight denies being upset but got anxious form SOB. - Related Data Allergies Allergy/AdvReac Type Severity Reaction Status Date / Time erythromycin base Allergy Unknown Rash Verified 01/21/19 16:32 [Erythromycin Base] ampicillin AdvReac Unknown swelling Verified 01/21/19 16:32 of legs and feet codeine AdvReac Unknown dizzy and Verified 01/21/19 16:32 lightheaded Penicillins AdvReac Unknown swelling Verified 01/21/19 16:32 of legs and feet Home Meds: Home Meds Hydrochlorothiazide 50 mg PO DAILY 07/23/13 [History] Lisinopril 40 mg PO DAILY 07/23/13 [History] Tiotropium [Spiriva Handihaler] 18 mcg INH DAILY 07/23/13 [History] metFORMIN [Glucophage] 500 mg PO BID 07/23/13 [History] Aspirin [Halfprin] 81 mg PO BRK 05/11/15 [History] Sertraline [Zoloft] 100 mg PO DAILY 08/27/17 [History] Acetaminophen [Acetaminophen Extra Strength] 1,000 mg pe PO Q6HR PRN 10/13/18 [ History] Budesonide [Pulmicort] 1 vial IH BID 10/13/18 [History] Formoterol Fumarate [Perforomist] 2 ml IH BID 10/13/18 [History] Albuterol Sulfate [Albuterol Sulfate Hfa] 1 puff IH DAILY PRN 10/14/18 [History] Carboxymethylcellulose Sodium [Lubricant Eye Drops] 1 drop EYEBOTH QID PRN 10/14 [History] Cholecalciferol (Vitamin D3) [Vitamin D3] 1,000 unit PO DAILY 10/14/18 [History] Ferrous Gluconate 324 mg PO BID 10/14/18 [History] Past Medical History HEENT History: Reports: None Cardiovascular History: Reports: Hypertension Respiratory History: Reports: Asthma, COPD, SOB Gastrointestinal History: Reports: None Other Gastrointestinal History: Appendicitis 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 [employer]IAN History: Reports: Musculoskeletal History: Reports: Arthritis Neurological History: Reports: Head Trauma Psychiatric History: Reports: Anxiety, Depression, Panic Attack Endocrine/Metabolic History: Reports: Diabetes, Type II Hematologic History: Reports: Anemia, Blood Transfusion(s) Immunologic History: Reports: None Oncologic (Cancer) History: Reports: None Dermatologic History: Reports: None - Infectious Disease History Infectious Disease History: Reports: Measles, Shingles Other Infectious Disease History: 02/12/18 recent diagnosis of shingles - Past Surgical History HEENT Surgical History: Reports: Tonsillectomy GI Surgical History: Reports: Appendectomy, Cholecystectomy Musculoskeletal Surgical History: Reports: Arthroscopic Knee Social & Family History - Family History Family Medical History: Noncontributory - Caffeine Use Caffeine Use: Reports: Coffee - Living Situation & Occupation Living situation: Reports: with Family Occupation: Retired ED ROS GENERAL - Review of Systems Review Of Systems: Comprehensive ROS is negative, except as noted in HPI. ED EXAM, GENERAL - Physical Exam Exam: See Below Exam Limited By: No Limitations General Appearance: Alert, WD/WN, Anxious, Mild Distress Ears: Hearing Grossly Normal Throat/Mouth: Normal Voice, No Airway Compromise Head: Atraumatic Neck: Non-Tender, Full Range of Motion Respiratory/Chest: Rhonchi. No: Decreased Breath Sounds Cardiovascular: Regular Rate, Rhythm GI/Abdominal: Soft, Non-Tender Extremities: No Pedal Edema Neurological: Alert, Oriented, Normal Cognition, No Motor/Sensory Deficits Psychiatric: Anxious Skin Exam: Warm, Dry, Normal Color Lymphatic: No Adenopathy Course - Vital Signs Last Recorded V/S: Last Vital Signs Temp 36.3 C 10/03/19 22:04 Pulse 85 10/03/19 22:04 Resp 24 H 10/03/19 22:04 BP 130/77 10/03/19 22:04 Pulse Ox 100 10/03/19 22:04 - Orders/Labs/Meds Orders: Active Orders 24 hr Category Date Time Status EKG 12 Lead [EKG Documentation Completion] [RC] STAT Care 10/03/19 21:58 Active Labs: Laboratory Tests 10/03/19 10/03/19 10/03/19 Range/Units 22:11 22:11 22:11 WBC 5.1 (5.0-10.0) 10^3/uL RBC 4.14 L (4.2-5.4) 10^6/uL Hgb 12.0 (12.0-16.0) g/dL Hct 35.4 L (37.0-47.0) % MCV 85.5 (80-100) fL MCH 29.0 (27.0-34.0) pg MCHC 33.9 (33.0-35.0) g/dL Plt Count 255 (150-450) 10^3/uL Neut % (Auto) 41.6 L (42.2-75.2) % Lymph % (Auto) 33.3 (20.5-50.1) % [place] % (Auto) 21.6 H (2-8) % Eos % (Auto) 3.1 H (1.0-3.0) % Baso % (Auto) 0.4 (0.0-1.0) % Sodium 131 L (136-145) mmol/L Potassium 4.5 (3.5-5.1) mmol/L Chloride 95 L (98-107) mmol/L Carbon Dioxide 26 (21-32) mmol/L Anion Gap 14.5 H (7-13) mEq/L BUN 20 H (7-18) mg/dL Creatinine 1.01 (0.55-1.02) mg/dL Est Cr Clr Drug Dosing 34.08 mL/min Estimated GFR (MDRD) 53 BUN/Creatinine Ratio 19.8 (No establ ref range) Glucose 107 H (74-99) mg/dL Lactic Acid 1.8 (0.4-2.0) mmol/L Calcium 8.7 (8.5-10.1) mg/dL Total Bilirubin 0.6 (0.2-1.0) mg/dL AST 55 H (15-37) U/L ALT 60 H (14-59) U/L Alkaline Phosphatase 100 (46-116) U/L Troponin I < 0.017 (0.000-0.056) ng/mL B-Natriuretic Peptide 14 (0-100) pg/ml Total Protein 7.3 (6.4-8.2) g/dL Albumin 3.5 (3.4-5.0) g/dL Globulin 3.8 Albumin/Globulin Ratio 0.9 - Re-Assessments/Exams Free Text/Narrative Re-Assessment/Exam: 10/03/19 23:19 results discussed with pt who is feeling good now. states sometimes she gets these spells of SOB then it goes away. Departure - Departure Time of Disposition: 23:20 Disposition: Home, Self-Care 01 Condition: Good Clinical Impression: COLD, Chronic obstructive lung disease, Anxiety - Discharge Information Forms: ED Department Discharge Additional Instructions: 1) rest and avoid vigorous activities 2) recheck if there is any change or concern 3) follow up at clinic Sepsis Event Note - Focused Exam Vital Signs: Vital Signs Temp Pulse Resp BP Pulse Ox 10/03/19 22:04 36.3 C 85 24 H 130/77 100 Date Exam was Performed: 10/03/19 Time Exam was Performed: 23:19 - My Orders Last 24 Hours: My Active Orders 10/03/19 21:58 EKG 12 Lead [EKG Documentation Completion] [RC] STAT - Assessment/Plan Last 24 Hours: My Active Orders 10/03/19 21:58 EKG 12 Lead [EKG Documentation Completion] [RC] STAT
[2019-10-03 22:05] VITALS: BP 130/77; PULSE 85
[2019-10-03 22:42] LABS: ANION GAP 14.5 mEq/L (7-13); CHLORIDE,CL 95 mmol/L (98-107); SODIUM,NA 131 mmol/L (136-145)
--- NOTE | 2019-10-03 22:52 | CR ---
PROCEDURE INFORMATION: Exam: XR Chest, 1 View Exam date and time: 10/03/2019 10:45 PM Age: 79 years old Clinical indication: Shortness of breath; Additional info: SOB TECHNIQUE: Imaging protocol: XR of the chest Views: 1 view. COMPARISON: CR Chest 1V Frontal 04/08/2019 6:24 PM FINDINGS: Lungs: Unremarkable. No consolidation. Pleural space: Unremarkable. No pleural effusion. No pneumothorax. Heart/Mediastinum: Unremarkable. No cardiomegaly. Bones/joints: Unremarkable. IMPRESSION: No acute findings.
== END 2019-10-03 23:30 | disposition home or self-care (01) ==
LOC: DL.ED 21:55
DX: J44.9 Chronic obstructive pulmonary disease, unspecified (principal); J00 Acute nasopharyngitis [common cold]; F41.9 Anxiety disorder, unspecified; I10 Essential (primary) hypertension; F32.9 Major depressive disorder, single episode, unspecified; E11.21 Type 2 diabetes mellitus with diabetic nephropathy; M19.90 Unspecified osteoarthritis, unspecified site; Z88.1 Allergy status to other antibiotic agents; Z88.5 Allergy status to narcotic agent; Z88.0 Allergy status to penicillin; Z79.899 Other long term (current) drug therapy; Z79.82 Long term (current) use of aspirin; Z79.84 Long term (current) use of oral hypoglycemic drugs
CPT/HCPCS: 36415; 71045; 80053; 83605; 83880; 84484; 85025; 93005; 99283; 99285-25

== ENCOUNTER 2020-01-29 17:11 | Emergency (ER) | payer MEDICARE, OTHER ==
--- NOTE | 2020-01-29 17:17 | EDM.PDOC ---
ED HPI GENERAL MEDICAL PROBLEM - General Chief Complaint: Respiratory Problem Stated Complaint: Shortness of breath Time Seen by Provider: 01/29/20 17:17 Source of Information: Reports: Patient, EMS, Old Records, RN, RN Notes Reviewed History Limitations: Reports: No Limitations - History of Present Illness INITIAL COMMENTS - FREE TEXT/NARRATIVE: Pt arrives to the ER from home with complaints of worsening shortness of breath for about 2 to 3 weeks. She reports Hx of COPD. She is fearful that she could have COVID, but is unaware of any COVID exposures. Also c/o increased anxiety. Denies fever, loss of taste/smell, edema, or chest pain. Admits to wheezing. She as been using her nebulizer twice a day, but isn't sure what medicine is in it. 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 Treatments - Related Data Allergies Allergy/AdvReac Type Severity Reaction Status Date / Time erythromycin base Allergy Unknown Rash Verified 01/21/19 16:32 [Erythromycin Base] ampicillin AdvReac Unknown swelling Verified 01/21/19 16:32 of legs and feet codeine AdvReac Unknown dizzy and Verified 01/21/19 16:32 lightheaded Penicillins AdvReac Unknown swelling Verified 01/21/19 16:32 of legs and feet Home Meds: Home Meds Hydrochlorothiazide 50 mg PO DAILY 07/23/13 [History] Lisinopril 40 mg PO DAILY 07/23/13 [History] Tiotropium [Spiriva Handihaler] 18 mcg INH DAILY 07/23/13 [History] metFORMIN [Glucophage] 500 mg PO BID 07/23/13 [History] Aspirin [Halfprin] 81 mg PO BRK 05/11/15 [History] Sertraline [Zoloft] 100 mg PO DAILY 08/27/17 [History] Acetaminophen [Acetaminophen Extra Strength] 1,000 mg pe PO Q6HR PRN 10/13/18 [History] Budesonide [Pulmicort] 1 vial IH BID 10/13/18 [History] Formoterol Fumarate [Perforomist] 2 ml IH BID 10/13/18 [History] Albuterol Sulfate [Albuterol Sulfate Hfa] 1 puff IH DAILY PRN 10/14/18 [History] Carboxymethylcellulose Sodium [Lubricant Eye Drops] 1 drop EYEBOTH QID PRN 10/14/18 [History] Cholecalciferol (Vitamin D3) [Vitamin D3] 1,000 unit PO DAILY 10/14/18 [History] Ferrous Gluconate 324 mg PO BID 10/14/18 [History] Past Medical History HEENT History: Reports: None Cardiovascular History: Reports: Hypertension Respiratory History: Reports: Asthma, COPD, SOB Gastrointestinal History: Reports: None Other Gastrointestinal History: Appendicitis 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: Musculoskeletal History: Reports: Arthritis Neurological History: Reports: Head Trauma Psychiatric History: Reports: Anxiety, Depression, Panic Attack Endocrine/Metabolic History: Reports: Diabetes, Type II Hematologic History: Reports: Anemia, Blood Transfusion(s) Immunologic History: Reports: None Oncologic (Cancer) History: Reports: None Dermatologic History: Reports: None - Infectious Disease History Infectious Disease History: Reports: Measles, Shingles Other Infectious Disease History: 02/12/18 recent diagnosis of shingles - Past Surgical History HEENT Surgical History: Reports: Tonsillectomy GI Surgical History: Reports: Appendectomy, Cholecystectomy Musculoskeletal Surgical History: Reports: Arthroscopic Knee Social & Family History - Family History Family Medical History: Noncontributory - Caffeine Use Caffeine Use: Reports: Coffee - Living Situation & Occupation Living situation: Reports: with Family Occupation: Retired ED ROS GENERAL - Review of Systems Review Of Systems: Comprehensive ROS is negative, except as noted in HPI. ED EXAM, GENERAL - Physical Exam Exam: See Below Exam Limited By: No Limitations General Appearance: Alert, No Apparent Distress, Anxious, Other (Non-toxic appearing elderly female.) Eye Exam: Bilateral Eye: EOMI, Normal Inspection, PERRL Ears: Hearing Grossly Normal Nose: Normal Inspection, Normal Mucosa, No Blood. No: Nasal Drainage, Clear Rhinorrhea Throat/Mouth: Normal Inspection, Normal Lips, Normal Voice, No Airway Compromise. No: Perioral Cyanosis Head: Atraumatic, Normocephalic Neck: Normal Inspection, Supple, Non-Tender, Full Range of Motion Respiratory/Chest: No Respiratory Distress, No Accessory Muscle Use, Chest Non- Tender, Decreased Breath Sounds, Crackles, Wheezing. No: Rales, Rhonchi, Stridor Cardiovascular: Regular Rate, Rhythm, No Edema GI/Abdominal: Normal Bowel Sounds, Soft, Non-Tender, No Organomegaly, No Distent ion, No Abnormal Bruit, No Mass Back Exam: Normal Inspection Extremities: Normal Inspection, Normal Range of Motion, Non-Tender, Normal Capillary Refill, No Pedal Edema Neurological: Alert, Oriented, CN II-XII Intact, Normal Cognition, No Motor/Sensory Deficits Psychiatric: Anxious Skin Exam: Warm, Dry, Intact, Normal Color, No Rash EKG INTERPRETATION EKG Date: 01/29/20 Time: 18:09 Rhythm: Other (SR) Rate (Beats/Min): 78 [place]: LAD-Left [place] Deviation P-Wave: Present QRS: RBBB (and LAFB) ST-T: Normal QT: Normal Comparison: No Change EKG Interpretation Comments: No acute ischemic changes. Course - Vital Signs Last Recorded V/S: Last Vital Signs Temp 97.4 F 01/29/20 17:20 Pulse 80 01/29/20 18:19 Resp 22 H 01/29/20 17:20 BP 157/73 H 01/29/20 17:20 Pulse Ox 100 01/29/20 17:20 - Orders/Labs/Meds Orders: Active Orders 24 hr Category Date Time Status EKG 12 Lead [EKG Documentation Completion] [RC] STAT Care 01/29/20 17:49 Active RT Aerosol Therapy [RC] ASDIRECTED Care 01/29/20 17:38 Active B-TYPE NATRIURETIC PEPTIDE,BNP [CHEM] Stat Lab 01/29/20 18:05 Results COMPREHENSIVE METABOLIC PN,CMP [CHEM] Stat Lab 01/29/20 18:05 Results TROPONIN I [CHEM] Stat Lab 01/29/20 18:05 Results Labs: Laboratory Tests 01/29/20 01/29/20 01/29/20 Range/Units 17:15 18:05 18:05 WBC 4.7 L (5.0-10.0) 10^3/uL RBC 4.00 L (4.2-5.4) 10^6/uL Hgb 11.7 L (12.0-16.0) g/dL Hct 34.9 L (37.0-47.0) % MCV 87.3 (80-100) fL MCH 29.3 (27.0-34.0) pg MCHC 33.5 (33.0-35.0) g/dL Plt Count 258 (150-450) 10^3/uL Neut % (Auto) 50.8 (42.2-75.2) % Lymph % (Auto) 30.0 (20.5-50.1) % [place] % (Auto) 16.5 H (2-8) % Eos % (Auto) 2.3 (1.0-3.0) % Baso % (Auto) 0.4 (0.0-1.0) % B-Natriuretic Peptide 13 (0-100) pg/ml SARS CoV-2 RNA Rapid KHOA Negative (NEGATIVE) Meds: Medications Discontinued Medications Generic Name Dose Route Start Last Admin Trade Name Freq PRN Reason Stop Dose Admin Albuterol/Ipratropium 3 ml 01/29/20 17:37 01/29/20 18:18 Duoneb 3.0-0.5 Mg/3 Ml NEB 01/29/20 17:38 3 ml ONETIME ONE Administration Dexamethasone 6 mg 01/29/20 17:37 01/29/20 18:17 Dexamethasone IVPUSH 01/29/20 17:38 6 mg ONETIME ONE Administration Gentamicin Sulfate 1 ml 01/29/20 18:41 01/29/20 18:50 Garamycin 0.3% Ophth Soln EYEBOTH 01/29/20 18:42 1 ml ONETIME ONE Administration Levofloxacin 500 mg 01/29/20 18:43 01/29/20 18:50 Levaquin PO 01/29/20 18:44 500 mg ONETIME ONE Administration - Radiology Interpretation Free Text/Narrative:: CXR: chronic COPD, no acute process. Departure - Departure Time of Disposition: 19:00 Disposition: Home, Self-Care 01 Condition: Fair Clinical Impression: Acute exacerbation of chronic obstructive pulmonary disease (COPD) - Discharge Information *PRESCRIPTION DRUG MONITORING PROGRAM REVIEWED*: Not Applicable *COPY OF PRESCRIPTION DRUG MONITORING REPORT IN PATIENT AARON: Not Applicable Instructions: Chronic Obstructive Pulmonary Disease Exacerbation, [id number] Forms: ED Department Discharge Additional Instructions: Rx: Prednisone 20mg Rx: Levaquin 500mg Use your Albuterol or DuoNeb nebulizer every 4 hours while awake until shortness of breath and wheezing improves. Gentamicin Ophthalmic Soln. 0.3% One drop in each eye 4 times a day for five days. Follow up in clinic for recheck in 5 to 7 days. Return to ER if worse at any time. Sepsis Event Note (ED) - Focused Exam Vital Signs: Vital Signs Temp Pulse Resp BP Pulse Ox 01/29/20 18:19 80 01/29/20 17:20 97.4 F 76 22 H 157/73 H 100 - My Orders Last 24 Hours: My Active Orders 01/29/20 17:38 RT Aerosol Therapy [RC] ASDIRECTED 01/29/20 17:49 EKG 12 Lead [EKG Documentation Completion] [RC] STAT 01/29/20 18:05 B-TYPE NATRIURETIC PEPTIDE,BNP [CHEM] Stat COMPREHENSIVE METABOLIC PN,CMP [CHEM] Stat TROPONIN I [CHEM] Stat - Assessment/Plan Last 24 Hours: My Active Orders 01/29/20 17:38 RT Aerosol Therapy [RC] ASDIRECTED 01/29/20 17:49 EKG 12 Lead [EKG Documentation Completion] [RC] STAT 01/29/20 18:05 B-TYPE NATRIURETIC PEPTIDE,BNP [CHEM] Stat COMPREHENSIVE METABOLIC PN,CMP [CHEM] Stat TROPONIN I [CHEM] Stat
[2020-01-29 17:22] VITALS: BP 157/73
[2020-01-29] MEDS ORDERED: Dexamethasone 4 MG/ML SDV IVPUSH ONE (17:37)
[2020-01-29] MEDS ORDERED: Albuterol/Ipratropium 3.0-0.5 MG/3 ML Neb Soln NEB ONE (17:37)
[2020-01-29 18:21] VITALS: PULSE 80
--- NOTE | 2020-01-29 18:25 | CR ---
PROCEDURE INFORMATION: Exam: XR Chest, 1 View Exam date and time: 01/29/2020 6:14 PM Age: 79 years old Clinical indication: Shortness of breath; Additional info: Shortness of breath, HX copd, covid negative TECHNIQUE: Imaging protocol: XR of the chest Views: 1 view. COMPARISON: CR Chest 1V Frontal 10/03/2019 10:45 PM FINDINGS: Lungs: The lung bay are hyperlucent and hyperexpanded. There are no acute infiltrates. Pleural space: Unremarkable. No pleural effusion. No pneumothorax. Heart/Mediastinum: Normal mediastinal contour with atherosclerotic calcification of the aorta. No cardiomegaly. Bones/joints: Unremarkable. IMPRESSION: 1. No acute cardiac or pulmonary findings. 2. COPD.
[2020-01-29] MEDS ORDERED: Gentamicin 0.3% Ophth Soln 5 ML Bottle EYEBOTH ONE (18:41)
[2020-01-29] MEDS ORDERED: Levofloxacin 500 MG Tab PO ONE (18:43)
[2020-01-29 18:56] LABS: CHLORIDE,CL 101 mmol/L (98-107); SODIUM,NA 137 mmol/L (136-145)
== END 2020-01-29 19:09 | disposition home or self-care (01) ==
LOC: DL.ED 17:11
DX: J44.1 Chronic obstructive pulmonary disease with (acute) exacerbation (principal); I10 Essential (primary) hypertension; E11.21 Type 2 diabetes mellitus with diabetic nephropathy; M19.90 Unspecified osteoarthritis, unspecified site; F41.9 Anxiety disorder, unspecified; F32.9 Major depressive disorder, single episode, unspecified; Z88.1 Allergy status to other antibiotic agents; Z20.828 Contact with and (suspected) exposure to other viral communicable diseases; Z88.5 Allergy status to narcotic agent; Z88.0 Allergy status to penicillin; Z79.82 Long term (current) use of aspirin; Z79.84 Long term (current) use of oral hypoglycemic drugs; Z79.899 Other long term (current) drug therapy
CPT/HCPCS: 36415; 71045; 80053; 83880; 84484; 85025; 93005; 94640; 96374; 99285; A9270; J1100; U0002; 93010; 99284; J7620-GY

== ENCOUNTER 2020-02-13 16:38 | Emergency (ER) | payer MEDICARE, OTHER ==
[2020-02-13 16:45] VITALS: BP 134/67
--- NOTE | 2020-02-13 16:49 | EDM.PDOC ---
ED HPI GENERAL MEDICAL PROBLEM - General Chief Complaint: Respiratory Problem Stated Complaint: AMBULANCE Time Seen by Provider: 02/13/20 16:40 Source of Information: Reports: Patient History Limitations: Reports: No Limitations - History of Present Illness INITIAL COMMENTS - FREE TEXT/NARRATIVE: This 80 yo female patient was brought to the ED by [facility] due to increased shortness of breath. The patient reports her breathing has been getting worse over the past couple of days. The patient reports she did have a nebulizer treatment prior to EMS coming to her home which helped her breathing. The patient reports she has someone coming to her home on Saturday to get her home oxygen. The patient has a history of COPD. 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 Treatments - Related Data Allergies Allergy/AdvReac Type Severity Reaction Status Date / Time erythromycin base Allergy Unknown Rash Verified 02/13/20 16:43 [Erythromycin Base] ampicillin AdvReac Unknown swelling Verified 02/13/20 16:43 of legs and feet codeine AdvReac Unknown dizzy and Verified 02/13/20 16:43 lightheaded Penicillins AdvReac Unknown swelling Verified 02/13/20 16:43 of legs and feet Home Meds: Home Meds Hydrochlorothiazide 50 mg PO DAILY 07/23/13 [History] Lisinopril 40 mg PO DAILY 07/23/13 [History] Tiotropium [Spiriva Handihaler] 18 mcg INH DAILY 07/23/13 [History] metFORMIN [Glucophage] 500 mg PO BID 07/23/13 [History] Aspirin [Halfprin] 81 mg PO BRK 05/11/15 [History] Sertraline [Zoloft] 100 mg PO DAILY 08/27/17 [History] Acetaminophen [Acetaminophen Extra Strength] 1,000 mg pe PO Q6HR PRN 10/13/18 [History] Budesonide [Pulmicort] 1 vial IH BID 10/13/18 [History] Formoterol Fumarate [Perforomist] 2 ml IH BID 10/13/18 [History] Albuterol Sulfate [Albuterol Sulfate Hfa] 1 puff IH DAILY PRN 10/14/18 [History] Carboxymethylcellulose Sodium [Lubricant Eye Drops] 1 drop EYEBOTH QID PRN 10/14/18 [History] Cholecalciferol (Vitamin D3) [Vitamin D3] 1,000 unit PO DAILY 10/14/18 [History] Ferrous Gluconate 324 mg PO BID 10/14/18 [History] Past Medical History HEENT History: Reports: None Cardiovascular History: Reports: Hypertension Respiratory History: Reports: Asthma, COPD, SOB Gastrointestinal History: Reports: None Other Gastrointestinal History: Appendicitis 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: Musculoskeletal History: Reports: Arthritis Neurological History: Reports: Head Trauma Psychiatric History: Reports: Anxiety, Depression, Panic Attack Endocrine/Metabolic History: Reports: Diabetes, Type II Hematologic History: Reports: Anemia, Blood Transfusion(s) Immunologic History: Reports: None Oncologic (Cancer) History: Reports: None Dermatologic History: Reports: None - Infectious Disease History Infectious Disease History: Reports: Measles, Shingles Other Infectious Disease History: 02/12/18 recent diagnosis of shingles - Past Surgical History HEENT Surgical History: Reports: Tonsillectomy GI Surgical History: Reports: Appendectomy, Cholecystectomy Musculoskeletal Surgical History: Reports: Arthroscopic Knee Social & Family History - Family History Family Medical History: Noncontributory - Caffeine Use Caffeine Use: Reports: Coffee - Living Situation & Occupation Living situation: Reports: with Family Occupation: Retired ED ROS GENERAL - Review of Systems Review Of Systems: Comprehensive ROS is negative, except as noted in HPI. ED EXAM, GENERAL - Physical Exam Exam: See Below Exam Limited By: No Limitations General Appearance: Alert, WD/WN, Moderate Distress Eye Exam: Bilateral Eye: EOMI, Normal Inspection, PERRL Ears: Normal External Exam, Normal Canal, Hearing Grossly Normal, Normal TMs Nose: Normal Inspection, Normal Mucosa, No Blood Throat/Mouth: Normal Inspection, Normal Lips, Normal Teeth, Normal Gums, Normal Oropharynx, Normal Voice, No Airway Compromise Head: Atraumatic, Normocephalic Neck: Normal Inspection, Supple, Non-Tender, Full Range of Motion Respiratory/Chest: Normal Breath Sounds, Chest Non-Tender, Decreased Breath Sounds, Rhonchi Cardiovascular: Normal Peripheral Pulses, Regular Rate, Rhythm, No Edema, No Gallop, No JVD, No Murmur, No Rub GI/Abdominal: Normal Bowel Sounds, Soft, Non-Tender, No Organomegaly, No Distention, No Abnormal Bruit, No Mass (Female) Exam: Deferred Rectal (Female) Exam: Deferred Back Exam: Normal Inspection, Full Range of Motion, NT Extremities: Normal Inspection, Normal Range of Motion, Non-Tender, Normal Capillary Refill, No Pedal Edema Neurological: Alert, Oriented, CN II-XII Intact, Normal Cognition, Normal Gait, Normal Reflexes, No Motor/Sensory Deficits Psychiatric: Normal Affect, Normal Mood Skin Exam: Warm, Dry, Intact, Normal Color, No Rash Lymphatic: No Adenopathy Course - Vital Signs Last Recorded V/S: Last Vital Signs Temp 36.6 C 02/13/20 16:44 Pulse 91 02/13/20 17:01 Resp 22 H 02/13/20 16:44 BP 134/67 02/13/20 16:44 Pulse Ox 97 02/13/20 16:44 - Orders/Labs/Meds Orders: Active Orders 24 hr Category Date Time Status EKG Documentation Completion [RC] STAT Care 02/13/20 16:44 Ordered RT Aerosol Therapy [RC] ASDIRECTED Care 02/13/20 16:50 Ordered CULTURE BLOOD [BC] Stat Lab 02/13/20 16:44 Ordered cefTRIAXone [Rocephin] 1 gm Med 02/13/20 17:52 Ordered Sodium Chloride 0.9% [Normal Saline] 50 ml IV ONETIME Medication Orders Ceftriaxone Sodium 1 gm/ (Sodium Chloride) 50 mls @ 100 mls/hr IV ONETIME ONE Stop: 02/13/20 18:21 Labs: Laboratory Tests 02/13/20 02/13/20 02/13/20 Range/Units 16:57 16:57 16:57 WBC 7.6 (5.0-10.0) 10^3/uL RBC 4.02 L (4.2-5.4) 10^6/uL Hgb 11.7 L (12.0-16.0) g/dL Hct 35.1 L (37.0-47.0) % MCV 87.3 (80-100) fL MCH 29.1 (27.0-34.0) pg MCHC 33.3 (33.0-35.0) g/dL Plt Count 260 (150-450) 10^3/uL Neut % (Auto) 67.5 (42.2-75.2) % Lymph % (Auto) 19.0 L (20.5-50.1) % [place] % (Auto) 11.2 H (2-8) % Eos % (Auto) 2.0 (1.0-3.0) % Baso % (Auto) 0.3 (0.0-1.0) % Sodium 132 L (136-145) mmol/L Potassium 4.5 (3.5-5.1) mmol/L Chloride 97 L (98-107) mmol/L Carbon Dioxide 26 (21-32) mmol/L Anion Gap 13.5 H (7-13) mEq/L BUN 20 H (7-18) mg/dL Creatinine 0.90 (0.55-1.02) mg/dL Est Cr Clr Drug Dosing 41.24 mL/min Estimated GFR (MDRD) > 60 BUN/Creatinine Ratio 22.2 (No establ ref range) Glucose 125 H (74-99) mg/dL Lactic Acid 1.3 (0.4-2.0) mmol/L Calcium 8.2 L (8.5-10.1) mg/dL Total Bilirubin 0.7 (0.2-1.0) mg/dL AST 38 H (15-37) U/L ALT 39 (14-59) U/L Alkaline Phosphatase 121 H (46-116) U/L Troponin I < 0.017 (0.000-0.056) ng/mL Total Protein 7.2 (6.4-8.2) g/dL Albumin 3.3 L (3.4-5.0) g/dL Globulin 3.9 Albumin/Globulin Ratio 0.85 Meds: Medications Generic Name Dose Route Start Last Admin Trade Name Freq PRN Reason Stop Dose Admin Ceftriaxone Sodium 1 gm/ 50 mls @ 100 mls/hr 02/13/20 17:52 Sodium Chloride IV 02/13/20 18:21 ONETIME ONE Discontinued Medications Generic Name Dose Route Start Last Admin Trade Name Freq PRN Reason Stop Dose Admin Albuterol/Ipratropium 3 ml 02/13/20 16:50 02/13/20 17:01 Duoneb 3.0-0.5 Mg/3 Ml NEB 02/13/20 16:51 3 ml ONETIME ONE Administration Methylprednisolone Sodium Succinate 125 mg 02/13/20 17:51 Solu-Medrol IVPUSH 02/13/20 17:52 ONETIME ONE - Re-Assessments/Exams Free Text/Narrative Re-Assessment/Exam: 02/13/20 17:09 The patient reports improvement after the Duoneb treatment. Departure - Departure Time of Disposition: 17:57 Disposition: Home, Self-Care 01 Condition: Fair Clinical Impression: COPD exacerbation - Discharge Information Instructions: Chronic Obstructive Pulmonary Disease Exacerbation, Zoyl-jn-Eyol Forms: ED Department Discharge Care Plan Goals: The patient was advised of the examination, lab and x-ray results during the visit. The patient was given a Duoneb breathing treatment, IV Solumedrol and IV Rocephin while in the ED. The patient was discharged with scripts for Azithromycin (250 mg) #6 to take 2 by mouth on day 1 and 1 by mouth on days 2-5 and Prednisone (20 mg) #10 to take 2 by mouth daily with food. If the patient has any additional symptoms or concerns, the patient should either return to the emergency department or visit her primary care facility. Sepsis Event Note (ED) - Evaluation Sepsis Screening Result: No Definite Risk - Focused Exam Vital Signs: Vital Signs Temp Pulse Resp BP Pulse Ox 02/13/20 17:01 91 02/13/20 16:44 36.6 C 84 22 H 134/67 97 - My Orders Last 24 Hours: My Active Orders 02/13/20 16:44 EKG Documentation Completion [RC] STAT CULTURE BLOOD [BC] Stat 02/13/20 16:50 RT Aerosol Therapy [RC] ASDIRECTED 02/13/20 17:52 cefTRIAXone [Rocephin] 1 gm Sodium Chloride 0.9% [Normal Saline] 50 ml IV ONETIME - Assessment/Plan Last 24 Hours: My Active Orders 02/13/20 16:44 EKG Documentation Completion [RC] STAT CULTURE BLOOD [BC] Stat 02/13/20 16:50 RT Aerosol Therapy [RC] ASDIRECTED 02/13/20 17:52 cefTRIAXone [Rocephin] 1 gm Sodium Chloride 0.9% [Normal Saline] 50 ml IV ONETIME
[2020-02-13] MEDS ORDERED: Albuterol/Ipratropium 3.0-0.5 MG/3 ML Neb Soln NEB ONE (16:50)
[2020-02-13 17:04] VITALS: PULSE 91
--- NOTE | 2020-02-13 17:23 | CR ---
PROCEDURE INFORMATION: Exam: XR Chest, 1 View Exam date and time: 02/13/2020 5:11 PM Age: 80 years old Clinical indication: Shortness of breath; Additional info: Short of breath TECHNIQUE: Imaging protocol: XR of the chest Views: 1 view. COMPARISON: CR Chest 1V Frontal 01/29/2020 6:14 PM FINDINGS: Lungs: Mild chronic appearing interstitial changes are present within the lung parenchyma. There is no pneumonia or pulmonary edema. Pleural space: Unremarkable. No pleural effusion. No pneumothorax. Heart/Mediastinum: Heart size is mildly prominent. Bones/joints: Unremarkable. IMPRESSION: Mild chronic appearing interstitial change and cardiomegaly. No acute cardiopulmonary disease.
[2020-02-13 17:50] LABS: ANION GAP 13.5 mEq/L (7-13); CHLORIDE,CL 97 mmol/L (98-107); SODIUM,NA 132 mmol/L (136-145)
[2020-02-13] MEDS ORDERED: methylPREDNISolone Sodium Succinate 125 MG/2 ML SDV IVPUSH ONE (17:51)
[2020-02-13] MEDS ORDERED: cefTRIAXone 1 GM in Sodium Chloride 0.9% 50 ML IV ONE (17:52)
== END 2020-02-13 18:36 | disposition home or self-care (01) ==
LOC: DL.ED 16:38
DX: J44.1 Chronic obstructive pulmonary disease with (acute) exacerbation (principal); E11.9 Type 2 diabetes mellitus without complications; F41.9 Anxiety disorder, unspecified; F32.9 Major depressive disorder, single episode, unspecified; M19.90 Unspecified osteoarthritis, unspecified site; J44.9 Chronic obstructive pulmonary disease, unspecified; I10 Essential (primary) hypertension; Z79.82 Long term (current) use of aspirin; Z79.899 Other long term (current) drug therapy; Z88.0 Allergy status to penicillin; Z88.5 Allergy status to narcotic agent; Z79.84 Long term (current) use of oral hypoglycemic drugs; Z88.1 Allergy status to other antibiotic agents
CPT/HCPCS: 36415; 71045; 80053; 83605; 84484; 85025; 87040; 93005; 94640; 96365; 96375; 99285; J0696; J2930; J7050; J7620-GY

== ENCOUNTER 2020-05-12 15:31 | Emergency (ER) | payer MEDICARE, OTHER ==
--- NOTE | 2020-05-12 15:44 | EDM.PDOC ---
ED HPI GENERAL MEDICAL PROBLEM - General Chief Complaint: Respiratory Problem Stated Complaint: AMBULANCE Time Seen by Provider: 05/12/20 16:30 Source of Information: Reports: Patient, EMS, EMS Notes Reviewed, RN, RN Notes Reviewed History Limitations: Reports: No Limitations - History of Present Illness INITIAL COMMENTS - FREE TEXT/NARRATIVE: Patient presents to the ED via EMS with complaints of shortness of breath. The patient reports a history of COPD for which she takes Aricept, Spiriva, Perforomist, and Pulmicort in addition to 2L of O2 via NC at home. She reports she was diagnosed with pneumonia four days ago at the [facility] and was subsequently started on antibiotics; she is unsure which antibiotic. She presents today as her shortness of breath continues and she was noted some unsteadiness on her feet. She states she had a fever of 100.1 five days ago but has not fevered since starting antibiotics. She denies shaking chills, headache, vision changes, chest pain, palpitations, nausea, vomiting, or diarrhea. She denies a history of COVID infection and has not recently been tested. She denies tobacco, alcohol, or recreational drug use. - Related Data Allergies Allergy/AdvReac Type Severity Reaction Status Date / Time erythromycin base Allergy Unknown Rash Verified 05/12/20 15:51 [Erythromycin Base] ampicillin AdvReac Unknown swelling Verified 05/12/20 15:51 of legs and feet codeine AdvReac Unknown dizzy and Verified 05/12/20 15:51 lightheaded Penicillins AdvReac Unknown swelling Verified 05/12/20 15:51 of legs and feet Home Meds: Home Meds Hydrochlorothiazide 50 mg PO DAILY 07/23/13 [History] Lisinopril 40 mg PO DAILY 07/23/13 [History] Tiotropium [Spiriva Handihaler] 18 mcg INH DAILY 07/23/13 [History] metFORMIN [Glucophage] 500 mg PO DAILY 07/23/13 [History] Aspirin [Halfprin] 81 mg PO BRK 05/11/15 [History] Sertraline [Zoloft] 50 mg PO DAILY 08/27/17 [History] Acetaminophen [Acetaminophen Extra Strength] 1,000 mg pe PO Q6HR PRN 10/13/18 [History] Budesonide [Pulmicort] 1 vial IH BID 10/13/18 [History] Formoterol Fumarate [Perforomist] 2 ml IH BID 10/13/18 [History] Albuterol Sulfate [Albuterol Sulfate Hfa] 1 puff IH DAILY PRN 10/14/18 [History] Carboxymethylcellulose Sodium [Lubricant Eye Drops] 1 drop EYEBOTH QID PRN 10/14/18 [History] Cholecalciferol (Vitamin D3) [Vitamin D3] 1,000 unit PO DAILY 10/14/18 [History] Ferrous Gluconate 324 mg PO DAILY 10/14/18 [History] Benzonatate 100 mg PO TID PRN 05/12/20 [History] Donepezil [Aricept] 5 mg PO BEDTIME 05/12/20 [History] Loratadine 10 mg PO DAILY 05/12/20 [History] Melatonin 3 mg PO BEDTIME 05/12/20 [History] Multivitamin with Minerals [Multivitamins with Minerals] 1 each PO DAILY 05/12/20 [History] Ondansetron [Ondansetron ODT] 4 mg PO Q8H PRN 05/12/20 [History] Spironolactone [Aldactone] 25 mg PO DAILY 05/12/20 [History] Vitamin E (Dl,Tocopheryl Acet) [Vitamin E] 450 mg PO DAILY 05/12/20 [History] Past Medical History HEENT History: Reports: None Cardiovascular History: Reports: Hypertension Respiratory History: Reports: Asthma, COPD, SOB Gastrointestinal History: Reports: None Other Gastrointestinal History: Appendicitis 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: Musculoskeletal History: Reports: Arthritis Neurological History: Reports: Head Trauma Psychiatric History: Reports: Anxiety, Depression, Panic Attack Endocrine/Metabolic History: Reports: Diabetes, Type II Hematologic History: Reports: Anemia, Blood Transfusion(s) Immunologic History: Reports: None Oncologic (Cancer) History: Reports: None Dermatologic History: Reports: None - Infectious Disease History Infectious Disease History: Reports: Measles, Shingles Other Infectious Disease History: 02/12/18 recent diagnosis of shingles - Past Surgical History HEENT Surgical History: Reports: Tonsillectomy GI Surgical History: Reports: Appendectomy, Cholecystectomy Musculoskeletal Surgical History: Reports: Arthroscopic Knee Social & Family History - Family History Family Medical History: No Pertinent Family History - Caffeine Use Caffeine Use: Reports: Coffee - Living Situation & Occupation Living situation: Reports: with Family Occupation: Retired ED ROS GENERAL - Review of Systems Review Of Systems: Comprehensive ROS is negative, except as noted in HPI. ED EXAM, GENERAL - Physical Exam Exam: See Below Exam Limited By: No Limitations General Appearance: Alert, No Apparent Distress Eye Exam: Bilateral Eye: EOMI, Normal Inspection, PERRL (3mm) Ears: Normal External Exam, Hearing Grossly Normal Ear Exam: Left Ear: Canal Normal (Right blocked by cerumen), TM normal (Right blocked be cerumen) Nose: Normal Inspection. No: Nasal Tenderness, Nasal Swelling, Nasal Drainage Throat/Mouth: Normal Inspection, Normal Voice, No Airway Compromise Head: Atraumatic, Normocephalic Neck: Normal Inspection, Supple, Non-Tender, Full Range of Motion, Lymphadenopathy (R). No: Lymphadenopathy (L) Respiratory/Chest: No Respiratory Distress, Chest Non-Tender, Decreased Breath Sounds, Rales, Other (On 2L of O2 via NC, which is baseline). No: Crackles, Rhonchi, Wheezing Cardiovascular: Normal Peripheral Pulses, Regular Rate, Rhythm, No Gallop, No JVD, No Murmur, No Rub Peripheral Pulses: 2+: Radial (L), Radial (R) GI/Abdominal: Normal Bowel Sounds, Soft, Non-Tender, No Distention, No Mass, Pelvis Stable (Female) Exam: Deferred Rectal (Female) Exam: Deferred Back Exam: Normal Inspection, Full Range of Motion Extremities: Normal Range of Motion, Non-Tender, Normal Capillary Refill, Pedal Edema (+1 pitting, bilaterally) Neurological: Alert, Oriented, CN II-XII Intact, Normal Cognition, Normal Gait, No Motor/Sensory Deficits Psychiatric: Normal Affect, Normal Mood Skin Exam: Warm, Dry, Intact, Normal Color, No Rash. No: Ecchymosis, Erythema, Jaundice, Mottled, Pallor, Petechiae Course - Vital Signs Last Recorded V/S: Last Vital Signs Temp 98.2 F 05/12/20 15:43 Pulse 86 05/12/20 15:43 Resp 28 H 05/12/20 15:43 BP 150/74 H 05/12/20 15:43 Pulse Ox 99 05/12/20 15:43 - Orders/Labs/Meds Orders: Active Orders 24 hr Category Date Time Status EKG Documentation Completion [RC] STAT Care 05/12/20 16:15 Active CULTURE BLOOD [BC] Stat Lab 05/12/20 16:31 Received Labs: Laboratory Tests 05/12/20 05/12/20 05/12/20 Range/Units 16:31 16:31 16:31 WBC 7.6 (5.0-10.0) 10^3/uL RBC 4.08 L (4.2-5.4) 10^6/uL Hgb 11.4 L (12.0-16.0) g/dL Hct 34.0 L (37.0-47.0) % MCV 83.3 D (80-100) fL MCH 27.9 (27.0-34.0) pg MCHC 33.5 (33.0-35.0) g/dL Plt Count 260 (150-450) 10^3/uL Neut % (Auto) 60.3 (42.2-75.2) % Lymph % (Auto) 18.6 L (20.5-50.1) % [place] % (Auto) 17.9 H (2-8) % Eos % (Auto) 2.9 (1.0-3.0) % Baso % (Auto) 0.3 (0.0-1.0) % D-Dimer, Quantitative 460 H (0-400) ng/mL Sodium 134 L (136-145) mmol/L Potassium 4.0 (3.5-5.1) mmol/L Chloride 99 (98-107) mmol/L Carbon Dioxide 26 (21-32) mmol/L Anion Gap 13.0 (7-13) mEq/L BUN 15 (7-18) mg/dL Creatinine 0.81 (0.55-1.02) mg/dL Est Cr Clr Drug Dosing 45.82 mL/min Estimated GFR (MDRD) > 60 BUN/Creatinine Ratio 18.5 (No establ ref range) Glucose 112 H (74-99) mg/dL Lactic Acid (0.4-2.0) mmol/L Calcium 8.4 L (8.5-10.1) mg/dL Magnesium 1.8 (1.8-2.4) mg/dL Total Bilirubin 0.6 (0.2-1.0) mg/dL AST 38 H (15-37) U/L ALT 39 (14-59) U/L Alkaline Phosphatase 107 (46-116) U/L Troponin I < 0.017 (0.000-0.056) ng/mL C-Reactive Protein 9.4 H (0.0-0.9) mg/dL B-Natriuretic Peptide 16 (0-100) pg/ml Total Protein 7.5 (6.4-8.2) g/dL Albumin 3.3 L (3.4-5.0) g/dL Globulin 4.2 Albumin/Globulin Ratio 0.79 Urine Color (YELLOW) Urine Appearance (CLEAR) Urine pH (5.0-9.0) Ur Specific Lydia (1.005-1.030) Urine Protein (NEGATIVE) Urine Glucose (UA) (NEGATIVE) Urine Ketones (NEGATIVE) Urine Occult Blood (NEGATIVE) Urine Nitrite (NEGATIVE) Urine Bilirubin (NEGATIVE) Urine Urobilinogen (0.2-1.0) mg/dL Ur Leukocyte Esterase (NEGATIVE) Influenza Type A RNA (NEGATIVE) Influenza Type B RNA (NEGATIVE) SARS-CoV-2 RNA (KHOA) (NEGATIVE) 05/12/20 05/12/20 05/12/20 Range/Units 16:31 16:49 17:45 WBC (5.0-10.0) 10^3/uL RBC (4.2-5.4) 10^6/uL Hgb (12.0-16.0) g/dL Hct (37.0-47.0) % MCV (80-100) fL MCH (27.0-34.0) pg MCHC (33.0-35.0) g/dL Plt Count (150-450) 10^3/uL Neut % (Auto) (42.2-75.2) % Lymph % (Auto) (20.5-50.1) % [place] % (Auto) (2-8) % Eos % (Auto) (1.0-3.0) % Baso % (Auto) (0.0-1.0) % D-Dimer, Quantitative (0-400) ng/mL Sodium (136-145) mmol/L Potassium (3.5-5.1) mmol/L Chloride (98-107) mmol/L Carbon Dioxide (21-32) mmol/L Anion Gap (7-13) mEq/L BUN (7-18) mg/dL Creatinine (0.55-1.02) mg/dL Est Cr Clr Drug Dosing mL/min Estimated GFR (MDRD) BUN/Creatinine Ratio (No establ ref range) Glucose (74-99) mg/dL Lactic Acid 1.1 (0.4-2.0) mmol/L Calcium (8.5-10.1) mg/dL Magnesium (1.8-2.4) mg/dL Total Bilirubin (0.2-1.0) mg/dL AST (15-37) U/L ALT (14-59) U/L Alkaline Phosphatase (46-116) U/L Troponin I (0.000-0.056) ng/mL C-Reactive Protein (0.0-0.9) mg/dL B-Natriuretic Peptide (0-100) pg/ml Total Protein (6.4-8.2) g/dL Albumin (3.4-5.0) g/dL Globulin Albumin/Globulin Ratio Urine Color Dark yellow (YELLOW) Urine Appearance Slightly cloudy (CLEAR) Urine pH 6.0 (5.0-9.0) Ur Specific Lydia 1.020 (1.005-1.030) Urine Protein Negative (NEGATIVE) Urine Glucose (UA) Negative (NEGATIVE) Urine Ketones Negative (NEGATIVE) Urine Occult Blood Negative (NEGATIVE) Urine Nitrite Negative (NEGATIVE) Urine Bilirubin Negative (NEGATIVE) Urine Urobilinogen 1.0 (0.2-1.0) mg/dL Ur Leukocyte Esterase Negative (NEGATIVE) Influenza Type A RNA Negative (NEGATIVE) Influenza Type B RNA Negative (NEGATIVE) SARS-CoV-2 RNA (KHOA) Negative (NEGATIVE) - Radiology Interpretation Free Text/Narrative:: [facility] Final Radiology Report Call: [phone] assistance Online chat: [email or web address] Name: NETTE ROBLERO Age: 80Years F Date: 05/12/2020 SSN: -- : [id number] Study: CR CHEST 1V FRONTAL Requesting Physician: Leighann Navarro Images: 1 Addl Studies: Provided Clinical History: Shortness of breath Contrast: Contrast Medium: Contrast Amount: Contrast Method: CONFIDENTIALITY STATEMENT This report is intended only for use by the referring physician, and only in accordance with law. If you received this in error, call [phone]. Page 1 of 1 PROCEDURE INFORMATION: Exam: XR Chest, 1 View Exam date and time: 05/12/2020 6:08 PM Age: 80 years old Clinical indication: Shortness of breath and other: Covid pending TECHNIQUE: Imaging protocol: XR of the chest Views: 1 view. Total images: 1 COMPARISON: CR Chest 1V Frontal 02/13/2020 5:11 PM FINDINGS: Lungs: Unremarkable. No consolidation. Pleural space: Unremarkable. No pleural effusion. No pneumothorax. Heart/Mediastinum: Mild cardiomegaly. Vasculature: Tortuous calcified thoracic aorta. Bones/joints: Unremarkable. IMPRESSION: No acute cardiopulmonary disease. Thank you for allowing us to participate in the care of your patient. Dictated and Authenticated by: Michael Schroeder MD 05/12/2020 6:15 PM Central Time ([place] & [place]) - Re-Assessments/Exams Free Text/Narrative Re-Assessment/Exam: 05/12/20 CBC, CMP, and UA unremarkable for acute processes. COVID and Influenza A/B test negative. CXR negative for acute processes. Patient instructed to continue on antibiotic, as previously prescribed. Patient notified of lab/test/imaging re sults. She verbalized understanding and agreement with the plan of care. Departure - Departure Time of Disposition: 18:41 Disposition: Home, Self-Care 01 Condition: Good Clinical Impression: Shortness of breath, History of COPD, On home oxygen therapy, Pedal edema - Discharge Information *PRESCRIPTION DRUG MONITORING PROGRAM REVIEWED*: Not Applicable *COPY OF PRESCRIPTION DRUG MONITORING REPORT IN PATIENT AARON: Not Applicable Instructions: Chronic Obstructive Pulmonary Disease Exacerbation, [id number] Forms: ED Department Discharge Additional Instructions: 1.) Follow up with your primary care provider regarding today's visit, especially regarding the swelling to your lower legs. Sepsis Event Note (ED) - Focused Exam Vital Signs: Vital Signs Temp Pulse Resp BP Pulse Ox 05/12/20 15:43 98.2 F 86 28 H 150/74 H 99 - My Orders Last 24 Hours: My Active Orders 05/12/20 16:15 EKG Documentation Completion [RC] STAT 05/12/20 16:31 CULTURE BLOOD [BC] Stat - Assessment/Plan Last 24 Hours: My Active Orders 05/12/20 16:15 EKG Documentation Completion [RC] STAT 05/12/20 16:31 CULTURE BLOOD [BC] Stat
[2020-05-12 15:45] VITALS: BP 150/74; PULSE 86
[2020-05-12 17:06] LABS: CHLORIDE,CL 99 mmol/L (98-107); SODIUM,NA 134 mmol/L (136-145)
--- NOTE | 2020-05-12 18:16 | CR ---
PROCEDURE INFORMATION: Exam: XR Chest, 1 View Exam date and time: 05/12/2020 6:08 PM Age: 80 years old Clinical indication: Shortness of breath and other: Covid pending TECHNIQUE: Imaging protocol: XR of the chest Views: 1 view. Total images: 1 COMPARISON: CR Chest 1V Frontal 02/13/2020 5:11 PM FINDINGS: Lungs: Unremarkable. No consolidation. Pleural space: Unremarkable. No pleural effusion. No pneumothorax. Heart/Mediastinum: Mild cardiomegaly. Vasculature: Tortuous calcified thoracic aorta. Bones/joints: Unremarkable. IMPRESSION: No acute cardiopulmonary disease.
[2020-05-12 18:35] LABS: CORONAVIRUS COVID-19 NAA NEGATIVE (NEGATIVE)
== END 2020-05-12 18:58 | disposition home or self-care (01) ==
LOC: DL.ED 15:31
DX: J44.9 Chronic obstructive pulmonary disease, unspecified (principal); R60.0 Localized edema; I10 Essential (primary) hypertension; E11.21 Type 2 diabetes mellitus with diabetic nephropathy; M19.90 Unspecified osteoarthritis, unspecified site; Z79.82 Long term (current) use of aspirin; Z79.84 Long term (current) use of oral hypoglycemic drugs; Z79.899 Other long term (current) drug therapy; Z20.822 Contact with and (suspected) exposure to COVID-19; Z88.1 Allergy status to other antibiotic agents; Z88.5 Allergy status to narcotic agent; Z99.81 Dependence on supplemental oxygen
CPT/HCPCS: 0240U; 36415; 71045; 80053; 81003; 83605; 83735; 83880; 84484; 85025; 85379; 86140; 87040; 93005; 99285

== ENCOUNTER 2020-06-17 17:05 | Emergency (ER) | payer MEDICARE, OTHER ==
[2020-06-17 17:51] VITALS: BP 135/74; PULSE 82
--- NOTE | 2020-06-17 18:21 | CR ---
PROCEDURE INFORMATION: Exam: XR Chest, 1 View Exam date and time: 06/17/2020 6:17 PM Age: 80 years old Clinical indication: Other: Chest pain TECHNIQUE: Imaging protocol: XR of the chest Views: 1 view. COMPARISON: CR Chest 1V Frontal 05/12/2020 6:08 PM FINDINGS: Lungs: The lungs are hyperinflated, consistent with underlying small airways disease. Atelectatic and/or early infiltrative changes noted within both lung bases. Pleural spaces: There is no evidence of pneumothorax. There are no pleural effusions present. Heart/Mediastinum: The heart demonstrates mild diffuse enlargement. Vasculature: The vasculature demonstrates diffuse mild atherosclerotic calcification. Bones/joints: Unremarkable. IMPRESSION: 1. The lungs are hyperinflated, consistent with underlying small airways disease. 2. Atelectatic and/or early infiltrative changes noted within both lung bases.
--- NOTE | 2020-06-17 18:40 | EDM.PDOC ---
<Johnson,Cecilia - Last Filed: 06/17/20 18:40> ED HPI GENERAL MEDICAL PROBLEM - General Chief Complaint: Respiratory Problem Stated Complaint: AMBULANCE Time Seen by Provider: 06/17/20 18:02 Source of Information: Reports: Patient, EMS, EMS Notes Reviewed, RN, RN Notes Reviewed History Limitations: Reports: No Limitations - History of Present Illness INITIAL COMMENTS - FREE TEXT/NARRATIVE: Patient is an 80-year-old female who presents to ER per [facility] with complaint of increased shortness of breath. Patient states she does have a history of COPD and has oxygen that she does use at home only when she needs it usually. 2 L nasal cannula. She states over the past week she has needed it more often. Patient states she has not had Covid, and states she has had her first vaccination. Denies cough, fever, chills, nausea, vomiting, diarrhea, chest pain. Onset: Gradual - Related Data Allergies Allergy/AdvReac Type Severity Reaction Status Date / Time erythromycin base Allergy Unknown Rash Verified 05/12/20 15:51 [Erythromycin Base] ampicillin AdvReac Unknown swelling Verified 05/12/20 15:51 of legs and feet codeine AdvReac Unknown dizzy and Verified 05/12/20 15:51 lightheaded Penicillins AdvReac Unknown swelling Verified 05/12/20 15:51 of legs and feet Home Meds: Home Meds Hydrochlorothiazide 50 mg PO DAILY 07/23/13 [History] Lisinopril 40 mg PO DAILY 07/23/13 [History] Tiotropium [Spiriva Handihaler] 18 mcg INH DAILY 07/23/13 [History] metFORMIN [Glucophage] 500 mg PO DAILY 07/23/13 [History] Aspirin [Halfprin] 81 mg PO BRK 05/11/15 [History] Sertraline [Zoloft] 50 mg PO DAILY 08/27/17 [History] Acetaminophen [Acetaminophen Extra Strength] 1,000 mg pe PO Q6HR PRN 10/13/18 [History] Budesonide [Pulmicort] 1 vial IH BID 10/13/18 [History] Formoterol Fumarate [Perforomist] 2 ml IH BID 10/13/18 [History] Albuterol Sulfate [Albuterol Sulfate Hfa] 1 puff IH DAILY PRN 10/14/18 [History] Carboxymethylcellulose Sodium [Lubricant Eye Drops] 1 drop EYEBOTH QID PRN 10/14/18 [History] Cholecalciferol (Vitamin D3) [Vitamin D3] 1,000 unit PO DAILY 10/14/18 [History] Ferrous Gluconate 324 mg PO DAILY 10/14/18 [History] Benzonatate 100 mg PO TID PRN 05/12/20 [History] Donepezil [Aricept] 5 mg PO BEDTIME 05/12/20 [History] Loratadine 10 mg PO DAILY 05/12/20 [History] Melatonin 3 mg PO BEDTIME 05/12/20 [History] Multivitamin with Minerals [Multivitamins with Minerals] 1 each PO DAILY 05/12/20 [History] Ondansetron [Ondansetron ODT] 4 mg PO Q8H PRN 05/12/20 [History] Spironolactone [Aldactone] 25 mg PO DAILY 05/12/20 [History] Vitamin E (Dl,Tocopheryl Acet) [Vitamin E] 450 mg PO DAILY 05/12/20 [History] Past Medical History - Past Health History Medical/Surgical History: Denies Medical/Surgical History HEENT History: Reports: None Cardiovascular History: Reports: Hypertension Respiratory History: Reports: Asthma, COPD, SOB Gastrointestinal History: Reports: None Other Gastrointestinal History: Appendicitis 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: Musculoskeletal History: Reports: Arthritis Neurological History: Reports: Head Trauma Psychiatric History: Reports: Anxiety, Depression, Panic Attack Endocrine/Metabolic History: Reports: Diabetes, Type II Hematologic History: Reports: Anemia, Blood Transfusion(s) Immunologic History: Reports: None Oncologic (Cancer) History: Reports: None Dermatologic History: Reports: None - Infectious Disease History Infectious Disease History: Reports: Measles, Shingles Other Infectious Disease History: 02/12/18 recent diagnosis of shingles - Past Surgical History HEENT Surgical History: Reports: Tonsillectomy GI Surgical History: Reports: Appendectomy, Cholecystectomy Other GI Surgeries/Procedures: Appendectomy Musculoskeletal Surgical History: Reports: Arthroscopic Knee Social & Family History - Family History Family Medical History: No Pertinent Family History - Tobacco Use Tobacco Use Status *Q: Never Tobacco User - Caffeine Use Caffeine Use: Reports: None - Recreational Drug Use Recreational Drug Use: No - Living Situation & Occupation Living situation: Reports: with Family Occupation: Retired ED ROS GENERAL - Review of Systems Review Of Systems: Comprehensive ROS is negative, except as noted in HPI. ED EXAM, GENERAL - Physical Exam Exam: See Below General Appearance: Alert, WD/WN, Moderate Distress Eye Exam: Bilateral Eye: EOMI, Normal Inspection Ears: Normal External Exam, Hearing Grossly Normal Nose: Normal Inspection Throat/Mouth: Normal Inspection, Normal Voice, No Airway Compromise Head: Atraumatic, Normocephalic Neck: Normal Inspection, Supple, Non-Tender, Full Range of Motion Respiratory/Chest: Respiratory Distress, Decreased Breath Sounds, Crackles, Wheezing Cardiovascular: Normal Peripheral Pulses, Regular Rate, Rhythm, No Edema, No Gallop, No JVD, No Murmur, No Rub Peripheral Pulses: 2+: Radial (L), Radial (R) GI/Abdominal: Normal Bowel Sounds, Soft, Non-Tender (Female) Exam: Deferred Rectal (Female) Exam: Deferred Back Exam: Normal Inspection, Decreased Range of Motion Extremities: Normal Inspection, Normal Range of Motion, Non-Tender, Normal Capillary Refill, No Pedal Edema Neurological: Alert, Oriented, CN II-XII Intact, Normal Cognition, Normal Gait, Normal Reflexes, No Motor/Sensory Deficits Psychiatric: Normal Affect, Normal Mood, Anxious Skin Exam: Warm, Dry, Intact, Normal Color, No Rash Lymphatic: No Adenopathy Course - Radiology Interpretation Free Text/Narrative:: Chest xray: PROCEDURE INFORMATION: Exam: XR Chest, 1 View Exam date and time: 06/17/2020 6:17 PM Age: 80 years old Clinical indication: Other: Chest pain TECHNIQUE: Imaging protocol: XR of the chest Views: 1 view. COMPARISON: CR Chest 1V Frontal 05/12/2020 6:08 PM FINDINGS: Lungs: The lungs are hyperinflated, consistent with underlying small airways disease. Atelectatic and/or early infiltrative changes noted within both lung bases. Pleural spaces: There is no evidence of pneumothorax. There are no pleural effusions present. Heart/Mediastinum: The heart demonstrates mild diffuse enlargement. Vasculature: The vasculature demonstrates diffuse mild atherosclerotic calcification. Bones/joints: Unremarkable. IMPRESSION: 1. The lungs are hyperinflated, consistent with underlying small airways disease. 2. Atelectatic and/or early infiltrative changes noted within both lung bases. Thank you for allowing us to participate in the care of your patient. Dictated and Authenticated by: Renzo Yanes DO 06/17/2020 6:21 PM Central Time ([place] & [place]) See rad report Departure - Departure Disposition: Home, Self-Care 01 Clinical Impression: COPD (chronic obstructive pulmonary disease) Qualifiers: COPD type: COPD with acute exacerbation Qualified Code(s): J44.1 - Chronic obstructive pulmonary disease with (acute) exacerbation - Discharge Information Instructions: Chronic Obstructive Pulmonary Disease, [id number] Forms: ED Department Discharge Additional Instructions: Clinic follow up on Saturday, sooner if fever or worsening shortness of breathing use oxygen at home home medications per usual Sepsis Event Note (ED) - Evaluation Sepsis Screening Result: No Definite Risk <Debby Rider - Last Filed: 06/18/20 02:06> Course - Vital Signs Last Recorded V/S: Last Vital Signs Temp 98.1 F 06/17/20 17:27 Pulse 82 06/17/20 17:27 Resp 18 06/17/20 17:27 BP 135/74 06/17/20 17:27 Pulse Ox 99 06/17/20 17:27 - Orders/Labs/Meds Orders: Active Orders 24 hr Category Date Time Status BLOOD GAS ARTERIAL [BG] Stat Lab 06/17/20 18:09 Ordered CULTURE BLOOD [BC] Stat Lab 06/17/20 18:20 Received CULTURE BLOOD [BC] Stat Lab 06/17/20 18:25 Results Blood Culture x2 Reflex Set [OM.PC] Stat Oth 06/17/20 18:08 Ordered Labs: Laboratory Tests 06/17/20 06/17/20 06/17/20 Range/Units 18:20 18:20 18:20 WBC 6.1 (5.0-10.0) 10^3/uL RBC 4.02 L (4.2-5.4) 10^6/uL Hgb 10.8 L (12.0-16.0) g/dL Hct 33.1 L (37.0-47.0) % MCV 82.3 (80-100) fL MCH 26.9 L (27.0-34.0) pg MCHC 32.6 L (33.0-35.0) g/dL Plt Count 249 (150-450) 10^3/uL Neut % (Auto) 53.4 (42.2-75.2) % Lymph % (Auto) 27.4 (20.5-50.1) % Faulkner % (Auto) 14.4 H (2-8) % Eos % (Auto) 4.3 H (1.0-3.0) % Baso % (Auto) 0.5 (0.0-1.0) % PT 9.9 (9.0-12.0) SEC INR 1.0 (0.9-1.2) D-Dimer, Quantitative 450 H (0-400) ng/mL Sodium 134 L (136-145) mmol/L Potassium 3.9 (3.5-5.1) mmol/L Chloride 98 (98-107) mmol/L Carbon Dioxide 26 (21-32) mmol/L Anion Gap 13.9 H (7-13) mEq/L BUN 12 (7-18) mg/dL Creatinine 0.76 (0.55-1.02) mg/dL Est Cr Clr Drug Dosing TNP Estimated GFR (MDRD) > 60 BUN/Creatinine Ratio 15.8 (No establ ref range) Glucose 149 H (74-99) mg/dL Lactic Acid (0.4-2.0) mmol/L Calcium 8.4 L (8.5-10.1) mg/dL Total Bilirubin 0.5 (0.2-1.0) mg/dL AST 57 H (15-37) U/L ALT 42 (14-59) U/L Alkaline Phosphatase 117 H (46-116) U/L Troponin I < 0.017 (0.000-0.056) ng/mL B-Natriuretic Peptide 25 (0-100) pg/ml Total Protein 7.2 (6.4-8.2) g/dL Albumin 3.2 L (3.4-5.0) g/dL Globulin 4.0 Albumin/Globulin Ratio 0.80 SARS-CoV-2 RNA (KHOA) (NEGATIVE) 06/17/20 06/17/20 Range/Units 18:20 19:50 WBC (5.0-10.0) 10^3/uL RBC (4.2-5.4) 10^6/uL Hgb (12.0-16.0) g/dL Hct (37.0-47.0) % MCV (80-100) fL MCH (27.0-34.0) pg MCHC (33.0-35.0) g/dL Plt Count (150-450) 10^3/uL Neut % (Auto) (42.2-75.2) % Lymph % (Auto) (20.5-50.1) % Faulkner % (Auto) (2-8) % Eos % (Auto) (1.0-3.0) % Baso % (Auto) (0.0-1.0) % PT (9.0-12.0) SEC INR (0.9-1.2) D-Dimer, Quantitative (0-400) ng/mL Sodium (136-145) mmol/L Potassium (3.5-5.1) mmol/L Chloride (98-107) mmol/L Carbon Dioxide (21-32) mmol/L Anion Gap (7-13) mEq/L BUN (7-18) mg/dL Creatinine (0.55-1.02) mg/dL Est Cr Clr Drug Dosing Estimated GFR (MDRD) BUN/Creatinine Ratio (No establ ref range) Glucose (74-99) mg/dL Lactic Acid 1.3 (0.4-2.0) mmol/L Calcium (8.5-10.1) mg/dL Total Bilirubin (0.2-1.0) mg/dL AST (15-37) U/L ALT (14-59) U/L Alkaline Phosphatase (46-116) U/L Troponin I (0.000-0.056) ng/mL B-Natriuretic Peptide (0-100) pg/ml Total Protein (6.4-8.2) g/dL Albumin (3.4-5.0) g/dL Globulin Albumin/Globulin Ratio SARS-CoV-2 RNA (KHOA) Negative (NEGATIVE) Meds: Medications Discontinued Medications Generic Name Dose Route Start Last Admin Trade Name Freq PRN Reason Stop Dose Admin Albuterol 2.5 mg 06/17/20 21:06 06/17/20 21:11 Proventil Neb Soln NEB 06/17/20 21:07 2.5 mg ONETIME ONE Administration - Re-Assessments/Exams Free Text/Narrative Re-Assessment/Exam: 06/18/20 02:04 Reports breathing improved and wanting to go home. Decreased wheezing. Patient has removed oxygen and maintaining sats 92-94 on room air. Departure - Departure Time of Disposition: 21:20 Condition: Good - Discharge Information *PRESCRIPTION DRUG MONITORING PROGRAM REVIEWED*: No *COPY OF PRESCRIPTION DRUG MONITORING REPORT IN PATIENT AARON: No Sepsis Event Note (ED) - Focused Exam Vital Signs: Vital Signs Temp Pulse Resp BP Pulse Ox 06/17/20 17:27 98.1 F 82 18 135/74 99
[2020-06-17 18:51] LABS: ANION GAP 13.9 mEq/L (7-13); CHLORIDE,CL 98 mmol/L (98-107); SODIUM,NA 134 mmol/L (136-145)
[2020-06-17] MEDS ORDERED: Albuterol 0.083% 2.5 MG/3 ML Neb Soln NEB ONE (21:06)
== END 2020-06-17 21:30 | disposition home or self-care (01) ==
LOC: DL.ED 17:05
DX: J44.1 Chronic obstructive pulmonary disease with (acute) exacerbation (principal); I10 Essential (primary) hypertension; E11.21 Type 2 diabetes mellitus with diabetic nephropathy; M19.90 Unspecified osteoarthritis, unspecified site; D64.9 Anemia, unspecified; Z88.1 Allergy status to other antibiotic agents; Z88.0 Allergy status to penicillin; Z88.5 Allergy status to narcotic agent; Z79.899 Other long term (current) drug therapy; Z79.82 Long term (current) use of aspirin; Z20.822 Contact with and (suspected) exposure to COVID-19
CPT/HCPCS: 36415; 71045; 80053; 83605; 83880; 84484; 85025; 85379; 85610; 87040; 93005; 99285; U0002; 99283; J7613-GY

== ENCOUNTER 2020-08-13 15:58 | Emergency (ER) | payer MEDICARE ==
[2020-08-13] MEDS ORDERED: Lidocaine 1% 30 ML SDV INJECT ONE (16:16)
[2020-08-13 16:29] VITALS: BP 132/59; PULSE 102
--- NOTE | 2020-08-13 16:41 | EDM.PDOC ---
<Jc Espino - Last Filed: 08/13/20 16:36> ED HPI GENERAL MEDICAL PROBLEM - General Chief Complaint: Laceration Stated Complaint: LEFT FINGER CAUGHT ON DOOR Time Seen by Provider: 08/13/20 16:36 Source of Information: Reports: Patient History Limitations: Reports: No Limitations - History of Present Illness INITIAL COMMENTS - FREE TEXT/NARRATIVE: Sunshine is a 80 year old female presenting to the ED with a left finger laceration that she sustained when a car door closed on her finger this morning. Since the injury the laceration has been hemostatic, she has minimal pain over the area. Her last Tetanus vaccine was last year. She has good sensation and mobility in the finger, but is limited due to pain. Onset: Today - Related Data Allergies Allergy/AdvReac Type Severity Reaction Status Date / Time erythromycin base Allergy Unknown Rash Verified 08/13/20 16:09 [Erythromycin Base] ampicillin AdvReac Unknown swelling Verified 08/13/20 16:09 of legs and feet codeine AdvReac Unknown dizzy and Verified 08/13/20 16:09 lightheaded Penicillins AdvReac Unknown swelling Verified 08/13/20 16:09 of legs and feet Home Meds: Home Meds Hydrochlorothiazide 50 mg PO DAILY 07/23/13 [History] Lisinopril 40 mg PO DAILY 07/23/13 [History] Tiotropium [Spiriva Handihaler] 18 mcg INH DAILY 07/23/13 [History] metFORMIN [Glucophage] 500 mg PO DAILY 07/23/13 [History] Aspirin [Halfprin] 81 mg PO BRK 05/11/15 [History] Sertraline [Zoloft] 50 mg PO DAILY 08/27/17 [History] Acetaminophen [Acetaminophen Extra Strength] 1,000 mg pe PO Q6HR PRN 10/13/18 [History] Budesonide [Pulmicort] 1 vial IH BID 10/13/18 [History] Formoterol Fumarate [Perforomist] 2 ml IH BID 10/13/18 [History] Albuterol Sulfate [Albuterol Sulfate Hfa] 1 puff IH DAILY PRN 10/14/18 [History] Carboxymethylcellulose Sodium [Lubricant Eye Drops] 1 drop EYEBOTH QID PRN 10/14/18 [History] Cholecalciferol (Vitamin D3) [Vitamin D3] 1,000 unit PO DAILY 10/14/18 [History] Ferrous Gluconate 324 mg PO DAILY 10/14/18 [History] Benzonatate 100 mg PO TID PRN 05/12/20 [History] Donepezil [Aricept] 5 mg PO BEDTIME 05/12/20 [History] Loratadine 10 mg PO DAILY 05/12/20 [History] Melatonin 3 mg PO BEDTIME 05/12/20 [History] Multivitamin with Minerals [Multivitamins with Minerals] 1 each PO DAILY 05/12/20 [History] Ondansetron [Ondansetron ODT] 4 mg PO Q8H PRN 05/12/20 [History] Spironolactone [Aldactone] 25 mg PO DAILY 05/12/20 [History] Vitamin E (Dl,Tocopheryl Acet) [Vitamin E] 450 mg PO DAILY 05/12/20 [History] Past Medical History - Past Health History Medical/Surgical History: Denies Medical/Surgical History HEENT History: Reports: None Cardiovascular History: Reports: Hypertension Respiratory History: Reports: Asthma, COPD, SOB Gastrointestinal History: Reports: Other (See Below) Other Gastrointestinal History: Appendicitis 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: Musculoskeletal History: Reports: Arthritis Neurological History: Reports: Head Trauma Psychiatric History: Reports: Anxiety, Depression, Panic Attack Endocrine/Metabolic History: Reports: Diabetes, Type II Hematologic History: Reports: Anemia, Blood Transfusion(s) Immunologic History: Reports: None Oncologic (Cancer) History: Reports: None Dermatologic History: Reports: None - Infectious Disease History Infectious Disease History: Reports: Measles, Shingles Other Infectious Disease History: 02/12/18 recent diagnosis of shingles - Past Surgical History HEENT Surgical History: Reports: Tonsillectomy GI Surgical History: Reports: Appendectomy, Cholecystectomy Other GI Surgeries/Procedures: Appendectomy Musculoskeletal Surgical History: Reports: Arthroscopic Knee Social & Family History - Family History Family Medical History: No Pertinent Family History - Tobacco Use Tobacco Use Status *Q: Never Tobacco User - Caffeine Use Caffeine Use: Reports: Coffee - Recreational Drug Use Recreational Drug Use: No - Living Situation & Occupation Living situation: Reports: with Family Occupation: Retired ED ROS GENERAL - Review of Systems Review Of Systems: Comprehensive ROS is negative, except as noted in HPI. ED EXAM, SKIN/RASH Exam: See Below Exam Limited By: No Limitations Eye Exam: Bilateral Eye: EOMI Ears: Normal External Exam Respiratory/Chest: No Respiratory Distress, Lungs Clear, Normal Breath Sounds Cardiovascular: Normal Peripheral Pulses, Regular Rate, Rhythm Extremities: Normal Inspection, Other (Tenderness in left middle finger finger tip ) Neurological: Alert, Oriented, No Motor/Sensory Deficits Skin: Wound/Incision Location, Skin: Upper Extremity, Left ED SKIN PROCEDURES - Laceration/Wound Repair Left Upper Digit - 3rd (Middle) Appearance: Superficial Anesthetic Type: Local Local Anesthesia - Lidocaine (Xylocaine): 1% Plain Local Anesthetic Volume: 3cc Skin Prep: Isopropyl Alcohol (Alcohol) Saline Irrigation (cc's): 10 Exploration/Debridement/Repair: No Foreign Material Found Closed with: Sutures Lac/Wound length In cm: 2.5 Suture Size: 4-0 # of Sutures: 3 Suture Type: Other (Ethilone) Departure - Departure Time of Disposition: 16:45 Disposition: Home, Self-Care 01 Clinical Impression: Laceration of finger of left hand Qualifiers: Encounter type: initial encounter Finger: middle finger Damage to nail status: without damage Foreign body presence: without foreign body Qualified Code(s): S61.213A - Laceration without foreign body of left middle finger without damage to nail, initial encounter - Discharge Information *PRESCRIPTION DRUG MONITORING PROGRAM REVIEWED*: Not Applicable *COPY OF PRESCRIPTION DRUG MONITORING REPORT IN PATIENT AARON: Not Applicable Instructions: Laceration Care, Adult, [id number] Forms: ED Department Discharge Additional Instructions: Discussed signs of infection and importance of following up with a medical professional if present, will need sutures removed in 7-10 days. Sepsis Event Note (ED) - Evaluation Sepsis Screening Result: No Definite Risk <Debby Rider - Last Filed: 08/13/20 16:51> Course - Vital Signs Last Recorded V/S: Last Vital Signs Temp 97.8 F 08/13/20 16:10 Pulse 102 H 08/13/20 16:10 Resp 22 H 08/13/20 16:10 BP 132/59 L 08/13/20 16:10 Pulse Ox 95 08/13/20 16:10 - Orders/Labs/Meds Orders: Active Orders 24 hr Category Date Time Status Fingers Third Digit Lt F2 [CR] Urgent Exams 08/13/20 16:16 Ordered Meds: Medications Discontinued Medications Generic Name Dose Route Start Last Admin Trade Name Freq PRN Reason Stop Dose Admin Lidocaine HCl 30 ml 08/13/20 16:16 08/13/20 16:18 Lidocaine 1% 30 Ml Sdv INJECT 08/13/20 16:17 30 ml ONETIME ONE Administration - Re-Assessments/Exams Free Text/Narrative Re-Assessment/Exam: 08/13/20 16:51 I have examined the patient. I have discussed findings and treatment plan with resident. I agree with assessment plan and documentation. Sepsis Event Note (ED) - Focused Exam Vital Signs: Vital Signs Temp Pulse Resp BP Pulse Ox 08/13/20 16:10 97.8 F 102 H 22 H 132/59 L 95 - My Orders Last 24 Hours: My Active Orders 08/13/20 16:16 Fingers Third Digit Lt F2 [CR] Urgent - Assessment/Plan Last 24 Hours: My Active Orders 08/13/20 16:16 Fingers Third Digit Lt F2 [CR] Urgent
--- NOTE | 2020-08-13 16:57 | CR ---
PROCEDURE INFORMATION: Exam: XR Left Finger(s) Exam date and time: 08/13/2020 4:39 PM Age: 80 years old Clinical indication: Other: Pain; Additional info: Slammed in car door dip, pain , laceration TECHNIQUE: Imaging protocol: XR Left fingers. Views: Minimum 2 views. COMPARISON: No relevant prior studies available. FINDINGS: Bones/joints: Multiple views of the left 3rd/middle finger are performed. [id number] grade joint space narrowing is present. There is diffuse decrease in overall bone mineral density. No fractures are present. Alignment is anatomic. Soft tissues: Mild soft tissue swelling is noted. IMPRESSION: Degenerative change and soft tissue swelling. No acute osseous injury or foreign body present.
== END 2020-08-13 16:51 | disposition home or self-care (01) ==
LOC: DL.ED 15:58
DX: S61.213A Laceration without foreign body of left middle finger without damage to nail, initial encounter (principal); I10 Essential (primary) hypertension; J44.9 Chronic obstructive pulmonary disease, unspecified; E11.21 Type 2 diabetes mellitus with diabetic nephropathy; M19.90 Unspecified osteoarthritis, unspecified site; Z79.82 Long term (current) use of aspirin; Z79.899 Other long term (current) drug therapy; Z88.0 Allergy status to penicillin; Z79.84 Long term (current) use of oral hypoglycemic drugs; Z88.1 Allergy status to other antibiotic agents; Z88.5 Allergy status to narcotic agent; W23.0XXA Caught, crushed, jammed, or pinched between moving objects, initial encounter
CPT/HCPCS: 12001; 73140-F2; 99283-25

== ENCOUNTER 2020-09-24 11:08 | Emergency (ER) | payer MEDICARE ==
[2020-09-24 11:30] VITALS: BP 145/71; PULSE 91
--- NOTE | 2020-09-24 12:06 | CR ---
PROCEDURE INFORMATION: Exam: XR Chest Exam date and time: 09/24/2020 11:37 AM Age: 80 years old Clinical indication: Shortness of breath; Additional info: SOB TECHNIQUE: Imaging protocol: XR of the chest. Views: 1 view. COMPARISON: No relevant prior studies available. FINDINGS: Lungs: There is mild increase in interstitial markings within the lungs. This is nonspecific. No pneumonia or pulmonary edema is present. Pleural spaces: Unremarkable. No pleural effusion. No pneumothorax. Heart/Mediastinum: Heart size is mildly prominent. Bones/joints: Unremarkable. IMPRESSION: Cardiomegaly and chronic interstitial change. No pneumonia or pulmonary edema present.
[2020-09-24 12:42] LABS: ANION GAP 13.2 mEq/L (7-13); CHLORIDE,CL 103 mmol/L (98-107); SODIUM,NA 140 mmol/L (136-145)
--- NOTE | 2020-09-24 13:04 | EDM.PDOC ---
ED HPI GENERAL MEDICAL PROBLEM - General Chief Complaint: Respiratory Problem Stated Complaint: IN BY [facility] Time Seen by Provider: 09/24/20 11:50 Source of Information: Reports: Patient History Limitations: Reports: No Limitations - History of Present Illness INITIAL COMMENTS - FREE TEXT/NARRATIVE: ED with c/o SOB today . No fever chills. No chest pain. Has oxygen at home bu tdidn't seem to be helping. Denied vomiting or diarrhea. - Related Data Allergies Allergy/AdvReac Type Severity Reaction Status Date / Time erythromycin base Allergy Unknown Rash Verified 09/24/20 11:34 [Erythromycin Base] ampicillin AdvReac Unknown swelling Verified 09/24/20 11:34 of legs and feet codeine AdvReac Unknown dizzy and Verified 09/24/20 11:34 lightheaded Penicillins AdvReac Unknown swelling Verified 09/24/20 11:34 of legs and feet Home Meds: Home Meds Hydrochlorothiazide 50 mg PO DAILY 07/23/13 [History] Lisinopril 40 mg PO DAILY 07/23/13 [History] Tiotropium [Spiriva Handihaler] 18 mcg INH DAILY 07/23/13 [History] metFORMIN [Glucophage] 500 mg PO DAILY 07/23/13 [History] Aspirin [Halfprin] 81 mg PO BRK 05/11/15 [History] Sertraline [Zoloft] 50 mg PO DAILY 08/27/17 [History] Acetaminophen [Acetaminophen Extra Strength] 1,000 mg pe PO Q6HR PRN 10/13/18 [History] Budesonide [Pulmicort] 1 vial IH BID 10/13/18 [History] Formoterol Fumarate [Perforomist] 2 ml IH BID 10/13/18 [History] Albuterol Sulfate [Albuterol Sulfate Hfa] 1 puff IH DAILY PRN 10/14/18 [History] Carboxymethylcellulose Sodium [Lubricant Eye Drops] 1 drop EYEBOTH QID PRN 10/14/18 [History] Cholecalciferol (Vitamin D3) [Vitamin D3] 1,000 unit PO DAILY 10/14/18 [History] Ferrous Gluconate 324 mg PO DAILY 10/14/18 [History] Benzonatate 100 mg PO TID PRN 05/12/20 [History] Donepezil [Aricept] 5 mg PO BEDTIME 05/12/20 [History] Loratadine 10 mg PO DAILY 05/12/20 [History] Melatonin 3 mg PO BEDTIME 05/12/20 [History] Multivitamin with Minerals [Multivitamins with Minerals] 1 each PO DAILY 05/12/20 [History] Ondansetron [Ondansetron ODT] 4 mg PO Q8H PRN 05/12/20 [History] Spironolactone [Aldactone] 25 mg PO DAILY 05/12/20 [History] Vitamin E (Dl,Tocopheryl Acet) [Vitamin E] 450 mg PO DAILY 05/12/20 [History] Past Medical History - Past Health History Medical/Surgical History: Denies Medical/Surgical History HEENT History: Reports: None Cardiovascular History: Reports: Hypertension Respiratory History: Reports: Asthma, COPD, SOB Gastrointestinal History: Reports: Other (See Below) Other Gastrointestinal History: Appendicitis 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: Musculoskeletal History: Reports: Arthritis Neurological History: Reports: Head Trauma Psychiatric History: Reports: Anxiety, Depression, Panic Attack Endocrine/Metabolic History: Reports: Diabetes, Type II Hematologic History: Reports: Anemia, Blood Transfusion(s) Immunologic History: Reports: None Oncologic (Cancer) History: Reports: None Dermatologic History: Reports: None - Infectious Disease History Infectious Disease History: Reports: Measles, Shingles Other Infectious Disease History: 02/12/18 recent diagnosis of shingles - Past Surgical History HEENT Surgical History: Reports: Tonsillectomy GI Surgical History: Reports: Appendectomy, Cholecystectomy Other GI Surgeries/Procedures: Appendectomy Musculoskeletal Surgical History: Reports: Arthroscopic Knee Social & Family History - Family History Family Medical History: No Pertinent Family History - Tobacco Use Tobacco Use Status *Q: Former Tobacco User Used Tobacco, but Quit: Yes Month/Year Tobacco Last Used: 2009 - Caffeine Use Caffeine Use: Reports: Coffee - Recreational Drug Use Recreational Drug Use: No - Living Situation & Occupation Living situation: Reports: with Family Occupation: Retired ED ROS GENERAL - Review of Systems Review Of Systems: Comprehensive ROS is negative, except as noted in HPI. ED EXAM, GENERAL - Physical Exam Exam: See Below Exam Limited By: No Limitations General Appearance: Alert, No Apparent Distress Eye Exam: Bilateral Eye: EOMI Ears: Normal External Exam, Normal Canal, Hearing Grossly Normal Nose: Normal Inspection Throat/Mouth: Normal Inspection Head: Atraumatic, Normocephalic Neck: Normal Inspection Respiratory/Chest: No Respiratory Distress, Decreased Breath Sounds Cardiovascular: Normal Peripheral Pulses, Regular Rate, Rhythm GI/Abdominal: Normal Bowel Sounds, Soft, Non-Tender Back Exam: Normal Inspection Extremities: No Pedal Edema Neurological: Alert, Oriented, Normal Cognition Psychiatric: Normal Affect, Normal Mood #1 Interpretation EKG Date: 09/24/20 Time: 11:43 Rhythm: NSR Rate (Beats/Min): 82 [place]: Normal P-Wave: Present QRS: Wide (RBB, old inferior infarct) Course - Vital Signs Last Recorded V/S: Last Vital Signs Temp 97.9 F 09/24/20 11:29 Pulse 91 09/24/20 11:29 Resp 28 H 09/24/20 11:29 BP 145/71 H 09/24/20 11:29 Pulse Ox 97 09/24/20 11:29 - Orders/Labs/Meds Labs: Laboratory Tests 09/24/20 09/24/20 09/24/20 Range/Units 11:39 11:39 11:39 WBC 9.0 (5.0-10.0) 10^3/uL RBC 4.72 (4.2-5.4) 10^6/uL Hgb 12.2 (12.0-16.0) g/dL Hct 38.9 (37.0-47.0) % MCV 82.4 (80-100) fL MCH 25.8 L (27.0-34.0) pg MCHC 31.4 L (33.0-35.0) g/dL Plt Count 276 (150-450) 10^3/uL Neut % (Auto) 70.7 (42.2-75.2) % Lymph % (Auto) 17.2 L (20.5-50.1) % [place] % (Auto) 9.6 H (2-8) % Eos % (Auto) 2.3 (1.0-3.0) % Baso % (Auto) 0.2 (0.0-1.0) % Sodium 140 (136-145) mmol/L Potassium 4.2 (3.5-5.1) mmol/L Chloride 103 (98-107) mmol/L Carbon Dioxide 28 (21-32) mmol/L Anion Gap 13.2 H (7-13) mEq/L BUN 10 (7-18) mg/dL Creatinine 0.88 (0.55-1.02) mg/dL Est Cr Clr Drug Dosing TNP Estimated GFR (MDRD) > 60 BUN/Creatinine Ratio 11.4 (No establ ref range) Glucose 151 H (70-99) mg/dL Lactic Acid 1.6 (0.4-2.0) mmol/L Calcium 8.3 L (8.5-10.1) mg/dL Total Bilirubin 0.8 (0.2-1.0) mg/dL AST 38 H (15-37) U/L ALT 37 (14-59) U/L Alkaline Phosphatase 101 (46-116) U/L Troponin I < 0.017 (0.000-0.056) ng/mL B-Natriuretic Peptide 20 (0-100) pg/ml Total Protein 7.3 (6.4-8.2) g/dL Albumin 3.4 (3.4-5.0) g/dL Globulin 3.9 Albumin/Globulin Ratio 0.9 Departure - Departure Time of Disposition: 13:02 Disposition: Home, Self-Care 01 Condition: Good Clinical Impression: Dyspnea, COLD, Chronic obstructive lung disease - Discharge Information *PRESCRIPTION DRUG MONITORING PROGRAM REVIEWED*: No *COPY OF PRESCRIPTION DRUG MONITORING REPORT IN PATIENT AARON: No Instructions: Chronic Obstructive Pulmonary Disease, [id number] Forms: ED Department Discharge Additional Instructions: Home medications Use inhaler or nebulizer every 4 hours as neededfor breathing difficulty clinic follow up on Saturday Wear oxygen Sepsis Event Note (ED) - Evaluation Sepsis Screening Result: No Definite Risk
== END 2020-09-24 13:08 | disposition home or self-care (01) ==
LOC: DL.ED 11:08
DX: J44.9 Chronic obstructive pulmonary disease, unspecified (principal); J00 Acute nasopharyngitis [common cold]; I10 Essential (primary) hypertension; E11.9 Type 2 diabetes mellitus without complications; Z88.0 Allergy status to penicillin; Z88.5 Allergy status to narcotic agent; Z87.891 Personal history of nicotine dependence; Z88.1 Allergy status to other antibiotic agents; Z79.82 Long term (current) use of aspirin; Z79.84 Long term (current) use of oral hypoglycemic drugs
CPT/HCPCS: 36415; 71045; 80053; 83605; 83880; 84484; 85025; 93005; 93010; 99283; 99285-25

== ENCOUNTER 2020-10-19 19:15 | Emergency (ER) | payer MEDICARE ==
[2020-10-19 20:53] VITALS: BP 155/79
[2020-10-19] MEDS ORDERED: Albuterol/Ipratropium 3.0-0.5 MG/3 ML Neb Soln NEB ONE (21:37)
--- NOTE | 2020-10-19 21:40 | EDM.PDOC ---
ED HPI GENERAL MEDICAL PROBLEM - General Chief Complaint: General Stated Complaint: REALLY STRUGGLING TO BREATH / COPD Time Seen by Provider: 10/19/20 21:40 Source of Information: Reports: Patient History Limitations: Reports: No Limitations - History of Present Illness INITIAL COMMENTS - FREE TEXT/NARRATIVE: ED with c/o cough for 3 weeks, hurts ot cough past 2 days, pain right upper chest with movement and cough. No fever. Tylenol every 6 hours but not helping. Last neb this am. Grand daughter present states patient only wearing home oxygen 1/2 the time at home. Was in [place] all day with family just back into town prior to coming to ED. Flank Pain Score (Numeric/FACES): 8 - Related Data Allergies Allergy/AdvReac Type Severity Reaction Status Date / Time erythromycin base Allergy Unknown Rash Verified 09/24/20 11:34 [Erythromycin Base] ampicillin AdvReac Unknown swelling Verified 09/24/20 11:34 of legs and feet codeine AdvReac Unknown dizzy and Verified 09/24/20 11:34 lightheaded Penicillins AdvReac Unknown swelling Verified 09/24/20 11:34 of legs and feet Home Meds: Home Meds Hydrochlorothiazide 50 mg PO DAILY 07/23/13 [History] Lisinopril 40 mg PO DAILY 07/23/13 [History] Tiotropium [Spiriva Handihaler] 18 mcg INH DAILY 07/23/13 [History] metFORMIN [Glucophage] 500 mg PO DAILY 07/23/13 [History] Aspirin [Halfprin] 81 mg PO BRK 05/11/15 [History] Sertraline [Zoloft] 50 mg PO DAILY 08/27/17 [History] Acetaminophen [Acetaminophen Extra Strength] 1,000 mg pe PO Q6HR PRN 10/13/18 [History] Budesonide [Pulmicort] 1 vial IH BID 10/13/18 [History] Formoterol Fumarate [Perforomist] 2 ml IH BID 10/13/18 [History] Albuterol Sulfate [Albuterol Sulfate Hfa] 1 puff IH DAILY PRN 10/14/18 [History] Carboxymethylcellulose Sodium [Lubricant Eye Drops] 1 drop EYEBOTH QID PRN 10/14/18 [History] Cholecalciferol (Vitamin D3) [Vitamin D3] 1,000 unit PO DAILY 10/14/18 [History] Ferrous Gluconate 324 mg PO DAILY 10/14/18 [History] Benzonatate 100 mg PO TID PRN 05/12/20 [History] Donepezil [Aricept] 5 mg PO BEDTIME 05/12/20 [History] Loratadine 10 mg PO DAILY 05/12/20 [History] Melatonin 3 mg PO BEDTIME 05/12/20 [History] Multivitamin with Minerals [Multivitamins with Minerals] 1 each PO DAILY 05/12/20 [History] Ondansetron [Ondansetron ODT] 4 mg PO Q8H PRN 05/12/20 [History] Spironolactone [Aldactone] 25 mg PO DAILY 05/12/20 [History] Vitamin E (Dl,Tocopheryl Acet) [Vitamin E] 450 mg PO DAILY 05/12/20 [History] Past Medical History - Past Health History Medical/Surgical History: Denies Medical/Surgical History HEENT History: Reports: None Cardiovascular History: Reports: Hypertension Respiratory History: Reports: Asthma, COPD, SOB Gastrointestinal History: Reports: Other (See Below) Other Gastrointestinal History: Appendicitis 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 [employer]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: Musculoskeletal History: Reports: Arthritis Neurological History: Reports: Head Trauma Psychiatric History: Reports: Anxiety, Depression, Panic Attack Endocrine/Metabolic History: Reports: Diabetes, Type II Hematologic History: Reports: Anemia, Blood Transfusion(s) Immunologic History: Reports: None Oncologic (Cancer) History: Reports: None Dermatologic History: Reports: None - Infectious Disease History Infectious Disease History: Reports: Measles, Shingles Other Infectious Disease History: 02/12/18 recent diagnosis of shingles - Past Surgical History HEENT Surgical History: Reports: Tonsillectomy Respiratory Surgical History: Reports: None GI Surgical History: Reports: Appendectomy, Cholecystectomy Other GI Surgeries/Procedures: Appendectomy Musculoskeletal Surgical History: Reports: Arthroscopic Knee Social & Family History - Family History Family Medical History: No Pertinent Family History - Tobacco Use Tobacco Use Status *Q: Never Tobacco User Second Hand Smoke Exposure: No - Caffeine Use Caffeine Use: Reports: None - Recreational Drug Use Recreational Drug Use: No - Living Situation & Occupation Living situation: Reports: with Family Occupation: Retired ED ROS GENERAL - Review of Systems Review Of Systems: Comprehensive ROS is negative, except as noted in HPI. ED EXAM, GENERAL - Physical Exam Exam: See Below Exam Limited By: No Limitations General Appearance: Alert, Anxious, Mild Distress Eye Exam: Bilateral Eye: EOMI Ears: Normal External Exam Nose: Normal Inspection Throat/Mouth: Normal Inspection Head: Atraumatic Neck: Normal Inspection, Full Range of Motion Respiratory/Chest: No Respiratory Distress, Wheezing (left greater), Splinting (with cough) Cardiovascular: Regular Rate, Rhythm GI/Abdominal: Normal Bowel Sounds, Soft Back Exam: Normal Inspection Neurological: Alert, Oriented, Normal Cognition Psychiatric: Anxious Skin Exam: Warm, Dry, Intact, Normal Color Course - Vital Signs Last Recorded V/S: Last Vital Signs Temp 98.5 F 10/19/20 19:44 Pulse 75 10/19/20 21:38 Resp 20 10/19/20 19:44 BP 155/79 H 10/19/20 19:44 Pulse Ox 97 10/19/20 21:38 - Orders/Labs/Meds Labs: Laboratory Tests 10/19/20 10/19/20 Range/Units 21:48 21:48 WBC 9.7 (5.0-10.0) 10^3/uL RBC 5.02 (4.2-5.4) 10^6/uL Hgb 13.3 (12.0-16.0) g/dL Hct 41.4 (37.0-47.0) % MCV 82.5 (80-100) fL MCH 26.5 L (27.0-34.0) pg MCHC 32.1 L (33.0-35.0) g/dL Plt Count 309 (150-450) 10^3/uL Neut % (Auto) 71.0 (42.2-75.2) % Lymph % (Auto) 15.4 L (20.5-50.1) % [place] % (Auto) 11.6 H (2-8) % Eos % (Auto) 1.8 (1.0-3.0) % Baso % (Auto) 0.2 (0.0-1.0) % Sodium 138 (136-145) mmol/L Potassium 4.4 (3.5-5.1) mmol/L Chloride 101 (98-107) mmol/L Carbon Dioxide 29 (21-32) mmol/L Anion Gap 12.4 (7-13) mEq/L BUN 12 (7-18) mg/dL Creatinine 1.01 (0.55-1.02) mg/dL Est Cr Clr Drug Dosing 36.75 mL/min Estimated GFR (MDRD) 53 BUN/Creatinine Ratio 11.9 (No establ ref range) Glucose 127 H (70-99) mg/dL Calcium 8.7 (8.5-10.1) mg/dL Total Bilirubin 0.7 (0.2-1.0) mg/dL AST 28 (15-37) U/L ALT 33 (14-59) U/L Alkaline Phosphatase 98 (46-116) U/L B-Natriuretic Peptide 15 (0-100) pg/ml Total Protein 7.8 (6.4-8.2) g/dL Albumin 3.6 (3.4-5.0) g/dL Globulin 4.2 Albumin/Globulin Ratio 0.9 Meds: Medications Discontinued Medications Generic Name Dose Route Start Last Admin Trade Name Freq PRN Reason Stop Dose Admin Albuterol/Ipratropium 3 ml 10/19/20 21:37 10/19/20 21:44 Albuterol/Ipratropium 3.0-0.5 Mg/3 Ml Neb Soln NEB 10/19/20 21:38 3 ml ONETIME ONE Administration Benzonatate 100 mg 10/19/20 21:50 10/19/20 21:58 Benzonatate 100 Mg Cap PO 10/19/20 21:51 100 mg ONETIME ONE Administration Ketorolac Tromethamine 15 mg 10/19/20 21:50 10/19/20 22:17 Ketorolac 30 Mg/Ml Sdv IM 10/19/20 21:51 15 mg ONETIME ONE Administration - Re-Assessments/Exams Free Text/Narrative Re-Assessment/Exam: 0Decreased cough, pain improved prior to discharge. Departure - Departure Time of Disposition: 23:16 Disposition: Home, Self-Care 01 Condition: Good Clinical Impression: Cough, Chest wall pain COPD (chronic obstructive pulmonary disease) Qualifiers: COPD type: COPD with acute exacerbation Qualified Code(s): J44.1 - Chronic obstructive pulmonary disease with (acute) exacerbation - Discharge Information *PRESCRIPTION DRUG MONITORING PROGRAM REVIEWED*: No *COPY OF PRESCRIPTION DRUG MONITORING REPORT IN PATIENT AARON: No Instructions: Cough, Adult, [id number], Pleurodynia Forms: ED Department Discharge Additional Instructions: humidifier teselon 100mg every 8 hours as needed for cough robitussin every 4 hours s needed to thin secretions continue tylenol every 6 hours as needed for painalbuterol nebs every 4 hours as needed Sepsis Event Note (ED) - Evaluation Sepsis Screening Result: No Definite Risk - Focused Exam Vital Signs: Vital Signs Temp Pulse Resp BP Pulse Ox Pulse Ox 10/19/20 21:38 75 97 10/19/20 19:44 98.5 F 95 20 155/79 H 98
[2020-10-19 21:47] VITALS: PULSE 75
[2020-10-19] MEDS ORDERED: Ketorolac 30 MG/ML SDV IM ONE (21:50)
[2020-10-19] MEDS ORDERED: Benzonatate 100 MG Cap PO ONE (21:50)
[2020-10-19 22:11] LABS: ANION GAP 12.4 mEq/L (7-13)
--- NOTE | 2020-10-19 23:23 | CR ---
PROCEDURE INFORMATION: Exam: XR Chest Exam date and time: 10/19/2020 10:08 PM Age: 80 years old Clinical indication: Cough; Additional info: Cough copd TECHNIQUE: Imaging protocol: XR of the chest. Views: 1 view. COMPARISON: 1. CR Chest 1V Frontal 09/24/2020 11:37 AM 2. CR Chest 1V Frontal 06/17/2020 6:17 PM 3. CR Chest 1V Frontal 05/12/2020 6:08 PM 4. CR Chest 1V Frontal 02/13/2020 5:11 PM FINDINGS: Lungs: Unremarkable. No consolidation. Pleural spaces: Unremarkable. No pleural effusion. No pneumothorax. Heart/Mediastinum: Unremarkable. No cardiomegaly. Bones/joints: Unremarkable. IMPRESSION: No acute findings.
== END 2020-10-19 23:31 | disposition home or self-care (01) ==
LOC: DL.ED 19:15
DX: J44.1 Chronic obstructive pulmonary disease with (acute) exacerbation (principal); I10 Essential (primary) hypertension; E11.21 Type 2 diabetes mellitus with diabetic nephropathy; Z79.82 Long term (current) use of aspirin; Z79.84 Long term (current) use of oral hypoglycemic drugs; Z88.0 Allergy status to penicillin; Z88.5 Allergy status to narcotic agent; Z88.1 Allergy status to other antibiotic agents
CPT/HCPCS: 36415; 71045; 80053; 83880; 85025; 96372; 99283; 99285; A9270; J1885; J7620-GY

== ENCOUNTER 2020-10-27 09:07 | Emergency (ER) | payer MEDICARE ==
[2020-10-27 10:33] VITALS: BP 138/65; PULSE 74
--- NOTE | 2020-10-27 10:59 | CR ---
EXAMINATION: Ribs 3V w Chest Rt SEX: Female AGE: 80 years CLINICAL HISTORY: 80-year-old female injured in fall (yesterday) and now pain right lateral ribs. Comparison 19 October 2020. INTERPRETATION: Abnormal. 1. Normal cardiac silhouette and mediastinal width. 2. No sign of lung contusion, atelectasis, pleural effusion or pneumothorax. 3. Acute FRACTURES posterior right seventh and eighth ribs. 4. No signs of heart failure, lung mass or lobar pneumonia. CONCLUSION: Acute new right 7 & 8th rib fractures.
[2020-10-27] MEDS ORDERED: Acetaminophen/HYDROcodone 325-5 MG Tab PO ONE (11:29)
--- NOTE | 2020-10-27 11:35 | EDM.PDOC ---
ED HPI GENERAL MEDICAL PROBLEM - General Chief Complaint: Chest Pain Stated Complaint: FELL / SEVERE SIDE AND BACK PAIN Time Seen by Provider: 10/27/20 11:25 Source of Information: Reports: Patient History Limitations: Reports: No Limitations - History of Present Illness INITIAL COMMENTS - FREE TEXT/NARRATIVE: This 80 yo female patient reports to the ED due to a ground level fall yesterday and right sided rib pain today. The patient reports she did hit her head during the fall, but had no loss of consciousness throughout the incident. The patient reports increased pain in her right chest with movement and deep breathing. 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 Right Chest Pain Score (Numeric/FACES): 10 - Related Data Allergies Allergy/AdvReac Type Severity Reaction Status Date / Time erythromycin base Allergy Unknown Rash Verified 10/27/20 10:42 [Erythromycin Base] ampicillin AdvReac Unknown swelling Verified 10/27/20 10:42 of legs and feet codeine AdvReac Unknown dizzy and Verified 10/27/20 10:42 lightheaded Penicillins AdvReac Unknown swelling Verified 10/27/20 10:42 of legs and feet Home Meds: Home Meds Hydrochlorothiazide 50 mg PO DAILY 07/23/13 [History] Lisinopril 40 mg PO DAILY 07/23/13 [History] Tiotropium [Spiriva Handihaler] 18 mcg INH DAILY 07/23/13 [History] metFORMIN [Glucophage] 500 mg PO DAILY 07/23/13 [History] Aspirin [Halfprin] 81 mg PO BRK 05/11/15 [History] Sertraline [Zoloft] 50 mg PO DAILY 08/27/17 [History] Acetaminophen [Acetaminophen Extra Strength] 1,000 mg pe PO Q6HR PRN 10/13/18 [History] Budesonide [Pulmicort] 1 vial IH BID 10/13/18 [History] Formoterol Fumarate [Perforomist] 2 ml IH BID 10/13/18 [History] Albuterol Sulfate [Albuterol Sulfate Hfa] 1 puff IH DAILY PRN 10/14/18 [History] Carboxymethylcellulose Sodium [Lubricant Eye Drops] 1 drop EYEBOTH QID PRN 10/14/18 [History] Cholecalciferol (Vitamin D3) [Vitamin D3] 1,000 unit PO DAILY 10/14/18 [History] Ferrous Gluconate 324 mg PO DAILY 10/14/18 [History] Benzonatate 100 mg PO TID PRN 05/12/20 [History] Donepezil [Aricept] 5 mg PO BEDTIME 05/12/20 [History] Loratadine 10 mg PO DAILY 05/12/20 [History] Melatonin 3 mg PO BEDTIME 05/12/20 [History] Multivitamin with Minerals [Multivitamins with Minerals] 1 each PO DAILY 05/12 [History] Ondansetron [Ondansetron ODT] 4 mg PO Q8H PRN 05/12/20 [History] Spironolactone [Aldactone] 25 mg PO DAILY 05/12/20 [History] Vitamin E (Dl,Tocopheryl Acet) [Vitamin E] 450 mg PO DAILY 05/12/20 [History] Past Medical History - Past Health History Medical/Surgical History: Denies Medical/Surgical History HEENT History: Reports: None Cardiovascular History: Reports: Hypertension Respiratory History: Reports: Asthma, COPD, SOB Gastrointestinal History: Reports: Other (See Below) Other Gastrointestinal History: Appendicitis 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: Musculoskeletal History: Reports: Arthritis Neurological History: Reports: Head Trauma Psychiatric History: Reports: Anxiety, Depression, Panic Attack Endocrine/Metabolic History: Reports: Diabetes, Type II Hematologic History: Reports: Anemia, Blood Transfusion(s) Immunologic History: Reports: None Oncologic (Cancer) History: Reports: None Dermatologic History: Reports: None - Infectious Disease History Infectious Disease History: Reports: Measles, Shingles Other Infectious Disease History: 02/12/18 recent diagnosis of shingles - Past Surgical History HEENT Surgical History: Reports: Tonsillectomy Respiratory Surgical History: Reports: None GI Surgical History: Reports: Appendectomy, Cholecystectomy Other GI Surgeries/Procedures: Appendectomy Musculoskeletal Surgical History: Reports: Arthroscopic Knee Social & Family History - Family History Family Medical History: No Pertinent Family History - Tobacco Use Tobacco Use Status *Q: Never Tobacco User - Caffeine Use Caffeine Use: Reports: None - Recreational Drug Use Recreational Drug Use: No - Living Situation & Occupation Living situation: Reports: with Family Occupation: Retired ED ROS GENERAL - Review of Systems Review Of Systems: Comprehensive ROS is negative, except as noted in HPI. ED EXAM, GENERAL - Physical Exam Exam: See Below Exam Limited By: No Limitations General Appearance: Alert, WD/WN, Moderate Distress Eye Exam: Bilateral Eye: EOMI, Normal Inspection, PERRL Ears: Normal External Exam, Normal Canal, Hearing Grossly Normal, Normal TMs Nose: Normal Inspection, Normal Mucosa, No Blood Throat/Mouth: Normal Inspection, Normal Lips, Normal Teeth, Normal Gums, Normal Oropharynx, Normal Voice, No Airway Compromise Head: Atraumatic, Normocephalic Neck: Normal Inspection, Supple, Non-Tender, Full Range of Motion Respiratory/Chest: No Respiratory Distress, No Accessory Muscle Use, Decreased Breath Sounds (due to decreased effort), Splinting Cardiovascular: Normal Peripheral Pulses, Regular Rate, Rhythm, No Edema, No Gallop, No JVD, No Murmur, No Rub GI/Abdominal: Normal Bowel Sounds, Soft, Non-Tender, No Organomegaly, No Distention, No Abnormal Bruit, No Mass (Female) Exam: Deferred Rectal (Female) Exam: Deferred Back Exam: Normal Inspection, Full Range of Motion, NT Extremities: Normal Inspection, Normal Range of Motion, Non-Tender, Normal Capillary Refill, No Pedal Edema Psychiatric: Normal Affect, Normal Mood Skin Exam: Warm, Dry, Intact, Normal Color, No Rash Lymphatic: No Adenopathy Course - Vital Signs Last Recorded V/S: Last Vital Signs Temp 97.6 F 10/27/20 10:31 Pulse 74 10/27/20 10:31 Resp 20 10/27/20 10:31 BP 138/65 10/27/20 10:31 Pulse Ox 94 L 10/27/20 10:31 - Orders/Labs/Meds Meds: Medications Discontinued Medications Generic Name Dose Route Start Last Admin Trade Name Freq PRN Reason Stop Dose Admin Hydrocodone Bitart/Acetaminophen 1 tab 10/27/20 11:29 10/27/20 11:38 Acetaminophen/Hydrocodone 325-5 Mg Tab PO 10/27/20 11:30 1 tab ONETIME ONE Administration - Re-Assessments/Exams Free Text/Narrative Re-Assessment/Exam: 10/27/20 12:13 The patient reports symptom improvement with ant Obion. Departure - Departure Time of Disposition: 12:14 Disposition: Home, Self-Care 01 Condition: Fair Clinical Impression: Right rib fracture Qualifiers: Encounter type: initial encounter Rib fracture type: multiple ribs Fracture type: closed Qualified Code(s): S22.41XA - Multiple fractures of ribs, right side, initial encounter for closed fracture - Discharge Information *PRESCRIPTION DRUG MONITORING PROGRAM REVIEWED*: Not Applicable *COPY OF PRESCRIPTION DRUG MONITORING REPORT IN PATIENT AARON: Not Applicable Instructions: Rib Fracture, [id number] Forms: ED Department Discharge Care Plan Goals: The patient and her daughter were advised of the examination and x-ray results during the visit. The patient was given an oral dose of Obion (5/325) with symptom relief. The patient was discharged with a script for Obion (5/325) #12 to take 1 by mouth every 6 hours as needed for pain. The patient may continue to take over the counter cough medications as directed. If the patient has any additional symptoms or concerns, the patient should either return to the emergency department or visit her primary care facility. Sepsis Event Note (ED) - Evaluation Sepsis Screening Result: No Definite Risk - Focused Exam Vital Signs: Vital Signs Temp Pulse Resp BP Pulse Ox 10/27/20 10:31 97.6 F 74 20 138/65 94 L
== END 2020-10-27 12:25 | disposition home or self-care (01) ==
LOC: DL.ED 09:07
DX: S22.41XA Multiple fractures of ribs, right side, initial encounter for closed fracture (principal); I10 Essential (primary) hypertension; J44.9 Chronic obstructive pulmonary disease, unspecified; E11.21 Type 2 diabetes mellitus with diabetic nephropathy; Z79.82 Long term (current) use of aspirin; Z79.84 Long term (current) use of oral hypoglycemic drugs; Z79.899 Other long term (current) drug therapy; Z88.0 Allergy status to penicillin; Z88.5 Allergy status to narcotic agent; Z88.1 Allergy status to other antibiotic agents; W18.09XA Striking against other object with subsequent fall, initial encounter
CPT/HCPCS: 71101-RT; 99283-25; A9270-GY

== ENCOUNTER 2020-11-03 12:32 | Emergency (ER) | payer MEDICARE ==
--- NOTE | 2020-11-03 12:58 | PCM.EKG ---
#1 Interpretation EKG Date: 11/03/20 Time: 12:50 Rhythm: NSR Rate (Beats/Min): 108 [place]: Normal P-Wave: Present QRS: RBBB ST-T: Normal QT: Normal Comparison: No Change
--- NOTE | 2020-11-03 12:58 | EDM.PDOC ---
ED HPI GENERAL MEDICAL PROBLEM - General Chief Complaint: Respiratory Problem Stated Complaint: DIFFICULTY BREATHING / COPD Time Seen by Provider: 11/03/20 12:57 Source of Information: Reports: Patient History Limitations: Reports: No Limitations - History of Present Illness INITIAL COMMENTS - FREE TEXT/NARRATIVE: Patient comes emergency department today from home with complaints of increasing shortness of breath chills weakness fatigue that has been going on for the past 2 to 3 days. The patient has a significant history of COPD as well as congestive heart failure diabetes mellitus. A week ago was at home and on her right side of her chest and she ended up with approximately 3 left rib fractures for which she was seen at that time. There was no intervention done at that time. She is noticed last 2 to 3 days that she has had increasing shortness of breath. She has tried her nebulizers at home without improvement. She denies any fever or chills. She denies any pain in her chest pressure. No more production of sputum no thicker sputum but she does complain of shortness of breath. She does complain of generalized weakness and fatigue and no palpitations or syncope. Although she does feel lightheaded upon standing. She has no abdominal pain nausea or vomiting. No hematuria dysuria or urinary frequency. No black or tarry diarrhea. No rash lesions or sores. She has received her Covid vaccine. Right Chest Pain Score (Numeric/FACES): 6 - Related Data Allergies Allergy/AdvReac Type Severity Reaction Status Date / Time erythromycin base Allergy Unknown Rash Verified 10/27/20 10:42 [Erythromycin Base] ampicillin AdvReac Unknown swelling Verified 10/27/20 10:42 of legs and feet codeine AdvReac Unknown dizzy and Verified 10/27/20 10:42 lightheaded Penicillins AdvReac Unknown swelling Verified 10/27/20 10:42 of legs and feet Home Meds: Home Meds Hydrochlorothiazide 50 mg PO DAILY 07/23/13 [History] Lisinopril 40 mg PO DAILY 07/23/13 [History] Tiotropium [Spiriva Handihaler] 18 mcg INH DAILY 07/23/13 [History] metFORMIN [Glucophage] 500 mg PO DAILY 07/23/13 [History] Aspirin [Halfprin] 81 mg PO BRK 05/11/15 [History] Sertraline [Zoloft] 50 mg PO DAILY 08/27/17 [History] Acetaminophen [Acetaminophen Extra Strength] 1,000 mg pe PO Q6HR PRN 10/13/18 [History] Budesonide [Pulmicort] 1 vial IH BID 10/13/18 [History] Formoterol Fumarate [Perforomist] 2 ml IH BID 10/13/18 [History] Albuterol Sulfate [Albuterol Sulfate Hfa] 1 puff IH DAILY PRN 10/14/18 [History] Carboxymethylcellulose Sodium [Lubricant Eye Drops] 1 drop EYEBOTH QID PRN 10/14/18 [History] Cholecalciferol (Vitamin D3) [Vitamin D3] 1,000 unit PO DAILY 10/14/18 [History] Ferrous Gluconate 324 mg PO DAILY 10/14/18 [History] Benzonatate 100 mg PO TID PRN 05/12/20 [History] Donepezil [Aricept] 5 mg PO BEDTIME 05/12/20 [History] Loratadine 10 mg PO DAILY 05/12/20 [History] Melatonin 3 mg PO BEDTIME 05/12/20 [History] Multivitamin with Minerals [Multivitamins with Minerals] 1 each PO DAILY 05/12/20 [History] Ondansetron [Ondansetron ODT] 4 mg PO Q8H PRN 05/12/20 [History] Spironolactone [Aldactone] 25 mg PO DAILY 05/12/20 [History] Vitamin E (Dl,Tocopheryl Acet) [Vitamin E] 450 mg PO DAILY 05/12/20 [History] Past Medical History - Past Health History Medical/Surgical History: Denies Medical/Surgical History HEENT History: Reports: None Cardiovascular History: Reports: Hypertension Respiratory History: Reports: Asthma, COPD, SOB Gastrointestinal History: Reports: Other (See Below) Other Gastrointestinal History: Appendicitis 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 [employer] History: Reports: Musculoskeletal History: Reports: Arthritis Neurological History: Reports: Head Trauma Psychiatric History: Reports: Anxiety, Depression, Panic Attack Endocrine/Metabolic History: Reports: Diabetes, Type II Hematologic History: Reports: Anemia, Blood Transfusion(s) Immunologic History: Reports: None Oncologic (Cancer) History: Reports: None Dermatologic History: Reports: None - Infectious Disease History Infectious Disease History: Reports: Measles, Shingles Other Infectious Disease History: 10/17/18 recent diagnosis of shingles - Past Surgical History HEENT Surgical History: Reports: Tonsillectomy Respiratory Surgical History: Reports: None GI Surgical History: Reports: Appendectomy, Cholecystectomy Other GI Surgeries/Procedures: Appendectomy Musculoskeletal Surgical History: Reports: Arthroscopic Knee Social & Family History - Family History Family Medical History: No Pertinent Family History - Caffeine Use Caffeine Use: Reports: None - Living Situation & Occupation Living situation: Reports: with Family Occupation: Retired ED ROS GENERAL - Review of Systems Review Of Systems: Comprehensive ROS is negative, except as noted in HPI. ED EXAM, GENERAL - Physical Exam Exam: See Below Free Text/Narrative:: Initial blood pressure is systolically in the mid 70s. Exam Limited By: No Limitations General Appearance: Alert, WD/WN, No Apparent Distress Eye Exam: Bilateral Eye: EOMI Ears: Normal External Exam Nose: Normal Inspection Throat/Mouth: Normal Inspection Head: Atraumatic, Normocephalic Neck: Normal Inspection, Supple Respiratory/Chest: No Respiratory Distress, No Accessory Muscle Use, Chest Non- Tender, Wheezing (Expiratory wheezing bilaterally. No Tory wheezing. No crackles rales or rhonchi. No increased work of breathing. She is able to speak in full sentences.) Cardiovascular: Normal Peripheral Pulses, Regular Rate, Rhythm, Tachycardia Peripheral Pulses: 1+: Radial (L), Radial (R), Popliteal (L), Popliteal (R) GI/Abdominal: Normal Bowel Sounds, Soft, Non-Tender, Pelvis Stable Back Exam: Normal Inspection, Full Range of Motion Extremities: Normal Inspection, Normal Capillary Refill. No: Pedal Edema Neurological: Alert, Oriented, CN II-XII Intact, No Motor/Sensory Deficits Psychiatric: Normal Affect, Normal Mood Skin Exam: Intact, No Rash, Cool, Diaphoretic, Pallor Lymphatic: No Adenopathy Course - Vital Signs Last Recorded V/S: Last Vital Signs Temp 97.7 F 11/03/20 12:57 Pulse 109 H 11/03/20 12:57 Resp 21 H 11/03/20 12:57 BP 67/39 L 11/03/20 12:57 Pulse Ox 97 11/03/20 12:57 - Orders/Labs/Meds Orders: Active Orders 24 hr Category Date Time Status CULTURE URINE [RM] Stat Lab 11/03/20 15:05 Results Labs: Laboratory Tests 11/03/20 11/03/2021 Range/Units 13:18 13:18 13:18 WBC 26.8 H* (5.0-10.0) 10^3/uL RBC 4.51 (4.2-5.4) 10^6/uL Hgb 12.1 (12.0-16.0) g/dL Hct 37.4 (37.0-47.0) % MCV 82.9 (80-100) fL MCH 26.8 L (27.0-34.0) pg MCHC 32.4 L (33.0-35.0) g/dL Plt Count 277 (150-450) 10^3/uL Neut % (Auto) 83.6 H (42.2-75.2) % Lymph % (Auto) 7.8 L (20.5-50.1) % Ida % (Auto) 8.5 H (2-8) % Eos % (Auto) 0.0 L (1.0-3.0) % Baso % (Auto) 0.1 (0.0-1.0) % Add Manual Diff Yes Neutrophils % (Manual) 59 (42-75) % Band Neutrophils % 17 % Lymphocytes % (Manual) 12 L (20-50) % Monocytes % (Manual) 8 (2-8) % Metamyelocytes % 2 Myelocytes % 2 VBG pH (7.31-7.41) VBG pCO2 (41-51) mmHg VBG pO2 (35-42) mmHg VBG HCO3 (19-25) mmol/l VBG O2 Saturation (60-80) % VBG Base Excess ((-2)-(+3)) mmol/l O2 Delivery Device Sodium 137 (136-145) mmol/L Potassium 4.6 (3.5-5.1) mmol/L Chloride 101 (98-107) mmol/L Carbon Dioxide 20 L (21-32) mmol/L Anion Gap 20.6 H (7-13) mEq/L BUN 29 H (7-18) mg/dL Creatinine 2.82 H D (0.55-1.02) mg/dL Est Cr Clr Drug Dosing TNP Estimated GFR (MDRD) 16 BUN/Creatinine Ratio 10.3 (No establ ref range) Glucose 152 H (70-99) mg/dL Lactic Acid 5.6 H* (0.4-2.0) mmol/L Calcium 8.5 (8.5-10.1) mg/dL Total Bilirubin 1.1 H (0.2-1.0) mg/dL AST 45 H (15-37) U/L ALT 28 (14-59) U/L Alkaline Phosphatase 86 (46-116) U/L Troponin I High Sens 1617 H* (<=51) pg/mL C-Reactive Protein 19.2 H (0.0-0.9) mg/dL B-Natriuretic Peptide 1140 H (0-100) pg/ml Total Protein 7.0 (6.4-8.2) g/dL Albumin 3.0 L (3.4-5.0) g/dL Globulin 4.0 Albumin/Globulin Ratio 0.75 Procalcitonin ng/mL Urine Color (YELLOW) Urine Appearance (CLEAR) Urine pH (5.0-9.0) Ur Specific [place] (1.005-1.030) Urine Protein (NEGATIVE) Urine Glucose (UA) (NEGATIVE) Urine Ketones (NEGATIVE) Urine Occult Blood (NEGATIVE) Urine Nitrite (NEGATIVE) Urine Bilirubin (NEGATIVE) Urine Urobilinogen (0.2-1.0) mg/dL Ur Leukocyte Esterase (NEGATIVE) U Hyaline Cast (Auto) Urine RBC /HPF Urine WBC (0-5/HPF) /HPF Ur Epithelial Cells (NOT SEEN) /HPF Amorphous Sediment (NOT SEEN) /HPF Urine Bacteria (0-FEW/HPF) /HPF Granular Casts (Auto) Fine Granular Casts (NOT SEEN) /LPF Urine Mucus (NOT SEEN) /LPF SARS-CoV-2 RNA (KHOA) (NEGATIVE) 11/03/20 11/03/20 11/03/20 Range/Units 13:18 14:37 14:55 WBC (5.0-10.0) 10^3/uL RBC (4.2-5.4) 10^6/uL Hgb (12.0-16.0) g/dL Hct (37.0-47.0) % MCV (80-100) fL MCH (27.0-34.0) pg MCHC (33.0-35.0) g/dL Plt Count (150-450) 10^3/uL Neut % (Auto) (42.2-75.2) % Lymph % (Auto) (20.5-50.1) % Ida % (Auto) (2-8) % Eos % (Auto) (1.0-3.0) % Baso % (Auto) (0.0-1.0) % Add Manual Diff Neutrophils % (Manual) (42-75) % Band Neutrophils % % Lymphocytes % (Manual) (20-50) % Monocytes % (Manual) (2-8) % Metamyelocytes % Myelocytes % VBG pH 7.23 L* (7.31-7.41) VBG pCO2 48 (41-51) mmHg VBG pO2 30 L (35-42) mmHg VBG HCO3 19 (19-25) mmol/l VBG O2 Saturation 38.7 L (60-80) % VBG Base Excess -7.5 L ((-2)-(+3)) mmol/l O2 Delivery Device Nasal cannula Sodium (136-145) mmol/L Potassium (3.5-5.1) mmol/L Chloride (98-107) mmol/L Carbon Dioxide (21-32) mmol/L Anion Gap (7-13) mEq/L BUN (7-18) mg/dL Creatinine (0.55-1.02) mg/dL Est Cr Clr Drug Dosing Estimated GFR (MDRD) BUN/Creatinine Ratio (No establ ref range) Glucose (70-99) mg/dL Lactic Acid (0.4-2.0) mmol/L Calcium (8.5-10.1) mg/dL Total Bilirubin (0.2-1.0) mg/dL AST (15-37) U/L ALT (14-59) U/L Alkaline Phosphatase (46-116) U/L Troponin I High Sens (<=51) pg/mL C-Reactive Protein (0.0-0.9) mg/dL B-Natriuretic Peptide (0-100) pg/ml Total Protein (6.4-8.2) g/dL Albumin (3.4-5.0) g/dL Globulin Albumin/Globulin Ratio Procalcitonin 14.00 H ng/mL Urine Color (YELLOW) Urine Appearance (CLEAR) Urine pH (5.0-9.0) Ur Specific [place] (1.005-1.030) Urine Protein (NEGATIVE) Urine Glucose (UA) (NEGATIVE) Urine Ketones (NEGATIVE) Urine Occult Blood (NEGATIVE) Urine Nitrite (NEGATIVE) Urine Bilirubin (NEGATIVE) Urine Urobilinogen (0.2-1.0) mg/dL Ur Leukocyte Esterase (NEGATIVE) U Hyaline Cast (Auto) Urine RBC /HPF Urine WBC (0-5/HPF) /HPF Ur Epithelial Cells (NOT SEEN) /HPF Amorphous Sediment (NOT SEEN) /HPF Urine Bacteria (0-FEW/HPF) /HPF Granular Casts (Auto) Fine Granular Casts (NOT SEEN) /LPF Urine Mucus (NOT SEEN) /LPF SARS-CoV-2 RNA (KHOA) Negative (NEGATIVE) 11/03/20 Range/Units 15:05 WBC (5.0-10.0) 10^3/uL RBC (4.2-5.4) 10^6/uL Hgb (12.0-16.0) g/dL Hct (37.0-47.0) % MCV (80-100) fL MCH (27.0-34.0) pg MCHC (33.0-35.0) g/dL Plt Count (150-450) 10^3/uL Neut % (Auto) (42.2-75.2) % Lymph % (Auto) (20.5-50.1) % Ida % (Auto) (2-8) % Eos % (Auto) (1.0-3.0) % Baso % (Auto) (0.0-1.0) % Add Manual Diff Neutrophils % (Manual) (42-75) % Band Neutrophils % % Lymphocytes % (Manual) (20-50) % Monocytes % (Manual) (2-8) % Metamyelocytes % Myelocytes % VBG pH (7.31-7.41) VBG pCO2 (41-51) mmHg VBG pO2 (35-42) mmHg VBG HCO3 (19-25) mmol/l VBG O2 Saturation (60-80) % VBG Base Excess ((-2)-(+3)) mmol/l O2 Delivery Device Sodium (136-145) mmol/L Potassium (3.5-5.1) mmol/L Chloride (98-107) mmol/L Carbon Dioxide (21-32) mmol/L Anion Gap (7-13) mEq/L BUN (7-18) mg/dL Creatinine (0.55-1.02) mg/dL Est Cr Clr Drug Dosing Estimated GFR (MDRD) BUN/Creatinine Ratio (No establ ref range) Glucose (70-99) mg/dL Lactic Acid (0.4-2.0) mmol/L Calcium (8.5-10.1) mg/dL Total Bilirubin (0.2-1.0) mg/dL AST (15-37) U/L ALT (14-59) U/L Alkaline Phosphatase (46-116) U/L Troponin I High Sens (<=51) pg/mL C-Reactive Protein (0.0-0.9) mg/dL B-Natriuretic Peptide (0-100) pg/ml Total Protein (6.4-8.2) g/dL Albumin (3.4-5.0) g/dL Globulin Albumin/Globulin Ratio Procalcitonin ng/mL Urine Color Dark yellow (YELLOW) Urine Appearance Cloudy (CLEAR) Urine pH 5.5 (5.0-9.0) Ur Specific [place] >= 1.030 (1.005-1.030) Urine Protein 30 H (NEGATIVE) Urine Glucose (UA) Negative (NEGATIVE) Urine Ketones Negative (NEGATIVE) Urine Occult Blood Negative (NEGATIVE) Urine Nitrite Negative (NEGATIVE) Urine Bilirubin Small H (NEGATIVE) Urine Urobilinogen 0.2 (0.2-1.0) mg/dL Ur Leukocyte Esterase Trace H (NEGATIVE) U Hyaline Cast (Auto) Occasional Urine RBC 0-5 /HPF Urine WBC 50-75 H (0-5/HPF) /HPF Ur Epithelial Cells Few (NOT SEEN) /HPF Amorphous Sediment Few (NOT SEEN) /HPF Urine Bacteria Few (0-FEW/HPF) /HPF Granular Casts (Auto) Few Fine Granular Casts Moderate H (NOT SEEN) /LPF Urine Mucus Rare (NOT SEEN) /LPF SARS-CoV-2 RNA (KHOA) (NEGATIVE) Meds: Medications Discontinued Medications Generic Name Dose Route Start Last Admin Trade Name Freq PRN Reason Stop Dose Admin Lactated Ringer's 1,000 mls @ 1,000 mls/hr 11/03/20 13:10 11/03/20 13:59 Ringers, Lactated IV 11/03/20 14:09 Infused .BOLUS ONE Infusion Ceftriaxone Sodium 2 gm/ 100 mls @ 200 mls/hr 11/03/20 13:36 11/03/20 13:53 Sodium Chloride IV 11/03/20 14:05 200 mls/hr ONETIME ONE Administration Lactated Ringer's 1,000 mls @ 1,000 mls/hr 11/03/20 13:37 11/03/20 14:00 Ringers, Lactated IV 11/03/20 14:36 1,000 mls/hr .BOLUS ONE Administration Azithromycin 500 mg/ Sodium 250 mls @ 250 mls/hr 11/03/20 14:06 11/03/20 14:44 Chloride IV 11/03/20 15:05 250 mls/hr ONETIME ONE Administration Norepinephrine Bitartrate 4 mg 250 mls @ 14.458 mls/hr 11/03/20 14:45 11/03/20 15:11 / Dextrose/Water IV 0.08 mcg/kg/min TITRATE VLAD 23.133 mls/hr Titration Protocol 0.05 MCG/KG/MIN Lactated Ringer's 1,000 mls @ 125 mls/hr 11/03/20 15:00 11/03/20 14:54 Ringers, Lactated IV 125 mls/hr ASDIRECTED VLAD Administration Lactated Ringer's 1,000 mls @ 250 mls/hr 11/03/20 15:15 11/03/20 15:14 Ringers, Lactated IV 250 mls/hr ASDIRECTED VLAD Administration Sodium Chloride 10 ml 11/03/20 13:08 Sodium Chloride 0.9% 10 Ml Syringe FLUSH ASDIRECTED PRN Keep Vein Open - Re-Assessments/Exams Free Text/Narrative Re-Assessment/Exam: IV was established labs are drawn. EKG reviewed. IV LR 1 L wide open. Blood cultures drawn. CBC returns with a WBC of approximately 27 and I have concerns for sepsis with septic shock. Neck and liter of LR wide open to get to 30 mils per kilogram in the presence of sepsis. Rocephin 2 g IV piggyback for bacteremia initiated as well as 500 mg of azithromycin for concerns of possibly a pneumonia with a recent rib fractures or history of COPD and her complaints of SOB. Venous blood gases with a pH of 7.2 348 this is a venous PO2 30 this is a venous bicarb 19 with a base excess of -7.5 which clearly shows that this is a metabolic acidosis. CMP with a significant anion gap of 21. A BUN of 29 a creatinine of 2.2 which is up from her baseline of 0.9. Her glucose is 152. Lactic acid of 5.6 Troponin 1617 which is most likely from strain of the septic shock not ACS. Pro BNp 1140 although she is in septic shock and we will follow the 30ml/kg treatment guideline. Even after her second liter of fluid she was still with a mean arterial pressure below 65. She has had no urinary output yet. We initiated Levophed at 0.05 mics per kilogram per minute for goal pressure of mean arterial pressure of greater than 65. A Patricia catheter was placed she had about 100 mils of very concentrated dark mitch urine. Sent for analysis. Chest x-ray does not show any infiltrates consolidation effusions or acute pathology. I called and spoke with Dr. Stevens at [facility] in [place]. HPI ER course findings and concerns for unknown site of infection. The patient is presenting with septic shock. She has received over the 30 mils per kilo fluid bolus and I have initiated her on her Levophed. I have not received her urine analysis results she could be septic or she could have a pneumonia that has not developed yet for chest xray. He accepted the patient in transfer at this time with no new orders. The patient responded well to the levophed and went up to 0.10 mcg/kg/min to sustain a MAP of >65. Her urine is clearly infectious so this is urosepsis with septic shock. Results also sent to [facility]. WE will continue hydration with fluids at 250mls/hr of LR enroute to [facility] by ground ALS ambulance. I discussed my findings and concerns with the patient as well as her family for urosepsis in the presence is of septic shock as well. She is alert appropriate. She is starting to put out more urine which is a good sign. Her acute kidney injury most likely due to septic shock as well as her elevated troponin and she is not having any chest pain at this time. She and her family are comfortable with this plan and their questions answered. As of note the procalcitonin had returned later and was noted to be quite elevated at 14 consistent with the diagnosis of septic shock. Departure - Departure Time of Disposition: 14:30 Disposition: DC/Tfer to [facility] 02 Clinical Impression: Septic shock, MARIOLA (acute kidney injury), Elevated troponin, SOB (shortness of breath) UTI (urinary tract infection) Qualifiers: Urinary tract infection type: acute cystitis Hematuria presence: without hematuria Qualified Code(s): N30.00 - Acute cystitis without hematuria - Discharge Information Referrals: PCP,None [Primary Care Provider] - Forms: ED Department Discharge - My Orders Last 24 Hours: My Active Orders 11/03/20 15:05 CULTURE URINE [RM] Stat - Assessment/Plan Last 24 Hours: My Active Orders 11/03/20 15:05 CULTURE URINE [RM] Stat
[2020-11-03 13:07] VITALS: BP 67/39; PULSE 109
[2020-11-03] MEDS ORDERED: Sodium Chloride 0.9% 10 ML Syringe FLUSH PRN (13:08)
[2020-11-03] MEDS: Lactated Ringers 1,000 ML IV ONE ×2 (13:27→13:59)
[2020-11-03] MEDS ORDERED: cefTRIAXone 2 GM in Sodium Chloride 0.9% 100 ML IV ONE (13:36)
[2020-11-03] MEDS ORDERED: Lactated Ringers 1,000 ML IV ONE (13:37)
--- NOTE | 2020-11-03 13:42 | CR ---
EXAMINATION: Chest 1V Frontal SEX: Female AGE: 80 years CLINICAL HISTORY: 80-year-old female complaining of shortness of breath (recent rib fractures). Fall September. Comparison CXR 27 October 2020. INTERPRETATION: 1. Nondisplaced posterior lateral upper mid right rib fractures. 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 2. Positional artifact (patient rotation). No new signs of lung contusion, atelectasis/collapse, pleural effusion or pneumothorax. 3. *New blunting of the contralateral left costophrenic sulcus suggesting small pleural effusion since 27 October 2020 CXR. 4. Normal cardiac size/configuration. No new pulmonary vascular congestion, cephalization of flow or alveolar edema. 5. No subcutaneous emphysema, pneumothorax, pneumomediastinum or free subdiaphragmatic air.
[2020-11-03 13:53] LABS: ANION GAP 20.6 mEq/L (7-13); CHLORIDE,CL 101 mmol/L (98-107); SODIUM,NA 137 mmol/L (136-145)
[2020-11-03] MEDS ORDERED: Azithromycin 500 MG in Sodium Chloride 0.9% 250 ML IV ONE (14:06)
[2020-11-03] MEDS ORDERED: Norepinephrine 4 MG in Dextrose 5% in Water 246 ML IV SCH ×2 (14:45)
[2020-11-03 14:46] LABS: BASE EXCESS VENOUS -7.5 mmol/l ((-2)-(+3)); BICARBONATE,VENOUS 19 mmol/l (19-25); O2 DELIVERY DEVICE NASAL CANNULA; O2 SATURATION VENOUS 38.7 % (60-80); PCO2 VENOUS 48 mmHg (41-51); PO2 VENOUS 30 mmHg (35-42)
[2020-11-03 14:47] LABS: PH,VENOUS 7.23 (7.31-7.41)
[2020-11-03] MEDS ORDERED: Lactated Ringers 1,000 ML IV SCH ×2 (15:00→15:15)
== END 2020-11-03 16:15 ==
LOC: DL.ED 12:32
DX: A41.9 Sepsis, unspecified organism (principal); R65.21 Severe sepsis with septic shock; N30.00 Acute cystitis without hematuria; N17.9 Acute kidney failure, unspecified; R79.89 Other specified abnormal findings of blood chemistry; I10 Essential (primary) hypertension; E11.40 Type 2 diabetes mellitus with diabetic neuropathy, unspecified; J44.9 Chronic obstructive pulmonary disease, unspecified; Z88.0 Allergy status to penicillin; Z88.5 Allergy status to narcotic agent; Z20.822 Contact with and (suspected) exposure to COVID-19; Z88.1 Allergy status to other antibiotic agents; Z79.82 Long term (current) use of aspirin; Z79.84 Long term (current) use of oral hypoglycemic drugs
CPT/HCPCS: 36415; 71045; 80053; 81001; 82803; 83605; 83880; 84145; 84484; 85025; 86140; 87040; 87086; 93005; 96365; 96367; 96368; 99285; J0456; J0696; J7050; J7060; J7120; U0002; 99284

== ENCOUNTER 2021-05-20 10:52 | Emergency (ER) | payer MEDICARE ==
[2021-05-20 12:15] VITALS: BP 122/74; PULSE 88
[2021-05-20 13:07] LABS: RESPIRATORY SYNCYTIAL VIR NAA NEGATIVE (NEGATIVE)
[2021-05-20 13:38] LABS: CORONAVIRUS COVID-19 NAA POSITIVE (NEGATIVE)
[2021-05-20] MEDS ORDERED: Albuterol 6.7 GM Inhaler INH ONE (13:56)
[2021-05-20] MEDS ORDERED: Dexamethasone 4 MG/ML SDV IM ONE (13:56)
[2021-05-20 14:52] LABS: ANION GAP 13.5 mEq/L (7-13)
== END 2021-05-20 15:25 | disposition home or self-care (01) ==
LOC: DL.ED 10:52
DX: U07.1 COVID-19 (principal); I10 Essential (primary) hypertension; J44.9 Chronic obstructive pulmonary disease, unspecified; E11.21 Type 2 diabetes mellitus with diabetic nephropathy; M19.90 Unspecified osteoarthritis, unspecified site; D64.9 Anemia, unspecified; Z88.0 Allergy status to penicillin; Z88.1 Allergy status to other antibiotic agents; Z88.5 Allergy status to narcotic agent; Z79.82 Long term (current) use of aspirin; Z79.899 Other long term (current) drug therapy
CPT/HCPCS: 0241U; 36415; 71045; 80053; 85025; 86140; 96372; 99284; A9270; J1100

== ENCOUNTER 2021-06-10 20:20 | Emergency (ER) | payer MEDICARE ==
[2021-06-10] MEDS ORDERED: Sodium Chloride 0.9% 10 ML Syringe FLUSH PRN (23:00)
[2021-06-10 23:08] VITALS: BP 191/95; PULSE 85
[2021-06-10 23:38] LABS: ANION GAP 11.1 mEq/L (7-13)
[2021-06-11 00:13] LABS: AMPHETAMINES,URINE NEGATIVE (NEGATIVE); BARBITURATES,URINE NEGATIVE (NEGATIVE); BENZODIAZEPINE,URINE NEGATIVE (NEGATIVE); MDMA (ECSTASY), URINE NEGATIVE (NEGATIVE); METHADONE,URINE NEGATIVE (NEGATIVE); METHAMPHETAMINES,URINE POSITIVE (NEGATIVE); OPIATES,URINE POSITIVE (NEGATIVE); OXYCODONE,URINE NEGATIVE (NEGATIVE); PHENCYCLIDINE,URINE NEGATIVE (NEGATIVE); TCA,URINE NEGATIVE (NEGATIVE)
== END 2021-06-11 00:56 | disposition home or self-care (01) ==
LOC: DL.ED 20:20
DX: R07.89 Other chest pain (principal); N39.0 Urinary tract infection, site not specified; I10 Essential (primary) hypertension; J44.9 Chronic obstructive pulmonary disease, unspecified; E11.40 Type 2 diabetes mellitus with diabetic neuropathy, unspecified; Z88.0 Allergy status to penicillin; Z88.5 Allergy status to narcotic agent; Z88.1 Allergy status to other antibiotic agents; Z86.16 Personal history of COVID-19; Z79.82 Long term (current) use of aspirin; Z79.84 Long term (current) use of oral hypoglycemic drugs; Z79.899 Other long term (current) drug therapy
CPT/HCPCS: 36415; 71045; 80053; 80305-QW; 81001; 84484; 85025; 86140; 87086; 93005; 99285-25

== ENCOUNTER 2021-06-24 16:26 | Emergency (ER) | payer MEDICARE ==
[2021-06-24] MEDS ORDERED: Nitrofurantoin Monohydrate/Macrocrystalline 100 MG Cap PO ONE (16:27)
[2021-06-24 16:38] VITALS: BP 140/66; PULSE 86
[2021-06-24] MEDS ORDERED: Acetaminophen 325 MG Tab PO ONE (17:34)
[2021-06-24 18:15] LABS: ANION GAP 14.9 mEq/L (7-13); CHLORIDE,CL 104 mmol/L (98-107); SODIUM,NA 141 mmol/L (136-145)
[2021-06-24] MEDS ORDERED: Nitrofurantoin Monohydrate/Macrocrystalline 100 MG Cap ONE (18:39)
== END 2021-06-24 18:40 | disposition home or self-care (01) ==
LOC: DL.ED 16:26
DX: N39.0 Urinary tract infection, site not specified (principal); E11.21 Type 2 diabetes mellitus with diabetic nephropathy; I10 Essential (primary) hypertension; J44.9 Chronic obstructive pulmonary disease, unspecified; Z88.5 Allergy status to narcotic agent; Z88.0 Allergy status to penicillin; Z88.1 Allergy status to other antibiotic agents; Z79.899 Other long term (current) drug therapy; Z79.82 Long term (current) use of aspirin; Z79.84 Long term (current) use of oral hypoglycemic drugs
CPT/HCPCS: 36415; 80053; 81001; 83605; 85025; 87040; 87086; 99283; A9270

== ENCOUNTER 2021-07-28 12:13 | Emergency (ER) | payer MEDICARE ==
[2021-07-28 12:33] VITALS: BP 120/84; PULSE 82
[2021-07-28 13:10] LABS: ANION GAP 11.7 mEq/L (7-13)
== END 2021-07-28 14:15 | disposition home or self-care (01) ==
LOC: DL.ED 12:13
DX: R04.0 Epistaxis (principal); J44.9 Chronic obstructive pulmonary disease, unspecified; I10 Essential (primary) hypertension; E11.21 Type 2 diabetes mellitus with diabetic nephropathy; Z88.1 Allergy status to other antibiotic agents; Z88.0 Allergy status to penicillin; Z88.5 Allergy status to narcotic agent; Z79.899 Other long term (current) drug therapy; Z79.82 Long term (current) use of aspirin
CPT/HCPCS: 36415; 71045; 80053; 81001; 83605; 83735; 83880; 84484; 85025; 86140; 87086; 93005; 93010; 99284; 99284-25

== ENCOUNTER 2021-09-08 08:24 | Emergency (ER) | payer MEDICARE ==
[2021-09-08] MEDS ORDERED: Oxymetazoline 0.05% Nasal Spray 30 ML Bottle NAS ONE (08:30)
[2021-09-08] MEDS ORDERED: Lidocaine 1% with EPINEPHrine 1:100,000 20 ML MDV INJECT ONE (08:30)
[2021-09-08 08:49] VITALS: BP 136/75; PULSE 90
== END 2021-09-08 09:24 | disposition home or self-care (01) ==
LOC: DL.ED 08:24
DX: R04.0 Epistaxis (principal); E78.00 Pure hypercholesterolemia, unspecified; I10 Essential (primary) hypertension; J44.9 Chronic obstructive pulmonary disease, unspecified; E11.9 Type 2 diabetes mellitus without complications; Z88.1 Allergy status to other antibiotic agents; Z88.0 Allergy status to penicillin; Z88.5 Allergy status to narcotic agent; Z79.02 Long term (current) use of antithrombotics/antiplatelets
CPT/HCPCS: 99282; 99283; A9270-GY

== ENCOUNTER 2021-09-08 20:12 | Emergency (ER) | payer MEDICARE, OTHER ==
[2021-09-08] MEDS ORDERED: Tranexamic Acid 1,000 MG in Sodium Chloride 0.9% 500 ML IV ONE (20:48)
[2021-09-08] MEDS ORDERED: Acetaminophen/HYDROcodone 325-5 MG Tab PO ONE (21:14)
[2021-09-08 21:30] VITALS: BP 176/88; PULSE 89
== END 2021-09-08 22:37 | disposition home or self-care (01) ==
LOC: DL.ED 20:12
DX: R04.0 Epistaxis (principal); I10 Essential (primary) hypertension; E78.00 Pure hypercholesterolemia, unspecified; E11.21 Type 2 diabetes mellitus with diabetic nephropathy; E66.9 Obesity, unspecified; Z88.0 Allergy status to penicillin; Z88.5 Allergy status to narcotic agent; Z79.82 Long term (current) use of aspirin; Z79.899 Other long term (current) drug therapy; Z79.02 Long term (current) use of antithrombotics/antiplatelets; Z68.32 Body mass index [BMI] 32.0-32.9, adult
CPT/HCPCS: 30903; 99283-25; 99284; A9270-GY

== ENCOUNTER 2021-09-28 10:22 | Emergency (ER) | payer MEDICARE, OTHER ==
[2021-09-28 10:53] VITALS: BP 126/62; PULSE 82
[2021-09-28 11:39] LABS: ANION GAP 9.6 mEq/L (7-13)
[2021-09-28 11:55] LABS: CORONAVIRUS COVID-19 NAA NEGATIVE (NEGATIVE); RESPIRATORY SYNCYTIAL VIR NAA NEGATIVE (NEGATIVE)
[2021-09-28] MEDS ORDERED: Sodium Chloride 0.9% 500 ML IV ONE (12:30)
== END 2021-09-28 15:00 | disposition home or self-care (01) ==
LOC: DL.ED 10:22
DX: R07.89 Other chest pain (principal); E86.0 Dehydration; J44.9 Chronic obstructive pulmonary disease, unspecified; E78.00 Pure hypercholesterolemia, unspecified; E11.40 Type 2 diabetes mellitus with diabetic neuropathy, unspecified; E66.9 Obesity, unspecified; Z68.33 Body mass index [BMI] 33.0-33.9, adult; Z88.1 Allergy status to other antibiotic agents; Z88.0 Allergy status to penicillin; Z79.82 Long term (current) use of aspirin; Z79.899 Other long term (current) drug therapy; Z20.822 Contact with and (suspected) exposure to COVID-19
CPT/HCPCS: 0241U; 36415; 71045; 80053; 81003; 82150; 83605; 83690; 83880; 84484; 85025; 86140; 93005; 93010; 96360; 99284; 99285-25; J7030

== ENCOUNTER 2021-11-05 16:36 | Inpatient (IN) | payer MEDICARE, OTHER ==
[2021-11-05] MEDS ORDERED: methylPREDNISolone Sodium Succinate 125 MG/2 ML SDV IVPUSH ONE (16:43)
[2021-11-05] MEDS ORDERED: Albuterol/Ipratropium 3.0-0.5 MG/3 ML Neb Soln NEB ONE ×2 (16:43→17:47)
[2021-11-05] MEDS: Sodium Chloride 0.9% 10 ML Syringe FLUSH PRN ×2 (16:54→21:41)
[2021-11-05 17:13] LABS: O2 DELIVERY DEVICE NASAL CANNULA
[2021-11-05 17:22] LABS: O2 SATURATION ARTERIAL 87 % (95-100); PCO2 ARTERIAL 38 mmHg (35-45); PO2 ARTERIAL 54 mmHg (70-100)
[2021-11-05 17:23] LABS: BASE EXCESS ARTERIAL -4 mmol/L ((-2)-(+3)); BICARBONATE,ARTERIAL 21.3 mmol/L (22-26)
[2021-11-05 17:28] LABS: ANION GAP 13.5 mEq/L (7-13); CHLORIDE,CL 102 mmol/L (98-107); SODIUM,NA 136 mmol/L (136-145)
[2021-11-05 17:29] LABS: ESTIMATED GFR 45 mL/min (>=60)
[2021-11-05] MEDS ORDERED: Gentamicin 0.3% Ophth Soln 5 ML Bottle EYEBOTH ONE (17:34)
[2021-11-05] MEDS ORDERED: Insulin Regular, Human 100 Units/ML 3 ML Vial SUBCUT ONE (17:40)
[2021-11-05] MEDS ORDERED: Magnesium Sulfate/Water 2 GM in Premix Bag 1 BAG IV ONE ×2 (17:42→17:43)
[2021-11-05] MEDS ORDERED: Sodium Chloride 0.9% 500 ML IV SCH (17:45)
[2021-11-05] MEDS ORDERED: Albuterol 0.083% 2.5 MG/3 ML Neb Soln NEB ONE (17:47)
[2021-11-05 18:14] LABS: CORONAVIRUS COVID-19 NAA NEGATIVE (NEGATIVE); RESPIRATORY SYNCYTIAL VIR NAA NEGATIVE (NEGATIVE)
[2021-11-05] MEDS ORDERED: Ondansetron 4 MG/2 ML SDV IVPUSH PRN (18:47)
[2021-11-05] MEDS ORDERED: Docusate Sodium 100 MG Cap PO PRN (18:47)
[2021-11-05] MEDS ORDERED: Ondansetron 4 MG Tab.DIS PO PRN (18:47)
[2021-11-05] MEDS ORDERED: Acetaminophen 325 MG Tab PO PRN (18:47)
[2021-11-05] MEDS ORDERED: 50% Dextrose in Water 50 ML Syringe IVPUSH PRN (18:53)
[2021-11-05] MEDS ORDERED: Glucagon,Human Recombinant 1 MG Vial IM PRN (18:53)
[2021-11-05] MEDS ORDERED: Albuterol/Ipratropium 3.0-0.5 MG/3 ML Neb Soln NEB SCH (19:00)
[2021-11-05] MEDS: methylPREDNISolone Sodium Succinate 40 MG/1 ML SDV IVPUSH SCH (20:38)
[2021-11-05] MEDS: Doxycycline 100 MG in Sodium Chloride 0.9% 100 ML IV SCH (20:43)
[2021-11-05] MEDS: Insulin Lispro 100 Units/ML 3 ML Vial SUBCUT SCH (20:44)
[2021-11-05] MEDS ORDERED: Melatonin 3 MG Tab PO SCH (21:00)
[2021-11-05] MEDS: Albuterol/Ipratropium 3.0-0.5 MG/3 ML Neb Soln NEB SCH (21:42)
[2021-11-05] MEDS: Heparin Sodium 5,000 Units/ML Vial SUBCUT SCH (21:46)
[2021-11-06] MEDS: Albuterol/Ipratropium 3.0-0.5 MG/3 ML Neb Soln NEB SCH ×4 (02:32→14:31)
[2021-11-06] MEDS: methylPREDNISolone Sodium Succinate 40 MG/1 ML SDV IVPUSH SCH ×3 (02:34→14:14)
[2021-11-06] MEDS: Heparin Sodium 5,000 Units/ML Vial SUBCUT SCH ×2 (05:16→14:14)
[2021-11-06 06:50] LABS: ANION GAP 15.1 mEq/L (7-13)
[2021-11-06 06:53] LABS: HEMOGLOBIN A1C 8.4 % (<5.7)
[2021-11-06] MEDS ORDERED: Spironolactone 25 MG Tab PO SCH (09:00)
[2021-11-06] MEDS ORDERED: Sertraline 50 MG Tab PO SCH (09:00)
[2021-11-06] MEDS ORDERED: Lisinopril 10 MG Tab PO SCH (09:00)
[2021-11-06] MEDS ORDERED: Aspirin 81 MG Tab.Chew PO SCH (09:00)
[2021-11-06] MEDS ORDERED: Furosemide 20 MG Tab PO SCH (09:00)
[2021-11-06] MEDS ORDERED: Clopidogrel 75 MG Tab PO SCH (09:00)
[2021-11-06] MEDS ORDERED: Loratadine 10 MG Tab PO SCH (09:00)
[2021-11-06] MEDS: Insulin Lispro 100 Units/ML 3 ML Vial SUBCUT SCH ×2 (09:23→12:46)
[2021-11-06] MEDS: Doxycycline 100 MG in Sodium Chloride 0.9% 100 ML IV SCH (09:24)
[2021-11-06 12:12] VITALS: BP 128/58; PULSE 89
== END 2021-11-06 16:04 | disposition home or self-care (01) | DRG 189 ==
LOC: DL.ED 16:36 → DL.MS 17:58
PROVIDERS: ADMIT Hospitalist; ATTEND Hospitalist
DX: J96.21 Acute and chronic respiratory failure with hypoxia (principal); J44.1 Chronic obstructive pulmonary disease with (acute) exacerbation; E11.65 Type 2 diabetes mellitus with hyperglycemia; H10.33 Unspecified acute conjunctivitis, bilateral; I50.9 Heart failure, unspecified; I25.10 Atherosclerotic heart disease of native coronary artery without angina pectoris; Z20.822 Contact with and (suspected) exposure to COVID-19; E11.40 Type 2 diabetes mellitus with diabetic neuropathy, unspecified; H54.7 Unspecified visual loss; E78.00 Pure hypercholesterolemia, unspecified; I10 Essential (primary) hypertension; E11.21 Type 2 diabetes mellitus with diabetic nephropathy; M19.90 Unspecified osteoarthritis, unspecified site; F41.9 Anxiety disorder, unspecified; F32.A Depression, unspecified; E66.9 Obesity, unspecified; D64.9 Anemia, unspecified; Z86.16 Personal history of COVID-19; Z79.82 Long term (current) use of aspirin; Z79.02 Long term (current) use of antithrombotics/antiplatelets; Z79.899 Other long term (current) drug therapy; Z79.84 Long term (current) use of oral hypoglycemic drugs; Z88.1 Allergy status to other antibiotic agents; Z88.5 Allergy status to narcotic agent; Z88.0 Allergy status to penicillin; Z95.5 Presence of coronary angioplasty implant and graft; Z87.440 Personal history of urinary (tract) infections; Z86.19 Personal history of other infectious and parasitic diseases; Z90.89 Acquired absence of other organs; Z98.49 Cataract extraction status, unspecified eye; Z90.49 Acquired absence of other specified parts of digestive tract; Z68.32 Body mass index [BMI] 32.0-32.9, adult
CPT/HCPCS: 0241U; 36415; 36600; 71045; 80048; 80053; 82009; 82803; 82947; 83036; 83605; 83735; 83880; 84145; 84484; 85025; 86140; 87040; 87070; 87205; 93005; 94010; 94640; 97165; 87077; 93010; 96365; 96366; 96375; 99285; 99285-25; A9270-GY; J1644; J1815-GY; J2920; J2930; J3475; J3490; J7040; J7613-GY; J7620-GY

== ENCOUNTER 2022-02-13 19:51 | Emergency (ER) | payer MEDICARE, OTHER ==
[2022-02-13 19:58] VITALS: BP 133/70; PULSE 99
[2022-02-13 20:34] LABS: ANION GAP 13.1 mEq/L (7-13)
[2022-02-13] MEDS ORDERED: Doxycycline Monohydrate 100 MG Cap PO ONE (20:55)
[2022-02-13] MEDS ORDERED: methylPREDNISolone Sodium Succinate 125 MG/2 ML SDV IVPUSH ONE (20:55)
== END 2022-02-13 21:27 | disposition home or self-care (01) ==
LOC: DL.ED 19:51
DX: J44.1 Chronic obstructive pulmonary disease with (acute) exacerbation (principal); I11.0 Hypertensive heart disease with heart failure; I50.9 Heart failure, unspecified; J45.909 Unspecified asthma, uncomplicated; E11.21 Type 2 diabetes mellitus with diabetic nephropathy; E66.9 Obesity, unspecified; Z68.32 Body mass index [BMI] 32.0-32.9, adult; Z88.1 Allergy status to other antibiotic agents; Z88.0 Allergy status to penicillin; Z88.5 Allergy status to narcotic agent; Z79.899 Other long term (current) drug therapy; Z79.82 Long term (current) use of aspirin; Z90.49 Acquired absence of other specified parts of digestive tract
CPT/HCPCS: 36415; 71045; 80053; 83880; 84484; 85025; 93010; 96374; 99284; 99285; A9270; J2930

== ENCOUNTER 2022-04-14 12:27 | Emergency (ER) | payer MEDICARE, OTHER ==
[2022-04-14 12:37] VITALS: BP 114/57; PULSE 104
[2022-04-14] MEDS ORDERED: cefTRIAXone 2 GM Vial IVPUSH ONE (14:27)
[2022-04-14 14:33] LABS: CORONAVIRUS COVID-19 NAA NEGATIVE (NEGATIVE); RESPIRATORY SYNCYTIAL VIR NAA POSITIVE (NEGATIVE)
[2022-04-14] MEDS ORDERED: methylPREDNISolone Sodium Succinate 125 MG/2 ML SDV IVPUSH ONE (14:33)
[2022-04-14] MEDS ORDERED: Azithromycin 250 MG Tab ONE (15:45)
== END 2022-04-14 16:07 | disposition home or self-care (01) ==
LOC: DL.ED 12:27
DX: J44.1 Chronic obstructive pulmonary disease with (acute) exacerbation (principal); I11.0 Hypertensive heart disease with heart failure; I50.9 Heart failure, unspecified; B97.4 Respiratory syncytial virus as the cause of diseases classified elsewhere; E11.21 Type 2 diabetes mellitus with diabetic nephropathy; E78.00 Pure hypercholesterolemia, unspecified; E66.9 Obesity, unspecified; Z68.28 Body mass index [BMI] 28.0-28.9, adult; Z88.1 Allergy status to other antibiotic agents; Z88.5 Allergy status to narcotic agent; Z88.0 Allergy status to penicillin; Z79.899 Other long term (current) drug therapy; Z79.82 Long term (current) use of aspirin; Z90.49 Acquired absence of other specified parts of digestive tract; Z20.822 Contact with and (suspected) exposure to COVID-19
CPT/HCPCS: 0241U; 36415; 71045; 80053; 81003; 83605; 84484; 85025; 87040; 93005; 96374; 96375; 99285; J0696; J2930

== ENCOUNTER 2022-04-15 22:59 | Emergency (ER) | payer MEDICARE, OTHER ==
[2022-04-16] VITALS: BP 128/65; PULSE 84
[2022-04-16] MEDS: diphenhydrAMINE 50 MG/ML SDV IM ONE (00:16)
[2022-04-16] MEDS: methylPREDNISolone Sodium Succinate 125 MG/2 ML SDV IM ONE (00:16)
== END 2022-04-16 01:29 | disposition home or self-care (01) ==
LOC: DL.ED 22:59
DX: R21 Rash and other nonspecific skin eruption (principal); I11.0 Hypertensive heart disease with heart failure; I50.9 Heart failure, unspecified; E78.00 Pure hypercholesterolemia, unspecified; J44.9 Chronic obstructive pulmonary disease, unspecified; M19.90 Unspecified osteoarthritis, unspecified site; E11.21 Type 2 diabetes mellitus with diabetic nephropathy; D64.9 Anemia, unspecified; E66.9 Obesity, unspecified; Z68.30 Body mass index [BMI] 30.0-30.9, adult; Z88.1 Allergy status to other antibiotic agents; Z88.5 Allergy status to narcotic agent; Z88.0 Allergy status to penicillin; Z79.82 Long term (current) use of aspirin; Z79.84 Long term (current) use of oral hypoglycemic drugs; Z79.899 Other long term (current) drug therapy
CPT/HCPCS: 96372; 99282; J1200; J2930

== ENCOUNTER 2022-05-31 18:54 | Emergency (ER) | payer MEDICARE, OTHER ==
[2022-05-31] MEDS ORDERED: Sodium Chloride 0.9% 10 ML Syringe FLUSH PRN (19:02)
[2022-05-31] MEDS ORDERED: Pantoprazole 40 MG Vial IVPUSH ONE (19:03)
[2022-05-31 19:09] VITALS: BP 126/62; PULSE 94
[2022-05-31] MEDS ORDERED: Octreotide 100 MCG in Sodium Chloride 0.9% 99 ML IV SCH (19:15)
[2022-05-31] MEDS ORDERED: Ondansetron 4 MG/2 ML SDV IVPUSH ONE (19:24)
[2022-05-31 19:29] LABS: ANION GAP 13.8 mEq/L (7-13); CHLORIDE,CL 107 mmol/L (98-107); SODIUM,NA 142 mmol/L (136-145)
[2022-05-31 19:30] LABS: ESTIMATED GFR 48 mL/min (>=60)
[2022-05-31 19:41] LABS: PTT,PARTIAL THROMBOPLSTIN TIME 27.2 SEC (22.0-34.0)
[2022-05-31] MEDS ORDERED: Octreotide 500 MCG in Sodium Chloride 0.9% 250 ML IV SCH (22:00)
== END 2022-05-31 22:00 ==
LOC: DL.ED 18:54
DX: K92.0 Hematemesis (principal); D62 Acute posthemorrhagic anemia; I25.10 Atherosclerotic heart disease of native coronary artery without angina pectoris; I11.0 Hypertensive heart disease with heart failure; I50.9 Heart failure, unspecified; E78.00 Pure hypercholesterolemia, unspecified; J44.9 Chronic obstructive pulmonary disease, unspecified; E11.21 Type 2 diabetes mellitus with diabetic nephropathy; M19.90 Unspecified osteoarthritis, unspecified site; E66.9 Obesity, unspecified; Z68.33 Body mass index [BMI] 33.0-33.9, adult; Z98.61 Coronary angioplasty status; Z88.1 Allergy status to other antibiotic agents; Z88.0 Allergy status to penicillin; Z88.5 Allergy status to narcotic agent; Z79.01 Long term (current) use of anticoagulants; Z79.82 Long term (current) use of aspirin; Z79.02 Long term (current) use of antithrombotics/antiplatelets; Z79.84 Long term (current) use of oral hypoglycemic drugs; Z79.899 Other long term (current) drug therapy; Z20.822 Contact with and (suspected) exposure to COVID-19
CPT/HCPCS: 36415; 80053; 80307; 83605; 83735; 85025; 85610; 85730; 86140; 86850; 86900; 86901; 96365; 96366; 96375; 96376; 99284; 99285-25; C9113; J2354-JA; J2405; J3490; J7050; U0002

== ENCOUNTER 2022-06-21 12:47 | Emergency (ER) | payer MEDICARE, OTHER ==
[2022-06-21 13:13] VITALS: BP 139/78; PULSE 89
== END 2022-06-21 14:44 | disposition home or self-care (01) ==
LOC: DL.ED 12:47
DX: S80.01XA Contusion of right knee, initial encounter (principal); J44.1 Chronic obstructive pulmonary disease with (acute) exacerbation; M54.2 Cervicalgia; I11.0 Hypertensive heart disease with heart failure; I50.9 Heart failure, unspecified; E78.00 Pure hypercholesterolemia, unspecified; E11.21 Type 2 diabetes mellitus with diabetic nephropathy; M19.90 Unspecified osteoarthritis, unspecified site; E66.9 Obesity, unspecified; Z88.0 Allergy status to penicillin; Z88.1 Allergy status to other antibiotic agents; Z88.5 Allergy status to narcotic agent; Z79.82 Long term (current) use of aspirin; Z79.899 Other long term (current) drug therapy; Z79.84 Long term (current) use of oral hypoglycemic drugs; W01.0XXA Fall on same level from slipping, tripping and stumbling without subsequent striking against object, initial encounter
CPT/HCPCS: 73562-RT; 99283

== ENCOUNTER 2022-08-20 11:48 | Emergency (ER) | payer MEDICARE, OTHER ==
[2022-08-20] MEDS ORDERED: methylPREDNISolone Sodium Succinate 125 MG/2 ML SDV IM ONE (12:06)
[2022-08-20] MEDS ORDERED: Albuterol/Ipratropium 3.0-0.5 MG/3 ML Neb Soln NEB ONE (12:06)
[2022-08-20 12:10] VITALS: BP 108/71; PULSE 90
== END 2022-08-20 12:41 | disposition home or self-care (01) ==
LOC: DL.ED 11:48
DX: J44.1 Chronic obstructive pulmonary disease with (acute) exacerbation (principal); I11.0 Hypertensive heart disease with heart failure; I50.9 Heart failure, unspecified; E78.00 Pure hypercholesterolemia, unspecified; E11.21 Type 2 diabetes mellitus with diabetic nephropathy; E66.9 Obesity, unspecified; Z68.33 Body mass index [BMI] 33.0-33.9, adult; Z88.1 Allergy status to other antibiotic agents; Z88.5 Allergy status to narcotic agent; Z88.0 Allergy status to penicillin; Z79.82 Long term (current) use of aspirin; Z79.02 Long term (current) use of antithrombotics/antiplatelets; Z79.899 Other long term (current) drug therapy
CPT/HCPCS: 96372; 99285; J2930; J7620-GY

== ENCOUNTER 2022-10-27 13:47 | Emergency (ER) | payer MEDICARE, OTHER ==
[2022-10-27] MEDS ORDERED: Sodium Chloride 0.9% 10 ML Syringe FLUSH PRN (14:00)
[2022-10-27 14:05] VITALS: BP 115/59; PULSE 94
[2022-10-27] MEDS ORDERED: Pantoprazole 40 MG Vial IVPUSH ONE (14:06)
[2022-10-27] MEDS ORDERED: Ondansetron 4 MG/2 ML SDV IV ONE (14:07)
[2022-10-27] MEDS ORDERED: Pantoprazole 40 MG in Sodium Chloride 0.9% 100 ML IV SCH (14:15)
[2022-10-27 14:36] LABS: BASOPHILS PERCENT AUTO 0.1 % (0.0-1.0); EOSINOPHILS PERCENT AUTO 0.4 % (1.0-3.0); HEMATOCRIT 26.7 % (37.0-47.0); HEMOGLOBIN 8.4 g/dL (12.0-16.0); LYMPHOCYTES PERCENT AUTO 16.8 % (20.5-50.1); MEAN CORPUSCULAR HEMOGLOBIN 27.6 pg (27.0-34.0); MEAN CORPUSCULAR HGB CONC 31.5 g/dL (33.0-35.0); MEAN CORPUSCULAR VOLUME 87.8 fL (80-100); MONOCYTES PERCENT AUTO 9.5 % (2-8); NEUTROPHILS PERCENT AUTO 73.2 % (42.2-75.2); PLATELET COUNT,PLT 197 10^3/uL (150-450); RED BLOOD CELL COUNT 3.04 10^6/uL (4.2-5.4); WHITE BLOOD CELL COUNT,WBC 7.7 10^3/uL (5.0-10.0)
[2022-10-27 14:56] LABS: B-TYPE NATRIURETIC PEPTIDE,BNP 15 pg/ml (0-100)
[2022-10-27 14:59] LABS: ALANINE AMINOTRANSFERASE,ALT 25 U/L (14-59); ALBUMIN 2.9 g/dL (3.4-5.0); ALKALINE PHOSPHATASE 155 U/L (46-116); ASPARTATE AMNIOTRANSFERASE,AST 40 U/L (15-37); BILIRUBIN TOTAL 0.6 mg/dL (0.2-1.0); BLOOD UREA NITROGEN,BUN 40 mg/dL (7-18); BUN/CREATININE RATIO 39.6 (No establ ref range); CALCIUM 8.2 mg/dL (8.5-10.1); CARBON DIOXIDE,CO2 24 mmol/L (21-32); CHLORIDE,CL 107 mmol/L (98-107); CREATININE 1.01 mg/dL (0.55-1.02); EST CRCL DRUG DOSING (CG) 35.52 mL/min; GLUCOSE RANDOM 144 mg/dL (70-99); LIPASE 72 U/L (73-393); PROTEIN TOTAL,TP 6.5 g/dL (6.4-8.2); SODIUM,NA 139 mmol/L (136-145)
[2022-10-27 15:01] LABS: A/G RATIO 0.81; ESTIMATED GFR 56 mL/min (>=60)
[2022-10-27 15:03] LABS: LACTIC ACID 2.4 mmol/L (0.4-2.0)
[2022-10-27 15:04] LABS: INR 1.1 (0.9-1.2); PROTHROMBIN TIME 11.4 SEC (9.0-12.0); PTT,PARTIAL THROMBOPLSTIN TIME 26.3 SEC (22.0-34.0)
== END 2022-10-27 16:55 ==
LOC: DL.ED 13:47
DX: K92.2 Gastrointestinal hemorrhage, unspecified (principal); I11.0 Hypertensive heart disease with heart failure; I50.9 Heart failure, unspecified; E78.00 Pure hypercholesterolemia, unspecified; J44.9 Chronic obstructive pulmonary disease, unspecified; E11.21 Type 2 diabetes mellitus with diabetic nephropathy; E66.9 Obesity, unspecified; Z68.30 Body mass index [BMI] 30.0-30.9, adult; M19.90 Unspecified osteoarthritis, unspecified site; Z88.1 Allergy status to other antibiotic agents; Z88.0 Allergy status to penicillin; Z88.5 Allergy status to narcotic agent; Z79.82 Long term (current) use of aspirin; Z79.899 Other long term (current) drug therapy; Z79.84 Long term (current) use of oral hypoglycemic drugs
CPT/HCPCS: 36415; 80053; 82272; 83605; 83690; 83880; 84145; 84484; 85025; 85610; 85730; 93005; 96365; 96366; 96375; 96376; 99285; C9113; J2405; J3490

== ENCOUNTER 2023-06-11 16:13 | Emergency (ER) | payer MEDICARE, OTHER ==
[2023-06-11 16:57] LABS: BASOPHILS PERCENT AUTO 0.1 % (0.0-1.0); EOSINOPHILS PERCENT AUTO 2.9 % (1.0-3.0); HEMATOCRIT 40.9 % (37.0-47.0); HEMOGLOBIN 13.3 g/dL (12.0-16.0); LYMPHOCYTES PERCENT AUTO 43.8 % (20.5-50.1); MEAN CORPUSCULAR HEMOGLOBIN 29.7 pg (27.0-34.0); MEAN CORPUSCULAR HGB CONC 32.5 g/dL (33.0-35.0); MEAN CORPUSCULAR VOLUME 91.3 fL (80-100); NEUTROPHILS PERCENT AUTO 41.2 % (42.2-75.2); PLATELET COUNT,PLT 171 10^3/uL (150-450); RED BLOOD CELL COUNT 4.48 10^6/uL (4.2-5.4); WHITE BLOOD CELL COUNT,WBC 6.9 10^3/uL (5.0-10.0)
[2023-06-11 17:23] VITALS: BP 126/79; PULSE 79
[2023-06-11 17:27] LABS: A/G RATIO 0.8; ALBUMIN 3.4 g/dL (3.4-5.0); ANION GAP 11.3 mEq/L (7-13); BILIRUBIN TOTAL 0.9 mg/dL (0.2-1.0); BUN/CREATININE RATIO 12.9 (No establ ref range); CALCIUM 8.6 mg/dL (8.5-10.1); CREATININE 0.85 mg/dL (0.55-1.02); EST CRCL DRUG DOSING (CG) 41.48 mL/min; POTASSIUM,K 3.3 mmol/L (3.5-5.1); PROTEIN TOTAL,TP 7.5 g/dL (6.4-8.2)
[2023-06-11 17:39] LABS: CORONAVIRUS COVID-19 NAA NEGATIVE (NEGATIVE); INFLUENZA A NAA NEGATIVE (NEGATIVE); INFLUENZA B NAA NEGATIVE (NEGATIVE); RESPIRATORY SYNCYTIAL VIR NAA NEGATIVE (NEGATIVE)
[2023-06-11] MEDS: Sodium Chloride 0.9% 10 ML Syringe FLUSH PRN (18:28)
[2023-06-11] MEDS ORDERED: methylPREDNISolone Sodium Succinate 125 MG/2 ML SDV IVPUSH ONE (18:34)
[2023-06-11] MEDS: methylPREDNISolone Sodium Succinate 125 MG/2 ML SDV IM ONE (18:43)
== END 2023-06-11 18:55 | disposition home or self-care (01) ==
LOC: DL.ED 16:13
DX: J44.1 Chronic obstructive pulmonary disease with (acute) exacerbation (principal); I11.0 Hypertensive heart disease with heart failure; I50.9 Heart failure, unspecified; E78.00 Pure hypercholesterolemia, unspecified; J44.9 Chronic obstructive pulmonary disease, unspecified; E11.21 Type 2 diabetes mellitus with diabetic nephropathy; E66.9 Obesity, unspecified; Z68.33 Body mass index [BMI] 33.0-33.9, adult; Z86.16 Personal history of COVID-19; Z88.5 Allergy status to narcotic agent; Z88.0 Allergy status to penicillin; Z88.1 Allergy status to other antibiotic agents; Z79.51 Long term (current) use of inhaled steroids; Z79.82 Long term (current) use of aspirin; Z79.84 Long term (current) use of oral hypoglycemic drugs; Z79.899 Other long term (current) drug therapy; Z90.49 Acquired absence of other specified parts of digestive tract
CPT/HCPCS: 0241U; 36415; 71045; 80053; 83605; 84484; 85025; 93005; 96372; 99285; J2930; J3490

== ENCOUNTER 2023-07-13 18:39 | Emergency (ER) | payer MEDICARE, OTHER ==
[2023-07-13 19:08] VITALS: BP 138/67; PULSE 75
[2023-07-13 19:31] LABS: BASOPHILS PERCENT AUTO 0.2 % (0.0-1.0); EOSINOPHILS PERCENT AUTO 3.4 % (1.0-3.0); HEMATOCRIT 41.5 % (37.0-47.0); HEMOGLOBIN 13.4 g/dL (12.0-16.0); LYMPHOCYTES PERCENT AUTO 43.3 % (20.5-50.1); MEAN CORPUSCULAR HEMOGLOBIN 29.6 pg (27.0-34.0); MEAN CORPUSCULAR HGB CONC 32.3 g/dL (33.0-35.0); MEAN CORPUSCULAR VOLUME 91.6 fL (80-100); MONOCYTES PERCENT AUTO 14.4 % (2-8); NEUTROPHILS PERCENT AUTO 38.7 % (42.2-75.2); PLATELET COUNT,PLT 192 10^3/uL (150-450); RED BLOOD CELL COUNT 4.53 10^6/uL (4.2-5.4); WHITE BLOOD CELL COUNT,WBC 5.8 10^3/uL (5.0-10.0)
[2023-07-13] MEDS: Sodium Chloride 0.9% 10 ML Syringe FLUSH PRN (19:31)
[2023-07-13 19:41] LABS: INR 1.1 (0.9-1.2); PROTHROMBIN TIME 11.1 SEC (9.0-12.0); PTT,PARTIAL THROMBOPLSTIN TIME 31.9 SEC (22.0-34.0)
[2023-07-13 19:42] LABS: A/G RATIO 0.9; ALBUMIN 3.4 g/dL (3.4-5.0); ANION GAP 11.4 mEq/L (7-13); BILIRUBIN TOTAL 0.9 mg/dL (0.2-1.0); BUN/CREATININE RATIO 12.5 (No establ ref range); CALCIUM 8.1 mg/dL (8.5-10.1); CREATININE 0.96 mg/dL (0.55-1.02); EST CRCL DRUG DOSING (CG) 36.73 mL/min; POTASSIUM,K 3.4 mmol/L (3.5-5.1); PROTEIN TOTAL,TP 7.1 g/dL (6.4-8.2)
[2023-07-13] MEDS: methylPREDNISolone Sodium Succinate 125 MG/2 ML SDV IVPUSH ONE (21:19)
[2023-07-13] MEDS: Take Home: predniSONE 20 MG, 4 Tab Pack PO ONE (21:22)
== END 2023-07-13 21:29 | disposition home or self-care (01) ==
LOC: DL.ED 18:39
DX: J44.1 Chronic obstructive pulmonary disease with (acute) exacerbation (principal); I11.0 Hypertensive heart disease with heart failure; I50.9 Heart failure, unspecified; E78.00 Pure hypercholesterolemia, unspecified; J44.9 Chronic obstructive pulmonary disease, unspecified; E11.21 Type 2 diabetes mellitus with diabetic nephropathy; E66.9 Obesity, unspecified; Z86.16 Personal history of COVID-19; Z79.82 Long term (current) use of aspirin; Z79.899 Other long term (current) drug therapy; Z88.0 Allergy status to penicillin; Z88.1 Allergy status to other antibiotic agents; Z79.02 Long term (current) use of antithrombotics/antiplatelets; Z79.84 Long term (current) use of oral hypoglycemic drugs; Z68.30 Body mass index [BMI] 30.0-30.9, adult
CPT/HCPCS: 36415; 70450; 71045; 72125; 80053; 84484; 85025; 85610; 85730; 93005; 93010; 96374; 99284; 99285-25; A9270-GY; J2930; J3490

== ENCOUNTER 2024-02-17 19:26 | Emergency (ER) | payer MEDICARE, OTHER ==
[2024-02-17] MEDS ORDERED: Albuterol/Ipratropium 3.0-0.5 MG/3 ML Neb Soln ONE (19:28)
[2024-02-17] MEDS: Magnesium Sulfate/Water Premix 2 GM in Premix Bag 1 BAG IV ONE (19:37)
[2024-02-17] MEDS: Dexamethasone 4 MG/ML SDV PO ONE (19:37)
[2024-02-17] MEDS: Albuterol/Ipratropium 3.0-0.5 MG/3 ML Neb Soln NEB ONE (19:38)
[2024-02-17 19:41] VITALS: BP 169/127; PULSE 74
[2024-02-17] MEDS ORDERED: Sodium Chloride 0.9% 10 ML Syringe FLUSH PRN (19:42)
[2024-02-17 19:48] LABS: BASOPHILS PERCENT AUTO 0.4 % (0.0-1.0); HEMOGLOBIN 13.1 g/dL (12.0-16.0); LYMPHOCYTES PERCENT AUTO 43.1 % (20.5-50.1); MEAN CORPUSCULAR HEMOGLOBIN 30.3 pg (27.0-34.0); MEAN CORPUSCULAR HGB CONC 32.8 g/dL (33.0-35.0); MEAN CORPUSCULAR VOLUME 92.4 fL (80-100); MONOCYTES PERCENT AUTO 12.6 % (2-8); NEUTROPHILS PERCENT AUTO 38.9 % (42.2-75.2); PLATELET COUNT,PLT 161 10^3/uL (150-450); RED BLOOD CELL COUNT 4.33 10^6/uL (4.2-5.4); WHITE BLOOD CELL COUNT,WBC 4.8 10^3/uL (5.0-10.0)
[2024-02-17 20:04] LABS: A/G RATIO 0.9; ALBUMIN 3.7 g/dL (3.4-5.0); ANION GAP 11.7 mEq/L (7-13); BILIRUBIN TOTAL 0.7 mg/dL (0.2-1.0); BUN/CREATININE RATIO 16.9 (No establ ref range); CALCIUM 8.8 mg/dL (8.5-10.1); CREATININE 0.83 mg/dL (0.55-1.02); EST CRCL DRUG DOSING (CG) 41.74 mL/min; MAGNESIUM 1.9 mg/dL (1.8-2.4); POTASSIUM,K 3.7 mmol/L (3.5-5.1); PROTEIN TOTAL,TP 7.6 g/dL (6.4-8.2)
== END 2024-02-17 20:49 | disposition home or self-care (01) ==
LOC: DL.ED 19:26
DX: J44.1 Chronic obstructive pulmonary disease with (acute) exacerbation (principal); J18.9 Pneumonia, unspecified organism; I11.0 Hypertensive heart disease with heart failure; I50.9 Heart failure, unspecified; E78.00 Pure hypercholesterolemia, unspecified; E11.9 Type 2 diabetes mellitus without complications; E66.9 Obesity, unspecified; Z86.16 Personal history of COVID-19; Z90.49 Acquired absence of other specified parts of digestive tract; Z79.899 Other long term (current) drug therapy; Z79.82 Long term (current) use of aspirin; Z88.0 Allergy status to penicillin; Z88.5 Allergy status to narcotic agent; Z88.1 Allergy status to other antibiotic agents; Z88.8 Allergy status to other drugs, medicaments and biological substances
CPT/HCPCS: 36415; 71045; 80053; 83735; 85025; 86140; 94640; 96365; 99284; 99285; J1100; J3475; J7620-GY

== ENCOUNTER 2024-02-23 20:07 | Emergency (ER) | payer MEDICARE, OTHER ==
[2024-02-23 20:24] VITALS: BP 126/66; PULSE 97
[2024-02-23 20:34] LABS: O2 DELIVERY DEVICE NASAL CANNULA
[2024-02-23 20:35] LABS: HEMATOCRIT 40.3 % (37.0-47.0); HEMOGLOBIN 13.1 g/dL (12.0-16.0); MEAN CORPUSCULAR HEMOGLOBIN 30.3 pg (27.0-34.0); MEAN CORPUSCULAR HGB CONC 32.5 g/dL (33.0-35.0); MEAN CORPUSCULAR VOLUME 93.3 fL (80-100); RED BLOOD CELL COUNT 4.32 10^6/uL (4.2-5.4); WHITE BLOOD CELL COUNT,WBC 6.2 10^3/uL (5.0-10.0)
[2024-02-23 20:41] LABS: BICARBONATE,VENOUS 28 mmol/l (19-25); PCO2 VENOUS 60 mmHg (41-51); PO2 VENOUS 45 mmHg (35-42)
[2024-02-23 20:42] LABS: BASE EXCESS VENOUS 1 mmol/l ((-2)-(+3)); O2 SATURATION VENOUS 74 % (60-80)
[2024-02-23 20:58] LABS: A/G RATIO 0.9; ALBUMIN 3.4 g/dL (3.4-5.0); BILIRUBIN TOTAL 1.2 mg/dL (0.2-1.0); BUN/CREATININE RATIO 12.9 (No establ ref range); CALCIUM 8.6 mg/dL (8.5-10.1); CREATININE 1.4 mg/dL (0.55-1.02); EST CRCL DRUG DOSING (CG) 24.74 mL/min
== END 2024-02-23 23:28 | disposition home or self-care (01) ==
LOC: DL.ED 20:07
DX: J44.1 Chronic obstructive pulmonary disease with (acute) exacerbation (principal); I11.0 Hypertensive heart disease with heart failure; I50.9 Heart failure, unspecified; E78.00 Pure hypercholesterolemia, unspecified; Z95.5 Presence of coronary angioplasty implant and graft; E11.21 Type 2 diabetes mellitus with diabetic nephropathy; E66.9 Obesity, unspecified; Z68.30 Body mass index [BMI] 30.0-30.9, adult; Z86.16 Personal history of COVID-19; Z90.49 Acquired absence of other specified parts of digestive tract; Z79.82 Long term (current) use of aspirin; Z79.899 Other long term (current) drug therapy; Z88.0 Allergy status to penicillin; Z91.048 Other nonmedicinal substance allergy status; Z88.1 Allergy status to other antibiotic agents; Z88.8 Allergy status to other drugs, medicaments and biological substances
CPT/HCPCS: 36415; 71046; 80053; 82803; 83880; 84484; 85027; 93005; 99284; 99285

== ENCOUNTER 2024-04-27 12:29 | Inpatient (IN) | payer MEDICARE, OTHER ==
[2024-04-27] MEDS ORDERED: Sodium Chloride 0.9% 10 ML Syringe FLUSH PRN (12:34)
[2024-04-27] MEDS: Albuterol/Ipratropium 3.0-0.5 MG/3 ML Neb Soln NEB ONE (12:52)
[2024-04-27] MEDS: methylPREDNISolone Sodium Succinate 125 MG/2 ML SDV IVPUSH ONE (12:52)
[2024-04-27 13:07] LABS: BASOPHILS PERCENT AUTO 0.1 % (0.0-1.0); EOSINOPHILS PERCENT AUTO 0.1 % (1.0-3.0); HEMATOCRIT 40.1 % (37.0-47.0); HEMOGLOBIN 13.1 g/dL (12.0-16.0); LYMPHOCYTES PERCENT AUTO 12.8 % (20.5-50.1); MEAN CORPUSCULAR HEMOGLOBIN 29.8 pg (27.0-34.0); MEAN CORPUSCULAR HGB CONC 32.7 g/dL (33.0-35.0); MEAN CORPUSCULAR VOLUME 91.1 fL (80-100); MONOCYTES PERCENT AUTO 8.4 % (2-8); NEUTROPHILS PERCENT AUTO 78.6 % (42.2-75.2); PLATELET COUNT,PLT 165 10^3/uL (150-450); WHITE BLOOD CELL COUNT,WBC 18.4 10^3/uL (5.0-10.0)
[2024-04-27 13:28] LABS: A/G RATIO 0.77; ANION GAP 14.8 mEq/L (7-13); BILIRUBIN TOTAL 2.2 mg/dL (0.2-1.0); BUN/CREATININE RATIO 20.5 (No establ ref range); C-REACTIVE PROTEIN 13.86 ng/dL (<=0.50); CALCIUM 8.3 mg/dL (8.5-10.1); CREATININE 1.12 mg/dL (0.55-1.02); EST CRCL DRUG DOSING (CG) 32.29 mL/min; MAGNESIUM 1.9 mg/dL (1.8-2.4); POTASSIUM,K 3.8 mmol/L (3.5-5.1); PROTEIN TOTAL,TP 6.9 g/dL (6.4-8.2)
[2024-04-27 13:32] LABS: LACTIC ACID 1.7 mmol/L (0.4-2.0)
[2024-04-27] MEDS: Sodium Chloride 0.9% 1,000 ML IV ONE (14:20)
[2024-04-27] MEDS: Levofloxacin/Dextrose 5%-Water 750 MG in Premix Bag 1 BAG IV ONE (14:25)
[2024-04-27 14:28] LABS: APPEARANCE,URINE SLIGHTLY CLOUDY (CLEAR); BILIRUBIN,URINE NEGATIVE (NEGATIVE); COLOR,URINE DARK YELLOW (YELLOW); GLUCOSE,URINE NEGATIVE (NEGATIVE); KETONES,URINE 15 (NEGATIVE); LEUKOCYTE ESTERASE,URINE NEGATIVE (NEGATIVE); NITRITE,URINE NEGATIVE (NEGATIVE); OCCULT BLOOD,URINE NEGATIVE (NEGATIVE); PH,URINE 5.5 (5.0-9.0); PROTEIN,URINE 30 (NEGATIVE)
[2024-04-27 15:29] LABS: BACTERIA,URINE FEW /HPF (0-FEW/HPF); EPITHELIAL CELLS,URINE MODERATE /HPF (NOT SEEN); MUCUS,URINE FEW /LPF (NOT SEEN); RBC,URINE 0-5 /HPF (0-5); WBC,URINE 20-30 /HPF (0-5/HPF)
[2024-04-27] MEDS ORDERED: Ondansetron 4 MG/2 ML SDV IVPUSH PRN (15:56)
[2024-04-27] MEDS ORDERED: Acetaminophen 325 MG Tab PO PRN (15:56)
[2024-04-27] MEDS ORDERED: Docusate Sodium 100 MG Cap PO PRN (15:56)
[2024-04-27] MEDS ORDERED: Albuterol/Ipratropium 3.0-0.5 MG/3 ML Neb Soln NEB PRN (15:56)
[2024-04-27] MEDS: Enoxaparin 40 MG/0.4 ML Syringe SUBCUT SCH (16:29)
[2024-04-27] MEDS: Sodium Chloride 0.9% 1,000 ML IV SCH (16:29)
[2024-04-27] MEDS: oxyCODONE 5 MG Tab PO PRN (21:23)
[2024-04-27] MEDS: Melatonin 3 MG Tab PO PRN (21:23)
[2024-04-28] MEDS ORDERED: Polyvinyl Alcohol 1.4% Ophth Soln 15 ML Bottle EYEBOTH PRN (00:54)
[2024-04-28] MEDS: Melatonin 3 MG Tab PO SCH (01:30)
[2024-04-28] MEDS: Tiotropium Bromide 4 GM Inhalation Spray (2.5mcg/1 dose; 10 doses) INH SCH (05:19)
[2024-04-28] MEDS: Arformoterol 15 MCG/2 ML Neb Soln NEB SCH (05:22)
[2024-04-28 06:33] LABS: HEMATOCRIT 35.8 % (37.0-47.0); HEMOGLOBIN 11.9 g/dL (12.0-16.0); MEAN CORPUSCULAR HEMOGLOBIN 30.1 pg (27.0-34.0); MEAN CORPUSCULAR HGB CONC 33.2 g/dL (33.0-35.0); MEAN CORPUSCULAR VOLUME 90.4 fL (80-100); RED BLOOD CELL COUNT 3.96 10^6/uL (4.2-5.4); WHITE BLOOD CELL COUNT,WBC 10.9 10^3/uL (5.0-10.0)
[2024-04-28 06:47] LABS: ANION GAP 13.3 mEq/L (7-13); CALCIUM 8.6 mg/dL (8.5-10.1); CREATININE 0.81 mg/dL (0.55-1.02); EST CRCL DRUG DOSING (CG) 42.77 mL/min; POTASSIUM,K 4.3 mmol/L (3.5-5.1)
[2024-04-28] MEDS ORDERED: Non-Formulary Medication 1 Each (Formoterol [Perforomist] 20 MCG/2 ML Neb) NEB SCH (09:00)
[2024-04-28] MEDS ORDERED: Non-Formulary Medication 1 Each (Ketotifen [Ketotifen 0.025% Ophth Soln] 5 ML Bottle) EYEBOTH SCH (09:00)
[2024-04-28] MEDS: glipiZIDE 2.5 MG Tab.ER PO SCH (10:54)
[2024-04-28] MEDS: Spironolactone 25 MG Tab PO SCH (10:54)
[2024-04-28] MEDS: Cholecalciferol (Vitamin D3) 25 MCG Tab PO SCH (10:54)
[2024-04-28] MEDS: Budesonide 0.5 MG/2 ML Neb Susp INH SCH (10:56)
[2024-04-28] MEDS: Multivitamins with Iron/Calcium/Folic Acid/Minerals Tab PO SCH (10:56)
[2024-04-28] MEDS: Loratadine 10 MG Tab PO SCH (10:57)
[2024-04-28] MEDS: Aspirin 81 MG Tab.Chew PO SCH (12:12)
[2024-04-28] MEDS: Sertraline 50 MG Tab PO SCH ×2 (12:13→12:25)
[2024-04-28] MEDS: Furosemide 20 MG Tab PO SCH (12:13)
[2024-04-28] MEDS: Lisinopril 10 MG Tab PO SCH (12:13)
[2024-04-28] MEDS: atorvaSTATin 20 MG Tab PO SCH ×2 (12:13→21:29)
[2024-04-28] MEDS: Levofloxacin/Dextrose 5%-Water 750 MG in Premix Bag 1 BAG IV SCH (14:48)
[2024-04-28] MEDS: Montelukast 10 MG Tab PO SCH (21:29)
[2024-04-29 06:40] LABS: HEMATOCRIT 37.5 % (37.0-47.0); HEMOGLOBIN 12.6 g/dL (12.0-16.0); MEAN CORPUSCULAR HEMOGLOBIN 30.2 pg (27.0-34.0); MEAN CORPUSCULAR HGB CONC 33.6 g/dL (33.0-35.0); MEAN CORPUSCULAR VOLUME 89.9 fL (80-100); RED BLOOD CELL COUNT 4.17 10^6/uL (4.2-5.4); WHITE BLOOD CELL COUNT,WBC 11.4 10^3/uL (5.0-10.0)
[2024-04-29 06:55] LABS: ANION GAP 12.4 mEq/L (7-13); CALCIUM 8.5 mg/dL (8.5-10.1); CREATININE 0.83 mg/dL (0.55-1.02); EST CRCL DRUG DOSING (CG) 41.74 mL/min; POTASSIUM,K 4.4 mmol/L (3.5-5.1)
[2024-04-29 11:38] VITALS: BP 121/64; PULSE 77
== END 2024-04-29 12:15 | disposition home or self-care (01) | DRG 193 ==
LOC: DL.ED 12:29 → DL.MS 14:28 → DL.ED 14:44
PROVIDERS: ADMIT Internal Medicine; ATTEND Internal Medicine
DX: J18.9 Pneumonia, unspecified organism (principal); J96.01 Acute respiratory failure with hypoxia; J44.0 Chronic obstructive pulmonary disease with (acute) lower respiratory infection; I25.10 Atherosclerotic heart disease of native coronary artery without angina pectoris; J44.9 Chronic obstructive pulmonary disease, unspecified; E78.00 Pure hypercholesterolemia, unspecified; E11.21 Type 2 diabetes mellitus with diabetic nephropathy; E66.9 Obesity, unspecified; Z66 Do not resuscitate; M19.90 Unspecified osteoarthritis, unspecified site; F41.9 Anxiety disorder, unspecified; F32.A Depression, unspecified; Z88.0 Allergy status to penicillin; Z88.1 Allergy status to other antibiotic agents; Z88.6 Allergy status to analgesic agent; I50.9 Heart failure, unspecified; I11.0 Hypertensive heart disease with heart failure; H54.7 Unspecified visual loss; Z99.81 Dependence on supplemental oxygen; Z95.5 Presence of coronary angioplasty implant and graft; Z79.51 Long term (current) use of inhaled steroids; Z79.82 Long term (current) use of aspirin; Z79.02 Long term (current) use of antithrombotics/antiplatelets; Z79.899 Other long term (current) drug therapy; Z79.52 Long term (current) use of systemic steroids; Z79.84 Long term (current) use of oral hypoglycemic drugs; Z68.28 Body mass index [BMI] 28.0-28.9, adult; Z86.16 Personal history of COVID-19; Z90.89 Acquired absence of other organs; Z90.49 Acquired absence of other specified parts of digestive tract; Z98.890 Other specified postprocedural states
CPT/HCPCS: 36415; 71045; 80053; 81001; 83605; 83735; 83880; 84145; 85025; 86140; 87040 ×2; 87428; J1956; J2919; J7030; 80048; 82947; 85027; 97161-GP; 97165-GO; 99223; 99232; 99239; A9270-GY; J1650; J3490; J7620-GY

== ENCOUNTER 2024-05-08 11:32 | Emergency (ER) | payer MEDICARE, OTHER ==
[2024-05-08] MEDS ORDERED: Sodium Chloride 0.9% 10 ML Syringe FLUSH PRN (11:51)
[2024-05-08 11:58] LABS: BASOPHILS PERCENT AUTO 0.3 % (0.0-1.0); EOSINOPHILS PERCENT AUTO 2.1 % (1.0-3.0); HEMATOCRIT 37.3 % (37.0-47.0); HEMOGLOBIN 12.2 g/dL (12.0-16.0); LYMPHOCYTES PERCENT AUTO 29.6 % (20.5-50.1); MEAN CORPUSCULAR HEMOGLOBIN 29.7 pg (27.0-34.0); MEAN CORPUSCULAR HGB CONC 32.7 g/dL (33.0-35.0); MEAN CORPUSCULAR VOLUME 90.8 fL (80-100); MONOCYTES PERCENT AUTO 11.1 % (2-8); NEUTROPHILS PERCENT AUTO 56.9 % (42.2-75.2); PLATELET COUNT,PLT 182 10^3/uL (150-450); RED BLOOD CELL COUNT 4.11 10^6/uL (4.2-5.4); WHITE BLOOD CELL COUNT,WBC 7.2 10^3/uL (5.0-10.0)
[2024-05-08 12:10] VITALS: BP 101/59; PULSE 86
[2024-05-08 12:24] LABS: ALBUMIN 2.9 g/dL (3.4-5.0); ANION GAP 10.6 mEq/L (7-13); BILIRUBIN TOTAL 0.6 mg/dL (0.2-1.0); BUN/CREATININE RATIO 21.2 (No establ ref range); C-REACTIVE PROTEIN 1.3 ng/dL (<=0.50); CALCIUM 8.3 mg/dL (8.5-10.1); CREATININE 0.8 mg/dL (0.55-1.02); EST CRCL DRUG DOSING (CG) 43.3 mL/min; POTASSIUM,K 3.6 mmol/L (3.5-5.1); PROTEIN TOTAL,TP 6.7 g/dL (6.4-8.2)
[2024-05-08 12:27] LABS: LACTIC ACID 1.7 mmol/L (0.4-2.0)
[2024-05-08 12:29] LABS: A/G RATIO 0.76
== END 2024-05-08 13:05 | disposition home or self-care (01) ==
LOC: DL.ED 11:32
DX: J18.9 Pneumonia, unspecified organism (principal); I11.0 Hypertensive heart disease with heart failure; I50.9 Heart failure, unspecified; J44.9 Chronic obstructive pulmonary disease, unspecified; E78.00 Pure hypercholesterolemia, unspecified; E11.21 Type 2 diabetes mellitus with diabetic nephropathy; E66.9 Obesity, unspecified; Z68.29 Body mass index [BMI] 29.0-29.9, adult; Z95.5 Presence of coronary angioplasty implant and graft; Z90.89 Acquired absence of other organs; Z88.0 Allergy status to penicillin; Z88.1 Allergy status to other antibiotic agents; Z88.5 Allergy status to narcotic agent; Z88.8 Allergy status to other drugs, medicaments and biological substances; Z79.51 Long term (current) use of inhaled steroids; Z79.899 Other long term (current) drug therapy
CPT/HCPCS: 36415; 71045; 80053; 83605; 85025; 86140; 87428-QW; 99284; 99285

== ENCOUNTER 2024-08-09 19:03 | Emergency (ER) | payer MEDICARE, OTHER ==
[2024-08-09] MEDS ORDERED: Sodium Chloride 0.9% 10 ML Syringe FLUSH PRN (19:21)
[2024-08-09] MEDS: Aspirin 81 MG Tab.Chew PO ONE (19:29)
[2024-08-09 19:45] LABS: BASOPHILS PERCENT AUTO 0.4 % (0.0-1.0); EOSINOPHILS PERCENT AUTO 4.9 % (1.0-3.0); HEMATOCRIT 37.8 % (37.0-47.0); HEMOGLOBIN 12.2 g/dL (12.0-16.0); LYMPHOCYTES PERCENT AUTO 33.8 % (20.5-50.1); MEAN CORPUSCULAR HEMOGLOBIN 30.1 pg (27.0-34.0); MEAN CORPUSCULAR HGB CONC 32.3 g/dL (33.0-35.0); MEAN CORPUSCULAR VOLUME 93.3 fL (80-100); MONOCYTES PERCENT AUTO 15.6 % (2-8); NEUTROPHILS PERCENT AUTO 45.3 % (42.2-75.2); PLATELET COUNT,PLT 160 10^3/uL (150-450); RED BLOOD CELL COUNT 4.05 10^6/uL (4.2-5.4); WHITE BLOOD CELL COUNT,WBC 4.9 10^3/uL (5.0-10.0)
[2024-08-09 20:06] LABS: ALANINE AMINOTRANSFERASE,ALT 24 U/L (14-59); ALBUMIN 3.1 g/dL (3.4-5.0); ALKALINE PHOSPHATASE 203 U/L (46-116); ANION GAP 11.9 mEq/L (7-13); ASPARTATE AMNIOTRANSFERASE,AST 31 U/L (15-37); BILIRUBIN TOTAL 0.5 mg/dL (0.2-1.0); BLOOD UREA NITROGEN,BUN 12 mg/dL (7-18); BUN/CREATININE RATIO 14.1 (No establ ref range); CALCIUM 8.3 mg/dL (8.5-10.1); CARBON DIOXIDE,CO2 30 mmol/L (21-32); CHLORIDE,CL 107 mmol/L (98-107); CREATININE 0.85 mg/dL (0.55-1.02); GLUCOSE RANDOM 112 mg/dL (70-99); POTASSIUM,K 3.9 mmol/L (3.5-5.1); PROTEIN TOTAL,TP 7.3 g/dL (6.4-8.2); SODIUM,NA 145 mmol/L (136-145)
[2024-08-09 20:07] LABS: B-TYPE NATRIURETIC PEPTIDE,BNP 50 pg/ml (0-100)
[2024-08-09 20:08] LABS: A/G RATIO 0.74; ESTIMATED GFR 68 mL/min (>=60)
[2024-08-09 20:10] LABS: PROTHROMBIN TIME 10.5 SEC (9.0-12.0)
[2024-08-09 20:15] VITALS: BP 165/71; PULSE 77
[2024-08-09 20:26] LABS: APPEARANCE,URINE CLEAR (CLEAR); BILIRUBIN,URINE NEGATIVE (NEGATIVE); COLOR,URINE YELLOW (YELLOW); GLUCOSE,URINE NEGATIVE (NEGATIVE); KETONES,URINE NEGATIVE (NEGATIVE); LEUKOCYTE ESTERASE,URINE NEGATIVE (NEGATIVE); NITRITE,URINE NEGATIVE (NEGATIVE); OCCULT BLOOD,URINE NEGATIVE (NEGATIVE); PROTEIN,URINE NEGATIVE (NEGATIVE); UROBILINOGEN,URINE 0.2 mg/dL (0.2-1.0)
== END 2024-08-09 22:14 | disposition home or self-care (01) ==
LOC: DL.ED 19:03
DX: J96.11 Chronic respiratory failure with hypoxia (principal); J44.1 Chronic obstructive pulmonary disease with (acute) exacerbation; F41.9 Anxiety disorder, unspecified; R07.89 Other chest pain; I11.0 Hypertensive heart disease with heart failure; I50.9 Heart failure, unspecified; I25.10 Atherosclerotic heart disease of native coronary artery without angina pectoris; E78.00 Pure hypercholesterolemia, unspecified; E66.9 Obesity, unspecified; E11.40 Type 2 diabetes mellitus with diabetic neuropathy, unspecified; M19.90 Unspecified osteoarthritis, unspecified site; Z88.0 Allergy status to penicillin; Z88.8 Allergy status to other drugs, medicaments and biological substances; Z88.1 Allergy status to other antibiotic agents; Z79.899 Other long term (current) drug therapy; Z79.811 Long term (current) use of aromatase inhibitors; Z86.16 Personal history of COVID-19; Z68.30 Body mass index [BMI] 30.0-30.9, adult
CPT/HCPCS: 36415; 71046; 80053; 81003; 83735; 83880; 84484; 85025; 85610; 85730; 87428; 93005; 99285; A9270; 93010; 99284

== ENCOUNTER 2024-08-29 10:23 | Emergency (ER) | payer MEDICARE, OTHER ==
[2024-08-29] MEDS: cefTRIAXone 1 GM, Lidocaine 1% 2.1 ML IM ONE (10:51)
[2024-08-30 15:17] VITALS: BP 117/85; PULSE 90
== END 2024-08-29 11:03 | disposition home or self-care (01) ==
LOC: DL.ED 10:23
DX: J18.9 Pneumonia, unspecified organism (principal); I25.10 Atherosclerotic heart disease of native coronary artery without angina pectoris; I11.0 Hypertensive heart disease with heart failure; I50.9 Heart failure, unspecified; E11.21 Type 2 diabetes mellitus with diabetic nephropathy; E66.9 Obesity, unspecified; Z88.8 Allergy status to other drugs, medicaments and biological substances; Z88.0 Allergy status to penicillin; Z88.5 Allergy status to narcotic agent; Z79.899 Other long term (current) drug therapy; Z86.16 Personal history of COVID-19; Z68.29 Body mass index [BMI] 29.0-29.9, adult
CPT/HCPCS: 96372; 99283; 99284; J0696; J2003

== ENCOUNTER 2024-08-30 12:31 | Emergency (ER) | payer MEDICARE, OTHER ==
[2024-08-30 12:50] LABS: BASOPHILS PERCENT AUTO 0.2 % (0.0-1.0); EOSINOPHILS PERCENT AUTO 1.2 % (1.0-3.0); HEMATOCRIT 39.2 % (37.0-47.0); HEMOGLOBIN 13.1 g/dL (12.0-16.0); LYMPHOCYTES PERCENT AUTO 6.7 % (20.5-50.1); MEAN CORPUSCULAR HEMOGLOBIN 30.8 pg (27.0-34.0); MEAN CORPUSCULAR HGB CONC 33.4 g/dL (33.0-35.0); MONOCYTES PERCENT AUTO 4.1 % (2-8); NEUTROPHILS PERCENT AUTO 87.8 % (42.2-75.2); PLATELET COUNT,PLT 165 10^3/uL (150-450); RED BLOOD CELL COUNT 4.26 10^6/uL (4.2-5.4); WHITE BLOOD CELL COUNT,WBC 5.8 10^3/uL (5.0-10.0)
[2024-08-30 12:54] VITALS: BP 117/75; PULSE 90
[2024-08-30] MEDS: Sodium Chloride 0.9% 500 ML IV SCH (13:00)
[2024-08-30 13:12] LABS: ANION GAP 13.4 mEq/L (7-13); BILIRUBIN TOTAL 1.5 mg/dL (0.2-1.0); BUN/CREATININE RATIO 17.4 (No establ ref range); CALCIUM 8.7 mg/dL (8.5-10.1); CREATININE 0.86 mg/dL (0.55-1.02); EST CRCL DRUG DOSING (CG) 40.28 mL/min; POTASSIUM,K 4.4 mmol/L (3.5-5.1); PROTEIN TOTAL,TP 7.4 g/dL (6.4-8.2)
[2024-08-30 13:13] LABS: A/G RATIO 0.68
[2024-08-30] MEDS: Ondansetron 4 MG Tab.DIS PO ONE (13:13)
== END 2024-08-30 14:38 | disposition home or self-care (01) ==
LOC: DL.ED 12:31
DX: J18.9 Pneumonia, unspecified organism (principal); I25.10 Atherosclerotic heart disease of native coronary artery without angina pectoris; E78.00 Pure hypercholesterolemia, unspecified; I10 Essential (primary) hypertension; E11.21 Type 2 diabetes mellitus with diabetic nephropathy; Z88.1 Allergy status to other antibiotic agents; Z88.5 Allergy status to narcotic agent; Z88.0 Allergy status to penicillin; Z79.51 Long term (current) use of inhaled steroids; Z79.84 Long term (current) use of oral hypoglycemic drugs; Z79.899 Other long term (current) drug therapy
CPT/HCPCS: 36415; 80053; 82947; 85025; 96360; 99284; A9270; J7030

== ENCOUNTER 2025-03-14 20:03 | Emergency (ER) | payer MEDICARE, OTHER ==
[2025-03-14 20:25] LABS: BASOPHILS PERCENT AUTO 0.4 % (0.0-1.0); EOSINOPHILS PERCENT AUTO 3.7 % (1.0-3.0); LYMPHOCYTES PERCENT AUTO 29.6 % (20.5-50.1); MONOCYTES PERCENT AUTO 11.8 % (2-8); NEUTROPHILS PERCENT AUTO 54.5 % (42.2-75.2); PLATELET COUNT,PLT 157 10^3/uL (150-450); RED BLOOD CELL COUNT 4.07 10^6/uL (4.2-5.4); WHITE BLOOD CELL COUNT,WBC 5.1 10^3/uL (5.0-10.0)
[2025-03-14 20:38] LABS: LACTIC ACID 0.9 mmol/L (0.4-2.0)
[2025-03-14 20:40] LABS: A/G RATIO 0.8; ALANINE AMINOTRANSFERASE,ALT 24.0 U/L (14-59); ASPARTATE AMNIOTRANSFERASE,AST 36.0 U/L (15-37); BILIRUBIN TOTAL 0.7 mg/dL (0.2-1.0); BLOOD UREA NITROGEN,BUN 11.0 mg/dL (7-18); CARBON DIOXIDE,CO2 29.0 mmol/L (21-32); CHLORIDE,CL 104.0 mmol/L (98-107); CREATININE 0.72 mg/dL (0.55-1.02); EST CRCL DRUG DOSING (CG) 47.25 mL/min; GLUCOSE RANDOM 144.0 mg/dL (70-99); POTASSIUM,K 3.7 mmol/L (3.5-5.1); PROTEIN TOTAL,TP 8.1 g/dL (6.4-8.2); SODIUM,NA 141.0 mmol/L (136-145)
[2025-03-14 20:44] LABS: ESTIMATED GFR 82.0 mL/min (>=60)
[2025-03-14 20:48] LABS: B-TYPE NATRIURETIC PEPTIDE,BNP 40.0 pg/ml (0-100)
[2025-03-14 22:21] LABS: APPEARANCE,URINE CLEAR (CLEAR); GLUCOSE,URINE NEGATIVE (NEGATIVE); OCCULT BLOOD,URINE NEGATIVE (NEGATIVE)
[2025-03-14 22:31] LABS: EPITHELIAL CELLS,URINE MODERATE /HPF (NOT SEEN)
[2025-03-14 23:08] VITALS: BP 154/77; PULSE 74
== END 2025-03-14 23:06 | disposition home or self-care (01) ==
LOC: DL.ED 20:03
DX: I11.0 Hypertensive heart disease with heart failure (principal); I50.9 Heart failure, unspecified; J98.01 Acute bronchospasm; N39.0 Urinary tract infection, site not specified; I25.10 Atherosclerotic heart disease of native coronary artery without angina pectoris; E11.40 Type 2 diabetes mellitus with diabetic neuropathy, unspecified; J44.9 Chronic obstructive pulmonary disease, unspecified; Z88.1 Allergy status to other antibiotic agents; Z88.0 Allergy status to penicillin; Z88.5 Allergy status to narcotic agent; Z79.899 Other long term (current) drug therapy; Z79.84 Long term (current) use of oral hypoglycemic drugs; Z86.16 Personal history of COVID-19
CPT/HCPCS: 36415; 71045; 80053; 81001; 83605; 83690; 83735; 83880; 84484; 85025; 87086; 93005; 93010; 96374; 99284; 99285; A9270; J0696